=== PATIENT | female | born 1970 | race Caucasian/White ===

== ENCOUNTER → 2017-10-18 10:48 | Outpatient (CLI) | payer BC, SELFPAY ==
[2017-10-18 14:39] LABS: Basophils # 0.1 K/mm3 (0-0.2); Basophils % 0.9 % (0.1-2.0); Eosinophils # 0.2 K/mm3 (0.0-0.4); Eosinophils % 2.3 % (0.1-12.0); Hematocrit 37.5 % (37.0-47.0); Lymphocytes # 1.9 K/mm3 (0.7-4.5); Lymphocytes % 20.4 K/mm3 (10-50); Mean Corpuscular Hemoglobin 26.6 pg (27.0-31.2); Mean Corpuscular Volume 83.1 fl (81-99); Mean Platelet Volume 8.8 fl (7.4-10.4); Monocytes # 0.5 K/mm3 (0.1-1.0); Monocytes % 5.3 % (1.7-9.3); Neutrophils # 6.8 K/mm3 (1.8-7.8); Platelet Count 419 K/mm3 (142-424); Red Blood Count 4.52 M/mm3 (4.20-5.40); Red Cell Distribution Width 14.3 % (11.5-17.5); White Blood Count 9.5 K/mm3 (4.8-10.8)
[2017-10-18 15:10] LABS: Alanine Aminotransferase 31 U/L (12-78); Albumin Level 2.7 gm/dL (3.4-5.0); Albumin/Globulin Ratio 0.6 (1.1-1.8); Alkaline Phosphatase 79 U/L (46-116); Anion Gap 9.2 mEq/L (5-15); Aspartate Amino Transferase 40 U/L (15-37); Bilirubin,Total 0.3 mg/dL (0.2-1.0); Blood Urea Nitrogen 9 mg/dL (7-18); Calcium 9.2 mg/dL (8.5-10.1); Carbon Dioxide 32 mmol/L (21.0-32.0); Chloride 101 mmol/L (98-107); Creatinine,Serum 0.92 mg/dL (0.55-1.02); Estimated Glomerular Filt Rate 65 ml/min (>60); GFR (African American) 79 ML/MIN (>60); Globulin 4.9 gm/dl (1.3-3.2); Glucose 145 mg/dL (74-106); Potassium 3.2 mmoL/L (3.5-5.1); Sodium 139 mmol/L (136-145); Total Protein,Serum 7.6 gm/dL (6.4-8.2)
== END ==
PROVIDERS: PCP Nurse Practitioner Family; Visit Provider Nurse Practitioner Family
DX: L03.116 Cellulitis of left lower limb (principal); S37.009A Unspecified injury of unspecified kidney, initial encounter
CPT/HCPCS: 36415; 80053; 85025

== ENCOUNTER 2018-12-26 12:34 | Inpatient (IN) ==
[2018-12-26 13:02] LABS: Microscopic, Urine URINE MICROSCOPIC (MICROSCOPIC)
[2018-12-26 13:04] LABS: Appearance,Urine CLEAR (Clear); Bilirubin,Urine Negative (Negative); Blood, Urine Negative (Negative); Color,Urine YELLOW (Yellow); Glucose,Urine (UA) Negative (Negative); Ketones,Urine Negative (Negative); Leukocyte Esterase,Urine Negative (Negative); Protein,Urine Negative (Negative); Urobilinogen,Urine 0.2 EU/dl (0.2)
--- NOTE | 2018-12-26 13:13 | Emergency Department Note ---
ED Disposition Clinical Impression: Cellulitis of left lower extremity, Elevated lactic acid level Sepsis Qualifiers: Sepsis type: sepsis due to unspecified organism Qualified Code(s): A41.9 - Sepsis, unspecified organism Fever Qualifiers: Fever type: unspecified Qualified Code(s): R50.9 - Fever, unspecified Disposition: Admitted As Inpatient Condition on Discharge: Fair (Stable) Referrals: Xochilt Deng [Primary Care Provider] - Time of Disposition: 16:12 - Critical Care Critical Care Time: No Attestation: On 12/26/18, the high probability of a clinically significant, sudden or life threatening deterioration of the following system(s) required my full and direct attention, intervention and personal management. The time I documented below is in addition to time spent performing reported procedures but includes the following listed in this critical care notation. Medical Decision Making - Medical Records Medical records reviewed: Yes: I reviewed the patient's medical records. - Tato Inquiry Pt receiving controlled substance: No Tato was queried for this patient: No Vital Signs: 12/26/18 12:48 12/26/18 13:34 12/26/18 14:00 Temperature 103.1 F H 102.7 F H Temperature Source Oral Oral Pulse Rate [Left Radial] 131 H 128 H 132 H Respiratory Rate 24 Blood Pressure [Right Arm] 148/91 H 89/41 L 84/51 L Blood Pressure Mean [Right Arm] 110 57 62 Blood Pressure Source [Right Arm] Automatic Cuff Automatic Cuff Automatic Cuff Blood Pressure Position [Right Arm] Sitting Sitting Sitting 02 Sat by Pulse Oximetry 98 Oxygen Delivery Method Room Air 12/26/18 15:00 12/26/18 15:43 Temperature 100 F H Temperature Source Oral Pulse Rate [Left Radial] 132 H 119 H Respiratory Rate 22 Blood Pressure [Right Arm] 75/48 L 88/59 L Blood Pressure Mean [Right Arm] 57 68 Blood Pressure Source [Right Arm] Automatic Cuff Automatic Cuff Blood Pressure Position [Right Arm] Sitting Sitting 02 Sat by Pulse Oximetry 93 L 90 L Oxygen Delivery Method Room Air Room Air - Lab Data Lab Results 12/26/18 13:00: Urine Color Yellow, Urine Appearance Clear, Urine pH 5.0, Ur Specific [place] 1.020, Urine Protein Negative, Urine Glucose (UA) Negative, Urine Ketones Negative, Urine Blood Negative, Urine Nitrate Negative, Urine Bilirubin Negative, Urine Urobilinogen 0.2, Ur Leukocyte Esterase Negative, Urine RBC None, Urine WBC Occasional, Ur Squamous Epith Cells Occasional, Urine Bacteria Trace 12/26/18 14:39: WBC 5.4, RBC 5.07, Hgb 13.5, Hct 43.6, MCV 85.9, MCH 26.6 L, MCHC 31.0 L, RDW 13.4, Plt Count 304, MPV 7.6, Neut % (Auto) 90.4 H, Lymph % (Auto) 5.6 L, [place] % (Auto) 3.4, Eos % (Auto) 0.5, Baso % (Auto) 0.2, Neut # (Auto) 4.9, Lymph # (Auto) 0.3 L, [place] # (Auto) 0.2, Eos # (Auto) 0.0, Baso # (Auto) 0.0, Total Counted 100, Neutrophils % (Manual) 85 H, Band Neutrophils % 7.0, Lymphocytes % (Manual) 5 L, Monocytes % (Manual) 2, Eosinophils % (Manual) 1, Platelet Estimate Normal, RBC Morphology Normal, Stomatocytes 1+ 12/26/18 14:39: Sodium 137, Potassium 4.0, Chloride 100, Carbon Dioxide 29, Anion Gap 12.0, BUN 17, Creatinine 1.20 H, Estimated Creat Clear 54, Estimated GFR 48 L, Est GFR ( Amer) 58 L, Glucose 118 H, Calcium 9.3, Total Bilirubin 0.7, AST 18, ALT 30, Alkaline Phosphatase 78, Total Protein 7.7, Albumin 3.1 L, Globulin 4.6 H, Albumin/Globulin Ratio 0.7 L 12/26/18 14:39: Lactate 2.9 H Result diagrams: 12/26/18 14:39 12/26/18 14:39 Orders (Tests/Meds): ED MEDICATIONS Generic Name Dose Route Start Last Admin Trade Name Freq PRN Reason Stop Dose Admin Vancomycin HCl 2,750 mg/ 500 mls @ 166.667 mls/hr 12/26/18 15:15 Sodium Chloride IV 12/26/18 18:14 ONCE ONE Sodium Chloride 3,140 mls @ 999 mls/hr 12/26/18 15:15 Sod Chlor 0.9% 1000ml Bag IV 12/26/18 18:23 .Q3H9M [facility]ON Miscellaneous 1 each 12/26/18 15:15 12/26/18 15:24 Vancomycin Consult Request * 01/25/19 15:14 1 each CONSULT [facility]ARMACY [facility] Administration Discontinued Medications Generic Name Dose Route Start Last Admin Trade Name Fito PRN Reason Stop Dose Admin Acetaminophen 925 mg 12/26/18 14:15 12/26/18 14:15 Acetaminophen 325mg Tab PO 12/26/18 14:16 925 mg ONCE ONE Administration Sodium Chloride 1,000 mls @ 999 mls/hr 12/26/18 13:00 12/26/18 13:27 Sod Chlor 0.9% 1000ml Bag IV 12/26/18 14:00 999 mls/hr .Q1H1M MARLON Administration Piperacillin Sod/Tazobactam 100 mls @ 200 mls/hr 12/26/18 15:04 12/26/18 15 :24 Sod 4.5 gm/ Sodium Chloride IV 12/26/18 15:33 200 mls/hr ONCE ONE Administration Protocol Ketorolac Tromethamine 30 mg 12/26/18 12:53 12/26/18 13:27 Toradol 30mg/Ml Vial IV 12/26/18 12:54 30 mg ONCE ONE Administration Ondansetron HCl 4 mg 12/26/18 12:54 12/26/18 13:27 Zofran 4mg/2ml Vial IV 12/26/18 12:55 4 mg ONCE ONE Administration ORDERS Category Date Time Status Chest XR -- portable [XR chest portable] Stat Exams 12/26/18 15:32 Ordered Blood Culture Stat Micro 12/26/18 12:52 Received - Radiology Data #1 Image(s): Chest Image Reviewed: Yes I reviewed the patient's radiology image Preliminary Findings: Normal/NAD (Preliminary reading.) - ECG Data Tracing #1 I reviewed this ECG and interpreted as documented below: (EKG at 15:15 shows sinus tachycardia, LAE, septal infarct (age undetermined), rate of 124 BPM.) Medical Decision Narrative: 16:08 Pt evaluated and worked up. All labs reviewed. PCXR and EKG reviewed. BC x 2 ordered and pending. Pt meets sepsis criteria. IV fluid bolus of 30 ml/kg initiated. Zosyn 4.5 gm IVPB and Vancomycin (per pharmacy dosing) ordered. Case discussed with Dr. Galloway supervisor electron tube processing for service and he has accepted admission/care of pt. Results of work up, diagnosis and care plan discussed with pt. She understands, agrees and all questions answered. General Adult HPI - General Chief complaint: PAIN Stated complaint: back pain Time Seen by Provider: 12/26/18 13:10 Mode of Arrival: Ambulatory Source of Information: Patient Limitations: No Limitations Description of Symptoms (Recalled from ER Triage Doc. by RN): to ed per pvt car states woke up with lower back pain, nausea, chills c/o burning with urination. cpta aspirin - History of Present Illness HPI narrative: Pt is here in the ER via POV from home c/o low back pain, fever and chills. Onset this morning upon waking up. Pt has had dysuria and frequency for the past few days. No hematuria. No flank pain. History of UTI's in the past. Pt also c/o increase in chronic LLE swelling over the past 2 days as well as increased redness to left leg with increase warmth to touch. Pt also noted redness and warmth to touch at medial left thigh today. No other complaints. - Related Data Home Medications Medication Instructions Recorded Confirmed No Known Home Medications 12/26/18 12/26/18 Allergies Allergy/AdvReac Type Severity Reaction Status Date / Time No Known Allergies Allergy Verified 12/26/18 12:54 [facility] History - Hepatitis A Screen Drug use history?: No High risk sexual behaviors?: No History of sexually transmitted infection?: No Currently employed?: No Childcare worker?: No Do you have indoor plumbing?: Yes Do you have electricity?: Yes Attestation statement:: This patient has been screened for Hepatitis A risk factors. I have reviewed the patient's past medical history: Yes - Social History Alcohol Intake: never Occupational Status: other ROS Obtained: Yes All systems reviewed & no additional complaints - Constitutional Constitutional: Reports system reviewed and no additional complaints, except as docu, Reports as per HPI, Reports chills, Reports fever(s) - Eyes Eyes: Reports system reviewed and no additional complaints, except as docu - ENT Ears, Nose, Mouth, and Throat: Reports system reviewed and no additional complaints, except as docu - Cardiovascular Cardiovascular: Reports system reviewed and no additional complaints, except as docu - Respiratory Respiratory: Yes system reviewed and no additional complaints, except as docu - Gastrointestinal Gastrointestingal: Reports: system reviewed and no additional complaints, except as docu - Genitourinary Female Genitourinary: Reports system reviewed and no additional complaints, except as docu - Musculoskeletal Musculoskeletal: Reports system reviewed and no additional complaints, except as docu, Reports as per HPI, Reports back pain (lower) - Integumentary/Breasts Skin/Breast: Reports system reviewed and no additional complaints, except as docu - Neurologic Neurologic: Reports system reviewed and no additional complaints, except as docu - Endocrine Endocrine: Reports system reviewed and no additional complaints, except as docu - Hematologic/Lymphatic Henatologic/Lymphatic: Reports system reviewed and no additional complaints, except as docu - Allergic/Immunologic Allergic/Immunologic: Reports system reviewed and no additional complaints, except as docu Physical Exam - General General appearance: alert, in no apparent distress - Head Head exam: atraumatic, normocephalic, normal inspection - Eye Eye exam: Present: normal appearance, PERRL, EOMI - ENT ENT exam: Present: normal exam, mucous membranes moist - Neck Neck exam: Present: normal inspection, trachea midline. Absent: tenderness - Chest Chest inspection: Present: normal inspection, symmetric chest wall rise. Absent: tenderness - Respiratory Respiratory exam: Present: normal lung sounds bilaterally. Absent: respiratory distress - Cardiovascular Cardiovascular exam: Present: regular rate, normal heart sounds. Absent: rubs, gallop, clicks - Abdominal Exam Abdominal exam: Present: soft, normal bowel sounds. Absent: tenderness, guarding, rebound, rigidity, Madsen's sign, tenderness at McBurney's Point - Extremities Exam Extremities exam: Present: normal inspection, full ROM, other (Chronic bilateral leg 2+ pitting edema with L>R. Swelling and erythema with increased warmth to touch extending from distal left leg to medial left thigh.) - Back Exam Back exam: Present: full ROM. Absent: vertebral tenderness - Neurological Exam Neurological exam: Present: alert, oriented X3, CN II-XII intact - Psychiatric Psychiatric exam: Present: normal affect, normal mood - Skin Skin exam: Present: warm, dry, other (Chronic stasis dermatitis changes to bilateral legs.)
[2018-12-26 13:30] LABS: Bacteria,Urine Trace /lpf; Squamous Epithelial Cell,Urine Occasional #/hpf (0-5); WBC,Urine Occasional #/hpf (0-3)
[2018-12-26 15:17] LABS: Basophils % 0.2 % (0.1-2.0); Eosinophils % 0.5 % (0.1-12.0); Hematocrit 43.6 % (37.0-47.0); Hemoglobin 13.5 g/dL (12.2-16.2); Lymphocytes # 0.3 K/mm3 (0.7-4.5); Lymphocytes % 5.6 % (10-50); Mean Corpuscular Volume 85.9 fl (81-99); Mean Platelet Volume 7.6 fl (7.4-10.4); Monocytes # 0.2 K/mm3 (0.1-1.0); Monocytes % 3.4 % (1.7-9.3); Neutrophils # 4.9 K/mm3 (1.8-7.8); Neutrophils % 90.4 % (37.0-80.0); Platelet Count 304 K/mm3 (142-424); Red Blood Count 5.07 M/mm3 (4.20-5.40); Red Cell Distribution Width 13.4 % (11.5-17.5); White Blood Count 5.4 K/mm3 (4.8-10.8)
[2018-12-26 15:27] LABS: Albumin Level 3.1 gm/dL (3.4-5.0); Albumin/Globulin Ratio 0.7 (1.1-1.8); Bilirubin,Total 0.7 mg/dL (0.2-1.0); Calcium 9.3 mg/dL (8.5-10.1); Globulin 4.6 gm/dl (1.3-3.2); Total Protein,Serum 7.7 gm/dL (6.4-8.2)
[2018-12-26 15:43] LABS: Eosinophils % 1 % (0-3); Lymphocytes % 5 % (10-50); Monocytes % 2 % (2-9); Neutrophils % 85 % (42-76); Total Cells Counted 100
[2018-12-26 15:45] LABS: Stomatocytes 1+
[2018-12-26 15:46] LABS: RBC Morphology Normal
--- NOTE | 2018-12-26 15:55 | Non-Invasive Vascular Report ---
"Venous Exam Indications: 729.81 Swelling of limb. IMPRESSIONS 1. There is no evidence of significant Reflux. 2. No evidence of deep or superficial vein thrombosis involving the left lower extremity 3. 3.9 cm lymph node seen left groin. History: Risk factors: Obese. Left lower extremity venous duplex evaluation. Doppler flow study including spectral analysis, color and zimmer scale imaging. Location: Bedside. Patient status: Emergency department. Tables: Venous flow and imaging: + +-------+ + |Location |Overall|Flow properties | + +-------+ + |Left common femoral |Patent |Normal phasicity; spontaneous; | | | |normal augmentation; compressible | + +-------+ + |Left saphenofemoral junction|Patent |Compressible | + +-------+ + |Left profunda femoral |Patent |Compressible | + +-------+ + |Left femoral |Patent |Normal phasicity; spontaneous; | | | |normal augmentation; compressible | + +-------+ + |Left greater saphenous |Patent |Normal phasicity; spontaneous; | | | |normal augmentation; compressible | + +-------+ + |Left popliteal |Patent |Normal phasicity; spontaneous; | | | |normal augmentation; compressible | + +-------+ + |Left posterior tibial |Patent |Compressible | + +-------+ + |Left peroneal |Patent |Compressible | + +-------+ + |Left gastrocnemius |Patent |Compressible | + +-------+ + |Left soleal |Patent |Compressible | + +-------+ + (Report amended ) Electronically signed by: Og Stephens [id number]"
--- NOTE | 2018-12-26 19:03 | History & Physical Report ---
*Admission Date: 12/26/18 *Chief complaint: Not feeling well *History of present illness: This 48-year-old white female 2 para 2 was admitted through the emergency room with evidence of sepsis and hypotension. She states that yesterday she felt fine but her legs had been swelling. This morning she began to feel bad and developed a fever. She thought she might have a urinary tract infection. She has some chronic problems with swelling and stasis changes in the legs. Indeed, 2 years ago she was hospitalized at [facility] for cellulitis of the legs. When she presented in the emergency room at [facility] on the day of admission, her blood pressure was running low and her heart rate was elevated in the 130s. She was given IV fluids. Her lactic acid was found to be elevated. Her white count was normal. The patient is on no current medications except for Xyzal allergy medication and 4 baby aspirin. She does have a prior history of treatment for blood pressure thyroid and diabetes. She states that 2 years ago she was taken off medications when she saw a grade checker in [place]. She was treated for thyroid disease for approximately 2 years. [facility] History Medical History: Reports:: Diabetes Mellitus Type 2, Hypertension Denies:: Cancer, Diabetes Mellitus Type 1, MRSA *Have you ever received a pneumonia vaccine?: No *Have you received a flu vaccine this season?: No Other Medical History: Reports: Hypothyroidism Laterality Cases: Bilateral: Tonsillectomy Other Surgeries: Yes: Tubal Ligation Amputation: No Fractures: No - *Social History Educational Level: Completed High School Smoking Status: Former smoker (Smoked for 20 years. Stopped 10 years ago) Tobacco Type: cigarettes Alcohol Intake Frequency:: holidays/special occasions only Substance Use Type: denies use *Occupational Status:: other Housing: house Household Members: children (2 sons aged 20 and 21) *Travel in the last 8 weeks: None - Psychiatric History Expresses thoughts of harming self/others: None Suicide Plan Description: No Plan Family Hx:: Asthma, Coronary Artery Disease, Diabetes, Heart Attack, Hyperlipidemia, Hypertension, Tuberculosis : 2 Para: 2 Review of Systems - Constitutional Reports fever(s), Reports weakness, Denies chills - Eyes Denies change in vision - ENT Denies abnormal hearing, Denies hoarseness, Denies sore throat - *Cardiovascular Reports shortness of breath (Some), Reports fast heart rate, Denies chest pain, Denies chest pain at rest, Denies chest pain with activity, Denies leg pain with activity - *Respiratory Denies chest congestion, Denies cough - *Gastrointestinal Denies abdominal pain, Denies change in bowel habits - *Genitourinary Reports other (Some dysuria) - Integumentary/Breasts Reports lesions - *Neurologic Reports dizziness, Reports weakness - Allergic/Immunologic Denies lip swelling Meds Home Medications Medication Instructions Recorded Confirmed Type No Known Home Medications 12/26/18 12/26/18 History Allergies Allergy/AdvReac Type Severity Reaction Status Date / Time No Known Allergies Allergy Verified 12/26/18 12:54 Exam Vital signs and Labs for Last 24 Hours: Temp Pulse Resp BP Pulse Ox 98.7 F 112 H 17 90/50 L 96 12/26/18 18:00 12/26/18 18:00 12/26/18 18:00 12/26/18 18:00 12/26/18 18:00 Laboratory Results - last 24 hr 12/26/18 13:00: Urine Color Yellow, Urine Appearance Clear, Urine pH 5.0, Ur Specific [place] 1.020, Urine Protein Negative, Urine Glucose (UA) Negative, Urine Ketones Negative, Urine Blood Negative, Urine Nitrate Negative, Urine Bilirubin Negative, Urine Urobilinogen 0.2, Ur Leukocyte Esterase Negative, Urine RBC None, Urine WBC Occasional, Ur Squamous Epith Cells Occasional, Urine Bacteria Trace 12/26/18 14:39: WBC 5.4, RBC 5.07, Hgb 13.5, Hct 43.6, MCV 85.9, MCH 26.6 L, MCHC 31.0 L, RDW 13.4, Plt Count 304, MPV 7.6, Neut % (Auto) 90.4 H, Lymph % (Auto) 5.6 L, [place] % (Auto) 3.4, Eos % (Auto) 0.5, Baso % (Auto) 0.2, Neut # (Auto) 4.9, Lymph # (Auto) 0.3 L, [place] # (Auto) 0.2, Eos # (Auto) 0.0, Baso # (Auto) 0.0, Total Counted 100, Neutrophils % (Manual) 85 H, Band Neutrophils % 7.0, Lymphocytes % (Manual) 5 L, Monocytes % (Manual) 2, Eosinophils % (Manual) 1, Platelet Estimate Normal, RBC Morphology Normal, Stomatocytes 1+ 12/26/18 14:39: Sodium 137, Potassium 4.0, Chloride 100, Carbon Dioxide 29, Anion Gap 12.0, BUN 17, Creatinine 1.20 H, Estimated Creat Clear 54, Estimated GFR 48 L, Est GFR ( Amer) 58 L, Glucose 118 H, Calcium 9.3, Total Bilirubin 0.7, AST 18, ALT 30, Alkaline Phosphatase 78, Total Protein 7.7, Albumin 3.1 L, Globulin 4.6 H, Albumin/Globulin Ratio 0.7 L 12/26/18 14:39: Lactate 2.9 H I & O for Last 24 hours: Intake & Output 12/24/18 12/25/18 12/26/18 12/27/18 11:59 11:59 11:59 11:59 Weight 326 lb 6 oz - Constitutional no acute distress (Feels better since admission and treatment) - *Routine HEENT Exam Head: Present: normocephalic Eye: Present: PERRL ENT: Present: mucous membranes dry (Lips are pale.) - *Routine Neck Exam Present: supple. Absent: thyromegaly, tenderness - Routine Chest/Breast/Axilla Exam Breast: Absent: tenderness - *Routine Respiratory Exam Present: CTA bilaterally - *Routine Cardiovascular Exam Present: tachycardia (120) - *Routine Abdominal Exam Present: soft (Obese). Absent: tenderness, surgical scars - *Routine Rectal Exam Comments: Not done - *Routine Exam Comments: Not performed - *Routine Extremities Exam Present: edema (Bilateral) Comments: Bilateral stasis changes worse on the left lower leg with excoriations. No active weeping. Changes look more chronic than acute. - *Routine Skin Exam Present: pallor (Of lips) - *Routine Neurological Exam Present: alert, oriented X3, moving all extremities. Absent: altered mental status Assessment and Plan (1) Stasis dermatitis of both legs Current visit: Yes Status: Acute Category: Medical Code(s): I87.2 - Venous insufficiency (chronic) (peripheral) (2) Hypotension Current visit: Yes Status: Acute Category: Medical Code(s): I95.9 - Hypotension, unspecified (3) Morbid obesity Current visit: Yes Status: Acute Category: Medical Code(s): E66.01 - Morbid (severe) obesity due to excess calories - Assessment and plan all Dx Assessment and Plan for all problems:: See her orders. At present she is receiving fluid boluses for sepsis. She is actually on a low-dose of Levophed. She is receiving IV antibiotics: Vancomycin and Zosyn. Pantera wraps will be applied to the lower extremities. We will be checking her A1c and TSH.
[2018-12-26 23:23] LABS: Basophils # 0.1 K/mm3 (0-0.2); Basophils % 0.3 % (0.1-2.0); Eosinophils # 0.2 K/mm3 (0.0-0.4); Hematocrit 41.2 % (37.0-47.0); Hemoglobin 12.3 g/dL (12.2-16.2); Lymphocytes # 0.3 K/mm3 (0.7-4.5); Lymphocytes % 1.9 % (10-50); Mean Corpuscular Volume 87.7 fl (81-99); Mean Platelet Volume 7.7 fl (7.4-10.4); Monocytes # 0.3 K/mm3 (0.1-1.0); Monocytes % 1.6 % (1.7-9.3); Neutrophils # 16.6 K/mm3 (1.8-7.8); Neutrophils % 95.2 % (37.0-80.0); Platelet Count 319 K/mm3 (142-424); Red Cell Distribution Width 13.6 % (11.5-17.5); White Blood Count 17.4 K/mm3 (4.8-10.8)
[2018-12-26 23:32] LABS: Lymphocytes % 1 % (10-50); Neutrophils % 75 % (42-76); Total Cells Counted 100
[2018-12-26 23:33] LABS: Anisocytosis 1+; Hypochromasia 1+
[2018-12-26 23:53] LABS: Anion Gap 12.7 mEq/L (5-15)
[2018-12-26 23:56] LABS: Calcium 8.3 mg/dL (8.5-10.1)
[2018-12-27 05:34] LABS: Basophils # 0.1 K/mm3 (0-0.2); Basophils % 0.4 % (0.1-2.0); Eosinophils # 0.2 K/mm3 (0.0-0.4); Eosinophils % 0.8 % (0.1-12.0); Hematocrit 39.9 % (37.0-47.0); Hemoglobin 12.2 g/dL (12.2-16.2); Lymphocytes # 0.3 K/mm3 (0.7-4.5); Lymphocytes % 1.3 % (10-50); Mean Corpuscular HGB Conc 30.7 g/dL (31.8-35.4); Mean Corpuscular Volume 85.5 fl (81-99); Mean Platelet Volume 7.6 fl (7.4-10.4); Monocytes # 0.3 K/mm3 (0.1-1.0); Monocytes % 1.4 % (1.7-9.3); Neutrophils # 19.4 K/mm3 (1.8-7.8); Neutrophils % 96.2 % (37.0-80.0); Platelet Count 305 K/mm3 (142-424); Red Blood Count 4.66 M/mm3 (4.20-5.40); Red Cell Distribution Width 13.7 % (11.5-17.5)
[2018-12-27 05:35] LABS: White Blood Count 20.2 K/mm3 (4.8-10.8)
[2018-12-27 06:17] LABS: Albumin Level 2.4 gm/dL (3.4-5.0); Albumin/Globulin Ratio 0.6 (1.1-1.8); Anion Gap 13.6 mEq/L (5-15); Bilirubin,Total 0.6 mg/dL (0.2-1.0); Globulin 3.8 gm/dl (1.3-3.2); Total Protein,Serum 6.2 gm/dL (6.4-8.2)
--- NOTE | 2018-12-27 09:10 | Progress Note ---
Internal Medicine - PN: Subj *Date: 12/27/18 *Time: 09:06 Interval history: This patient has been very ill due to sepsis. She apparently has gram- positive's in the bloodstream. Her blood pressure is running low through the night and she has required low doses of levophed. At present her blood pressure is in the 100/50 range. She certainly looks better this morning and states that she feels better. The pallor of the lips is improved. Her heart rate remains tachy. Initially her urine output was poor. A Hollis catheter was inserted. She received 20 mg of Lasix IV and since that time her urinary output has been adequate. I do leave that the poor urinary output initially was a reflection of her severity of sepsis. The balance of her I/O is 1222ml since admission. Exam Vital signs and Labs for Last 24 Hours: Temp Pulse Resp BP Pulse Ox 99.5 F 100 H 18 120/60 100 12/27/18 08:00 12/27/18 08:00 12/27/18 08:00 12/27/18 08:00 12/27/18 08:00 Laboratory Results - last 24 hr 12/26/18 13:00: Urine Color Yellow, Urine Appearance Clear, Urine pH 5.0, Ur Specific [place] 1.020, Urine Protein Negative, Urine Glucose (UA) Negative, Urine Ketones Negative, Urine Blood Negative, Urine Nitrate Negative, Urine Bilirubin Negative, Urine Urobilinogen 0.2, Ur Leukocyte Esterase Negative, Urine RBC None, Urine WBC Occasional, Ur Squamous Epith Cells Occasional, Urine Bacteria Trace 12/26/18 14:39: WBC 5.4, RBC 5.07, Hgb 13.5, Hct 43.6, MCV 85.9, MCH 26.6 L, MCHC 31.0 L, RDW 13.4, Plt Count 304, MPV 7.6, Neut % (Auto) 90.4 H, Lymph % (Auto) 5.6 L, [place] % (Auto) 3.4, Eos % (Auto) 0.5, Baso % (Auto) 0.2, Neut # (Auto) 4.9, Lymph # (Auto) 0.3 L, [place] # (Auto) 0.2, Eos # (Auto) 0.0, Baso # (Auto) 0.0, Total Counted 100, Neutrophils % (Manual) 85 H, Band Neutrophils % 7.0, Lymphocytes % (Manual) 5 L, Monocytes % (Manual) 2, Eosinophils % (Manual) 1, Platelet Estimate Normal, RBC Morphology Normal, Stomatocytes 1+ 12/26/18 14:39: Sodium 137, Potassium 4.0, Chloride 100, Carbon Dioxide 29, Anion Gap 12.0, BUN 17, Creatinine 1.20 H, Estimated Creat Clear 54, Estimated GFR 48 L, Est GFR ( Amer) 58 L, Glucose 118 H, Calcium 9.3, Total Bilirubin 0.7, AST 18, ALT 30, Alkaline Phosphatase 78, Total Protein 7.7, Albumin 3.1 L, Globulin 4.6 H, Albumin/Globulin Ratio 0.7 L 12/26/18 14:39: Lactate 2.9 H 12/26/18 14:39: Hemoglobin A1c 6.4 12/26/18 14:39: TSH 1.59 12/26/18 18:35: Lactate 4.1 H 12/26/18 21:15: Lactate 5.4 H 12/26/18 23:10: WBC 17.4 H D, RBC 4.70, Hgb 12.3, Hct 41.2, MCV 87.7, MCH 26.3 L , MCHC 30.0 L, RDW 13.6, Plt Count 319, MPV 7.7, Neut % (Auto) 95.2 H, Lymph % (Auto) 1.9 L, [place] % (Auto) 1.6 L, Eos % (Auto) 1.0, Baso % (Auto) 0.3, Neut # (Auto) 16.6 H, Lymph # (Auto) 0.3 L, [place] # (Auto) 0.3, Eos # (Auto) 0.2, Baso # (Auto) 0.1, Total Counted 100, Neutrophils % (Manual) 75, Band Neutrophils % 24.0 H, Lymphocytes % (Manual) 1 L, Platelet Estimate Normal, Hypochromasia 1+, Anisocytosis 1+ 12/26/18 23:10: Sodium 136, Potassium 3.7, Chloride 102, Carbon Dioxide 25, Anion Gap 12.7, BUN 21 H, Creatinine 2.01 H D, Estimated Creat Clear 33, Estimated GFR 26 L, Est GFR ( Amer) 32 L D, Glucose 154 H D, Calcium 8.3 L D, Total Creatine Kinase 462 H, CK-MB (CK-2) 15.6 H*, CK-MB (CK-2) Rel Index 3.4, Troponin I 0.61 H 12/27/18 05:25: WBC 20.2 H*, RBC 4.66, Hgb 12.2, Hct 39.9, MCV 85.5, MCH 26.3 L, MCHC 30.7 L, RDW 13.7, Plt Count 305, MPV 7.6, Neut % (Auto) 96.2 H, Lymph % (Auto) 1.3 L, Bay % (Auto) 1.4 L, Eos % (Auto) 0.8, Baso % (Auto) 0.4, Neut # (Auto) 19.4 H, Lymph # (Auto) 0.3 L, [place] # (Auto) 0.3, Eos # (Auto) 0.2, Baso # (Auto) 0.1 12/27/18 05:25: Sodium 134 L, Potassium 4.6 D, Chloride 101, Carbon Dioxide 24, Anion Gap 13.6, BUN 24 H, Creatinine 2.04 H, Estimated Creat Clear 33, Estimated GFR 26 L, Est GFR ( Amer) 31 L, Glucose 156 H, Calcium 8.0 L, Total Bilirubin 0.6, AST 37 D, ALT 40 D, Alkaline Phosphatase 57, Total Protein 6.2 L, Albumin 2.4 L D, Globulin 3.8 H, Albumin/Globulin Ratio 0.6 L I & O for Last 24 hours: Intake & Output 12/24/18 12/25/18 12/26/18 12/27/18 11:59 11:59 11:59 11:59 Intake Total 2346.875 / 2346.875 Output Total 1125 / 1125 Balance 1221.875 / 1221.875 Weight 336 lb 4 oz Microbiology Reports for the Last 24 Hours: Microbiology 12/26/18 12:52 Blood Blood Culture - Preliminary 12/26/18 13:30 Blood Blood Culture - Preliminary Gram Positive Cocci - Constitutional no acute distress - *Routine HEENT Exam Head: Present: normocephalic ENT: Present: mucous membranes moist (Less lip pallor) - *Routine Respiratory Exam Present: CTA bilaterally. Absent: respiratory distress - *Routine Cardiovascular Exam Present: tachycardia - *Routine Abdominal Exam Present: soft (Obese) - *Routine Extremities Exam Present: edema (Patnera wraps in place) - *Routine Neurological Exam Present: alert, oriented X3 Assessment and Plan (1) Sepsis Current visit: Yes Status: Acute Qualifiers: Sepsis type: sepsis due to unspecified organism Qualified Code(s): A41.9 - Sepsis, unspecified organism Category: Medical Code(s): A41.9 - Sepsis, unspecified organism (2) Stasis dermatitis of both legs Current visit: Yes Status: Acute Category: Medical Code(s): I87.2 - Venous insufficiency (chronic) (peripheral) (3) Cellulitis of left lower extremity Current visit: Yes Status: Acute Category: Medical Code(s): L03.116 - Cellulitis of left lower limb (4) Hypotension Current visit: Yes Status: Acute Category: Medical Code(s): I95.9 - Hypotension, unspecified (5) Elevated lactic acid level Current visit: Yes Status: Acute Category: Medical Code(s): R79.89 - Other specified abnormal findings of blood chemistry (6) Morbid obesity Current visit: Yes Status: Acute Category: Medical Code(s): E66.01 - Morbid (severe) obesity due to excess calories - Assessment and plan all Dx Assessment and Plan for all problems:: Continue current regimen. We are trying to wean her off norepinephrine.
--- NOTE | 2018-12-27 10:07 | Pharmacy Consult Notes ---
- Pharmacy Consult Date: 12/27/18 Time: 10:04 Referring provider: DR. MELLO Reason for Consult:: VANCOMYCIN DOSING Allergies and ADEs:: Allergies Allergy/AdvReac Type Severity Reaction Status Date / Time No Known Allergies Allergy Verified 12/26/18 12:54 Home Medications:: Home Medications Medication Instructions Recorded Confirmed Type No Known Home Medications 12/26/18 12/26/18 History Height: 1.7 m Weight: 152.52 kg Laboratory Results:: Laboratory Results - last 24 hr 12/26/18 13:00: Urine Color Yellow, Urine Appearance Clear, Urine pH 5.0, Ur Specific [place] 1.020, Urine Protein Negative, Urine Glucose (UA) Negative, Urine Ketones Negative, Urine Blood Negative, Urine Nitrate Negative, Urine Bilirubin Negative, Urine Urobilinogen 0.2, Ur Leukocyte Esterase Negative, Urine RBC None, Urine WBC Occasional, Ur Squamous Epith Cells Occasional, Urine Bacteria Trace 12/26/18 14:39: WBC 5.4, RBC 5.07, Hgb 13.5, Hct 43.6, MCV 85.9, MCH 26.6 L, MCHC 31.0 L, RDW 13.4, Plt Count 304, MPV 7.6, Neut % (Auto) 90.4 H, Lymph % (Auto) 5.6 L, [place] % (Auto) 3.4, Eos % (Auto) 0.5, Baso % (Auto) 0.2, Neut # (Auto) 4.9, Lymph # (Auto) 0.3 L, [place] # (Auto) 0.2, Eos # (Auto) 0.0, Baso # (Auto) 0.0, Total Counted 100, Neutrophils % (Manual) 85 H, Band Neutrophils % 7.0, Lymphocytes % (Manual) 5 L, Monocytes % (Manual) 2, Eosinophils % (Manual) 1, Platelet Estimate Normal, RBC Morphology Normal, Stomatocytes 1+ 12/26/18 14:39: Sodium 137, Potassium 4.0, Chloride 100, Carbon Dioxide 29, A nion Gap 12.0, BUN 17, Creatinine 1.20 H, Estimated Creat Clear 54, Estimated GFR 48 L, Est GFR ( Amer) 58 L, Glucose 118 H, Calcium 9.3, Total Bilirubin 0.7, AST 18, ALT 30, Alkaline Phosphatase 78, Total Protein 7.7, Albumin 3.1 L, Globulin 4.6 H, Albumin/Globulin Ratio 0.7 L 12/26/18 14:39: Lactate 2.9 H 12/26/18 14:39: Hemoglobin A1c 6.4 12/26/18 14:39: TSH 1.59 12/26/18 18:35: Lactate 4.1 H 12/26/18 21:15: Lactate 5.4 H 12/26/18 23:10: WBC 17.4 H D, RBC 4.70, Hgb 12.3, Hct 41.2, MCV 87.7, MCH 26.3 L , MCHC 30.0 L, RDW 13.6, Plt Count 319, MPV 7.7, Neut % (Auto) 95.2 H, Lymph % (Auto) 1.9 L, [place] % (Auto) 1.6 L, Eos % (Auto) 1.0, Baso % (Auto) 0.3, Neut # (Auto) 16.6 H, Lymph # (Auto) 0.3 L, [place] # (Auto) 0.3, Eos # (Auto) 0.2, Baso # (Auto) 0.1, Total Counted 100, Neutrophils % (Manual) 75, Band Neutrophils % 24.0 H, Lymphocytes % (Manual) 1 L, Platelet Estimate Normal, Hypochromasia 1+, Anisocytosis 1+ 12/26/18 23:10: Sodium 136, Potassium 3.7, Chloride 102, Carbon Dioxide 25, Anion Gap 12.7, BUN 21 H, Creatinine 2.01 H D, Estimated Creat Clear 33, Estimated GFR 26 L, Est GFR ( Amer) 32 L D, Glucose 154 H D, Calcium 8.3 L D, Total Creatine Kinase 462 H, CK-MB (CK-2) 15.6 H*, CK-MB (CK-2) Rel Index 3.4, Troponin I 0.61 H 12/27/18 05:25: WBC 20.2 H*, RBC 4.66, Hgb 12.2, Hct 39.9, MCV 85.5, MCH 26.3 L, MCHC 30.7 L, RDW 13.7, Plt Count 305, MPV 7.6, Neut % (Auto) 96.2 H, Lymph % (Auto) 1.3 L, [place] % (Auto) 1.4 L, Eos % (Auto) 0.8, Baso % (Auto) 0.4, Neut # (Auto) 19.4 H, Lymph # (Auto) 0.3 L, [place] # (Auto) 0.3, Eos # (Auto) 0.2, Baso # (Auto) 0.1 12/27/18 05:25: Sodium 134 L, Potassium 4.6 D, Chloride 101, Carbon Dioxide 24, Anion Gap 13.6, BUN 24 H, Creatinine 2.04 H, Estimated Creat Clear 33, Estimated GFR 26 L, Est GFR ( Amer) 31 L, Glucose 156 H, Calcium 8.0 L, Total Bilirubin 0.6, AST 37 D, ALT 40 D, Alkaline Phosphatase 57, Total Protein 6.2 L, Albumin 2.4 L D, Globulin 3.8 H, Albumin/Globulin Ratio 0.6 L Medical History: Reports:: Diabetes Mellitus Type 2, Hypertension Denies:: Cancer, Diabetes Mellitus Type 1, MRSA Assessment and Plan (1) Sepsis Current visit: Yes Status: Acute Qualifiers: Sepsis type: sepsis due to unspecified organism Qualified Code(s): A41.9 - Sepsis, unspecified organism Category: Medical Code(s): A41.9 - Sepsis, unspecified organism (2) Stasis dermatitis of both legs Current visit: Yes Status: Acute Category: Medical Code(s): I87.2 - Venous insufficiency (chronic) (peripheral) (3) Cellulitis of left lower extremity Current visit: Yes Status: Acute Category: Medical Code(s): L03.116 - Cellulitis of left lower limb (4) Hypotension Current visit: Yes Status: Acute Category: Medical Code(s): I95.9 - Hypotension, unspecified (5) Elevated lactic acid level Current visit: Yes Status: Acute Category: Medical Code(s): R79.89 - Other specified abnormal findings of blood chemistry (6) Morbid obesity Current visit: Yes Status: Acute Category: Medical Code(s): E66.01 - Morbid (severe) obesity due to excess calories - Assessment and plan all Dx Assessment and Plan for all problems:: BASED ON PATIENT FACTORS, RECOMMEND VANCOMYCIN 2,750MG EVERY 24 HOURS. PATIENT'S SCR INCREASED DUE TO COMBINATION OF VANCOMYCIN AND ZOSYN. BMP AND CBC ORDERED FOR TOMORROW AND ZOSYN HAS BEEN RENALLY DOSED FROM 4.5GM EVERY 8 HOURS TO 2.25GM EVERY 6 HOURS DUE TO POOR RENAL FUNCTION. PHARMACY WILL CONTINUE TO MONITOR AND ADJUST DOSE APPROPRIATE. -MITRA SALD
--- NOTE | 2018-12-27 10:13 | Pharmacy Consult Notes ---
[facility] Pharmacy VTE Monitoring - Patient Demographics Admission date: 12/26/18 Report Date: 12/27/18 Time: 10:13 Allergies/Adverse Reactions: Patient Allergies No Known Allergies Allergy (Verified 12/26/18 12:54) Height: 1.7 m Weight: 152.52 kg Patient Problems: Current Active Problems (Updated 12/26/18 @ 19:20 by Steven Galloway MD) Sepsis (Acute) Cellulitis of left lower extremity (Acute) Fever (Acute) Elevated lactic acid level (Acute) Stasis dermatitis of both legs (Acute) Hypotension (Acute) Morbid obesity (Acute) - VTE Risk Labs: VTE Related Lab Results Hgb 12.2 g/dL (12.2-16.2) 12/27/18 05:25 Hct 39.9 % (37.0-47.0) 12/27/18 05:25 Plt Count 305 K/mm3 (142-424) 12/27/18 05:25 BUN 24 mg/dL (7-18) H 12/27/18 05:25 Creatinine 2.04 mg/dL (0.55-1.02) H 12/27/18 05:25 Estimated Creat Clear 33 mL/min (50-200) 12/27/18 05:25 VTE Score: 2 - Prophylaxis VTE Prophylaxis Ordered?: Yes Types of VTE Prophylaxis: TEDS Knee High Location of Applied Device: Bilateral Lower Extremeties - VTE Diagnosis Confirmed Treatment or plan recommended: Continue Current Treatment
--- NOTE | 2018-12-27 15:28 | Progress Note ---
Internal Medicine - PN: Subj *Date: 12/27/18 *Time: 15:23 Interval history: The patient spiked a fever to 103 this afternoon. Her cardiac enzymes were elevated last night but the patient has not been symptomatic for any chest pain during her admission her hospitalization. Her EKG does not show acute changes. EKG is repeated at this time and cardiac enzymes are redrawn and are pending. ABG is also obtained and is pending. Dr. Galloway spoke to Dr. Jose Rae regarding the patient's cardiac status. Reviewing the data on the enzymes Dr. Rae felt that this is more related to her sepsis than actual cardiac issues. He suggested an echocardiogram. He also felt that she was still behind on her fluid balance and we should increase the IV fluids to 200 cc an hour. Her blood pressure remains in the 110/60 range. Her heart rate is 130 at the present time. She has no shortness of breath. Examination of her legs still show edema but perhaps less erythema and no drainage of the wounds. Her feet are somewhat cold. She asked drowsy but is easily awakened and responsive. F mitchell treated with Tylenol and with ibuprofen. The Zosyn dose was adjusted due to her creatinine which is gone up to above 2. Exam Vital signs and Labs for Last 24 Hours: Temp Pulse Resp BP Pulse Ox 103.1 F H 128 H 18 135/61 93 L 12/27/18 15:00 12/27/18 15:00 12/27/18 15:00 12/27/18 15:00 12/27/18 15:00 Laboratory Results - last 24 hr 12/26/18 13:00: Urine Color Yellow, Urine Appearance Clear, Urine pH 5.0, Ur Specific [place] 1.020, Urine Protein Negative, Urine Glucose (UA) Negative, Urine Ketones Negative, Urine Blood Negative, Urine Nitrate Negative, Urine Bilirubin Negative, Urine Urobilinogen 0.2, Ur Leukocyte Esterase Negative, Urine RBC None, Urine WBC Occasional, Ur Squamous Epith Cells Occasional, Urine Bacteria Trace 12/26/18 14:39: Total Counted 100, Neutrophils % (Manual) 85 H, Band Neutrophils % 7.0, Lymphocytes % (Manual) 5 L, Monocytes % (Manual) 2, Eosinophils % (Manual) 1, Platelet Estimate Normal, RBC Morphology Normal, Stomatocytes 1+ 12/26/18 14:39: Sodium 137, Potassium 4.0, Chloride 100, Carbon Dioxide 29, Anion Gap 12.0, BUN 17, Creatinine 1.20 H, Estimated Creat Clear 54, Estimated GFR 48 L, Est GFR ( Amer) 58 L, Glucose 118 H, Calcium 9.3, Total Bilirubin 0.7, AST 18, ALT 30, Alkaline Phosphatase 78, Total Protein 7.7, Albumin 3.1 L, Globulin 4.6 H, Albumin/Globulin Ratio 0.7 L 12/26/18 14:39: Lactate 2.9 H 12/26/18 14:39: Hemoglobin A1c 6.4 12/26/18 14:39: TSH 1.59 12/26/18 18:35: Lactate 4.1 H 12/26/18 21:15: Lactate 5.4 H 12/26/18 23:10: WBC 17.4 H D, RBC 4.70, Hgb 12.3, Hct 41.2, MCV 87.7, MCH 26.3 L , MCHC 30.0 L, RDW 13.6, Plt Count 319, MPV 7.7, Neut % (Auto) 95.2 H, Lymph % (Auto) 1.9 L, [place] % (Auto) 1.6 L, Eos % (Auto) 1.0, Baso % (Auto) 0.3, Neut # (Auto) 16.6 H, Lymph # (Auto) 0.3 L, [place] # (Auto) 0.3, Eos # (Auto) 0.2, Baso # (Auto) 0.1, Total Counted 100, Neutrophils % (Manual) 75, Band Neutrophils % 24.0 H, Lymphocytes % (Manual) 1 L, Platelet Estimate Normal, Hypochromasia 1+, Anisocytosis 1+ 12/26/18 23:10: Sodium 136, Potassium 3.7, Chloride 102, Carbon Dioxide 25, Anion Gap 12.7, BUN 21 H, Creatinine 2.01 H D, Estimated Creat Clear 33, Estimated GFR 26 L, Est GFR ( Amer) 32 L D, Glucose 154 H D, Calcium 8.3 L D, Total Creatine Kinase 462 H, CK-MB (CK-2) 15.6 H*, CK-MB (CK-2) Rel Index 3.4, Troponin I 0.61 H 12/27/18 05:25: WBC 20.2 H*, RBC 4.66, Hgb 12.2, Hct 39.9, MCV 85.5, MCH 26.3 L, MCHC 30.7 L, RDW 13.7, Plt Count 305, MPV 7.6, Neut % (Auto) 96.2 H, Lymph % (Auto) 1.3 L, [place] % (Auto) 1.4 L, Eos % (Auto) 0.8, Baso % (Auto) 0.4, Neut # (Auto) 19.4 H, Lymph # (Auto) 0.3 L, [place] # (Auto) 0.3, Eos # (Auto) 0.2, Baso # (Auto) 0.1 12/27/18 05:25: Sodium 134 L, Potassium 4.6 D, Chloride 101, Carbon Dioxide 24, Anion Gap 13.6, BUN 24 H, Creatinine 2.04 H, Estimated Creat Clear 33, Estimated GFR 26 L, Est GFR ( Amer) 31 L, Glucose 156 H, Calcium 8.0 L, Total Bilirubin 0.6, AST 37 D, ALT 40 D, Alkaline Phosphatase 57, Total Protein 6.2 L, Albumin 2.4 L D, Globulin 3.8 H, Albumin/Globulin Ratio 0.6 L I & O for Last 24 hours: Intake & Output 12/25/18 12/26/18 12/27/18 12/28/18 11:59 11:59 11:59 11:59 Intake Total 2346.875 / 2346.875 Output Total 1125 / 1125 Balance 1221.875 / 1221.875 Weight 336 lb 4 oz Microbiology Reports for the Last 24 Hours: Microbiology 12/26/18 12:52 Blood Blood Culture - Preliminary 12/26/18 13:30 Blood Blood Culture - Preliminary Gram Positive Cocci - Constitutional Comments: She says she is "tired." But she does respond to questioning and becomes more alert. - *Routine Respiratory Exam Present: CTA bilaterally - *Routine Cardiovascular Exam Present: tachycardia - *Routine Abdominal Exam Present: soft. Absent: tenderness - *Routine Extremities Exam Present: edema Comments: There may be less erythema. The left leg is more involved than the right. The right leg is pretty good with less erythema and less swelling. Only a few excoriations. Feet are slightly cyanotic and cool. Assessment and Plan (1) Sepsis Current visit: Yes Status: Acute Qualifiers: Sepsis type: sepsis due to unspecified organism Qualified Code(s): A41.9 - Sepsis, unspecified organism Category: Medical Code(s): A41.9 - Sepsis, unspecified organism (2) Stasis dermatitis of both legs Current visit: Yes Status: Acute Category: Medical Code(s): I87.2 - Venous insufficiency (chronic) (peripheral) (3) Cellulitis of left lower extremity Current visit: Yes Status: Acute Category: Medical Code(s): L03.116 - Cellulitis of left lower limb (4) Hypotension Current visit: Yes Status: Acute Category: Medical Code(s): I95.9 - Hypotension, unspecified (5) Elevated lactic acid level Current visit: Yes Status: Acute Category: Medical Code(s): R79.89 - Other specified abnormal findings of blood chemistry (6) Morbid obesity Current visit: Yes Status: Acute Category: Medical Code(s): E66.01 - Morbid (severe) obesity due to excess calories (7) Elevation of cardiac enzymes Current visit: Yes Status: Acute Category: Medical Code(s): R74.8 - Abnormal levels of other serum enzymes (8) Renal failure Current visit: Yes Status: Acute Category: Medical Code(s): N19 - Unspecified kidney failure
--- NOTE | 2018-12-27 18:40 | Cardiology Report ---
[place] echo doppler complete PROCEDURE: INDICATIONS FOR THE TEST: Chest pain COPD Heart Murmur Tobacco Smoking Palpitations Fatigue Syncope Edema Hypertension Diabetes MellitusX Rheumatic Fever SOBXDOEXObesityXHyperlipidemia Family History HD Additional History FEVER,SEPSIS,ELEVATED ENZYMES LIMITED EXAM SECONDARY TO OBESITY PATIENT INFORMATION HEIGHT: 67 WEIGHT:336 GENDER: Female B/P:105/51 2-D/M-MODE INTERPRETATION: 2-D MEASUREMENTS OBSERVED VALUES IN CMS Right Ventricular Dimension (RVDd) 1.9 Interventricular Septum (Thickness)(IVsd) 1.4 Left Ventricular Internal Dimensions(LVIDd) 4.3 Left Ventricular Posterior Wall (Thickness)(LVPWd) 1.1 Aortic Root 2.6 Aortic Cusp Separation 1.3 Left Atrial Dimensions (LAD) 4.4 2D 1. Technically very difficult study because of the patient's factor and poor acoustic windows, endocardial surface as well as the valvular structures are poorly visualized 2. The left atrium is mildly enlarged, left ventricle is normal size, mild concentric left ventricular hypertrophy, hyperdynamic left ventricular systolic function, visually estimated ejection fraction 65% with no obvious regional wall motion abnormality, endocardial surfaces are poorly visualized. 3. The right atrium and right ventricle are mildly enlarged, with normal contractility. 4. The aortic valve is thickened and calcified with restriction the leaflet mobility. 5. There is dense mitral annular calcification present, which extends and both anterior and posterior mitral leaflet. 6. The tricuspid valve and pulmonic valve is poorly visualized. 7. No significant pericardial effusion noted. DOPPLER INTERROGATION: 1. The maximum aortic out flow velocity recorded study is 3.4 m/s, resulting in a mean gradient across aortic valve of 25 mmHg, valve area is 1.5 sq cm represents mild aortic stenosis, there is no aortic insufficiency. 2. The mitral inflow velocities increased to 1.8 m/s, mitral valve area is 2.7 sq cm does not represent any significant mitral inflow obstruction. There is no significant mitral regurgitation seen. 3. There is mild tricuspid regurgitation noted, tricuspid regurgitation jet velocity is inadequate for calculation of the right ventricular systolic pressure. 4. Diastolic parameters are inconclusive. Inferior vena cava is not well visualized. CONCLUSION: 1. Technically very difficult study because of the patient's factor and poor acoustic windows, endocardial surfaces as well as the valvular structures are poorly visualized. 2. Biatrial enlargement, normal left ventricular size, mild concentric left ventricular hypertrophy, visually estimated ejection fraction of 65% with no regional wall motion abnormality, diastolic parameters are inconclusive. 3. Mildly enlarged right ventricle with normal contractility. 4. Thickened and calcified aortic valve with mean gradient across valve of 25 mmHg, valve area 1.5 sq cm represents mild aortic stenosis, there is no aortic insufficiency. 4. Abnormal mitral valve as described above. Dense mitral annular calcification which extends and both anterior and posterior mitral leaflet, the mitral inflow velocity is increased, however the valve area is 2.7 sq cm by pressure half time does not represent any significant mitral inflow obstruction, there is no significant mitral regurgitation seen. 5. Mild tricuspid regurgitation, tricuspid regurgitation jet velocity is inadequate for calculation of the right ventricular systolic pressure, diastolic parameters are inconclusive. Inferior vena cava is not well visualized. 6. If clinically indicated transesophageal echocardiogram has better sensitivity in detecting the valvular regurgitation.
--- NOTE | 2018-12-27 18:49 | Consult Report ---
*Admission Date: 12/26/18 *Reason for consult:: Triple-lumen catheter *History of present illness: This is a 48-year-old female being treated for sepsis. She has an adequate/tenuous venous access and the surgical service has been consulted for central line placement. Review of Systems - *Cardiovascular Denies chest pain - *Neurologic Reports dizziness, Reports weakness, Denies abnormal hearing [facility] History Medical History: Reports:: Diabetes Mellitus Type 2, Hypertension Denies:: Cancer, Diabetes Mellitus Type 1, MRSA *Have you ever received a pneumonia vaccine?: No *Have you received a flu vaccine this season?: No Other Medical History: Reports: Hypothyroidism Laterality Cases: Bilateral: Tonsillectomy Other Surgeries: Yes: Tubal Ligation Amputation: No Fractures: No - *Social History Educational Level: Completed High School Smoking Status: Former smoker (Smoked for 20 years. Stopped 10 years ago) Tobacco Type: cigarettes Alcohol Intake: never Alcohol Intake Frequency:: holidays/special occasions only Substance Use Type: denies use *Occupational Status:: other Housing: house Household Members: children (2 sons aged 20 and 21) *Travel in the last 8 weeks: None - Psychiatric History Expresses thoughts of harming self/others: None Suicide Plan Description: No Plan Family Hx:: Asthma, Coronary Artery Disease, Diabetes, Heart Attack, Hyperlipi demia, Hypertension, Tuberculosis Para: 2 Meds Home Medications Medication Instructions Recorded Confirmed Type Levocetirizine Dihydrochloride 5 mg PO DAILY 12/27/18 12/27/18 History [Xyzal] Allergies Allergy/AdvReac Type Severity Reaction Status Date / Time No Known Allergies Allergy Verified 12/26/18 12:54 Exam Vital signs and Labs for Last 24 Hours: Temp Pulse Resp BP Pulse Ox 99.0 F 110 H 17 113/50 L 95 12/27/18 16:00 12/27/18 18:00 12/27/18 18:00 12/27/18 18:00 12/27/18 18:00 Laboratory Results - last 24 hr 12/26/18 13:00: Urine Color Yellow, Urine Appearance Clear, Urine pH 5.0, Ur Specific [place] 1.020, Urine Protein Negative, Urine Glucose (UA) Negative, Urine Ketones Negative, Urine Blood Negative, Urine Nitrate Negative, Urine Bilirubin Negative, Urine Urobilinogen 0.2, Ur Leukocyte Esterase Negative, Urine RBC None, Urine WBC Occasional, Ur Squamous Epith Cells Occasional, Urine Bacteria Trace 12/26/18 14:39: Hemoglobin A1c 6.4 12/26/18 14:39: TSH 1.59 12/26/18 18:35: Lactate 4.1 H 12/26/18 21:15: Lactate 5.4 H 12/26/18 23:10: WBC 17.4 H D, RBC 4.70, Hgb 12.3, Hct 41.2, MCV 87.7, MCH 26.3 L , MCHC 30.0 L, RDW 13.6, Plt Count 319, MPV 7.7, Neut % (Auto) 95.2 H, Lymph % (Auto) 1.9 L, [place] % (Auto) 1.6 L, Eos % (Auto) 1.0, Baso % (Auto) 0.3, Neut # (Auto) 16.6 H, Lymph # (Auto) 0.3 L, [place] # (Auto) 0.3, Eos # (Auto) 0.2, Baso # (Auto) 0.1, Total Counted 100, Neutrophils % (Manual) 75, Band Neutrophils % 24.0 H, Lymphocytes % (Manual) 1 L, Platelet Estimate Normal, Hypochromasia 1+, Anisocytosis 1+ 12/26/18 23:10: Sodium 136, Potassium 3.7, Chloride 102, Carbon Dioxide 25, Anion Gap 12.7, BUN 21 H, Creatinine 2.01 H D, Estimated Creat Clear 33, Estimated GFR 26 L, Est GFR ( Amer) 32 L D, Glucose 154 H D, Calcium 8.3 L D, Total Creatine Kinase 462 H, CK-MB (CK-2) 15.6 H*, CK-MB (CK-2) Rel Index 3.4, Troponin I 0.61 H 12/27/18 05:25: WBC 20.2 H*, RBC 4.66, Hgb 12.2, Hct 39.9, MCV 85.5, MCH 26.3 L, MCHC 30.7 L, RDW 13.7, Plt Count 305, MPV 7.6, Neut % (Auto) 96.2 H, Lymph % (Auto) 1.3 L, [place] % (Auto) 1.4 L, Eos % (Auto) 0.8, Baso % (Auto) 0.4, Neut # ( Auto) 19.4 H, Lymph # (Auto) 0.3 L, [place] # (Auto) 0.3, Eos # (Auto) 0.2, Baso # (Auto) 0.1 12/27/18 05:25: Sodium 134 L, Potassium 4.6 D, Chloride 101, Carbon Dioxide 24, Anion Gap 13.6, BUN 24 H, Creatinine 2.04 H, Estimated Creat Clear 33, Estimat ed GFR 26 L, Est GFR ( Amer) 31 L, Glucose 156 H, Calcium 8.0 L, Total Bilirubin 0.6, AST 37 D, ALT 40 D, Alkaline Phosphatase 57, Total Protein 6.2 L, Albumin 2.4 L D, Globulin 3.8 H, Albumin/Globulin Ratio 0.6 L 12/27/18 14:44: POC Glucose 114 H 12/27/18 16:00: Total Creatine Kinase 468 H, CK-MB (CK-2) 2.7 D, CK-MB (CK-2) Rel Index 0.6, Troponin I 0.96 H 12/27/18 16:00: B-Natriuretic Peptide 125 H I & O for Last 24 hours: Intake & Output 12/25/18 12/26/18 12/27/18 12/28/18 11:59 11:59 11:59 11:59 Intake Total 2826.875 / 2826.875 Output Total 1125 / 1125 600 / 600 Balance 1701.875 / 1701.875 -600 / -600 Weight 336 lb 4 oz Microbiology Reports for the Last 24 Hours: Microbiology 12/26/18 12:52 Blood Blood Culture - Preliminary 12/26/18 13:30 Blood Blood Culture - Preliminary Gram Positive Cocci - Constitutional no acute distress - *Routine Cardiovascular Exam Present: tachycardia Results - Labs 12/27/18 05:25 12/27/18 05:25 Laboratory Results - last 24 hr 12/26/18 13:00: Urine Color Yellow, Urine Appearance Clear, Urine pH 5.0, Ur Specific [place] 1.020, Urine Protein Negative, Urine Glucose (UA) Negative, Urine Ketones Negative, Urine Blood Negative, Urine Nitrate Negative, Urine Bilirubin Negative, Urine Urobilinogen 0.2, Ur Leukocyte Esterase Negative, Urine RBC None, Urine WBC Occasional, Ur Squamous Epith Cells Occasional, Urine Bacteria Trace 12/26/18 14:39: Hemoglobin A1c 6.4 12/26/18 14:39: TSH 1.59 12/26/18 18:35: Lactate 4.1 H 12/26/18 21:15: Lactate 5.4 H 12/26/18 23:10: WBC 17.4 H D, RBC 4.70, Hgb 12.3, Hct 41.2, MCV 87.7, MCH 26.3 L , MCHC 30.0 L, RDW 13.6, Plt Count 319, MPV 7.7, Neut % (Auto) 95.2 H, Lymph % (Auto) 1.9 L, [place] % (Auto) 1.6 L, Eos % (Auto) 1.0, Baso % (Auto) 0.3, Neut # (Auto) 16.6 H, Lymph # (Auto) 0.3 L, [place] # (Auto) 0.3, Eos # (Auto) 0.2, Baso # (Auto) 0.1, Total Counted 100, Neutrophils % (Manual) 75, Band Neutrophils % 24.0 H, Lymphocytes % (Manual) 1 L, Platelet Estimate Normal, Hypochromasia 1+, Anisocytosis 1+ 12/26/18 23:10: Sodium 136, Potassium 3.7, Chloride 102, Carbon Dioxide 25, Anion Gap 12.7, BUN 21 H, Creatinine 2.01 H D, Estimated Creat Clear 33, Estimated GFR 26 L, Est GFR ( Amer) 32 L D, Glucose 154 H D, Calcium 8.3 L D, Total Creatine Kinase 462 H, CK-MB (CK-2) 15.6 H*, CK-MB (CK-2) Rel Index 3.4, Troponin I 0.61 H 12/27/18 05:25: WBC 20.2 H*, RBC 4.66, Hgb 12.2, Hct 39.9, MCV 85.5, MCH 26.3 L, MCHC 30.7 L, RDW 13.7, Plt Count 305, MPV 7.6, Neut % (Auto) 96.2 H, Lymph % (Auto) 1.3 L, [place] % (Auto) 1.4 L, Eos % (Auto) 0.8, Baso % (Auto) 0.4, Neut # (Auto) 19.4 H, Lymph # (Auto) 0.3 L, [place] # (Auto) 0.3, Eos # (Auto) 0.2, Baso # (Auto) 0.1 12/27/18 05:25: Sodium 134 L, Potassium 4.6 D, Chloride 101, Carbon Dioxide 24, Anion Gap 13.6, BUN 24 H, Creatinine 2.04 H, Estimated Creat Clear 33, Estimated GFR 26 L, Est GFR ( Amer) 31 L, Glucose 156 H, Calcium 8.0 L, Total Bilirubin 0.6, AST 37 D, ALT 40 D, Alkaline Phosphatase 57, Total Protein 6.2 L, Albumin 2.4 L D, Globulin 3.8 H, Albumin/Globulin Ratio 0.6 L 12/27/18 14:44: POC Glucose 114 H 12/27/18 16:00: Total Creatine Kinase 468 H, CK-MB (CK-2) 2.7 D, CK-MB (CK-2) Rel Index 0.6, Troponin I 0.96 H 12/27/18 16:00: B-Natriuretic Peptide 125 H Assessment and Plan (1) Sepsis Current visit: Yes Status: Acute Qualifiers: Sepsis type: sepsis due to unspecified organism Qualified Code(s): A41.9 - Sepsis, unspecified organism Category: Medical Code(s): A41.9 - Sepsis, unspecified organism (2) Stasis dermatitis of both legs Current visit: Yes Status: Acute Category: Medical Code(s): I87.2 - Venous insufficiency (chronic) (peripheral) (3) Cellulitis of left lower extremity Current visit: Yes Status: Acute Category: Medical Code(s): L03.116 - Cellulitis of left lower limb (4) Hypotension Current visit: Yes Status: Acute Category: Medical Code(s): I95.9 - Hypotension, unspecified (5) Elevated lactic acid level Current visit: Yes Status: Acute Category: Medical Code(s): R79.89 - Other specified abnormal findings of blood chemistry (6) Morbid obesity Current visit: Yes Status: Acute Category: Medical Code(s): E66.01 - Morbid (severe) obesity due to excess calories (7) Elevation of cardiac enzymes Current visit: Yes Status: Acute Category: Medical Code(s): R74.8 - Abnormal levels of other serum enzymes (8) Renal failure Current visit: Yes Status: Acute Category: Medical Code(s): N19 - Unspecified kidney failure (9) Poor venous access Current visit: Yes Status: Acute Category: Medical Code(s): I87.8 - Other specified disorders of veins Central line placement I have discussed the risks and benefits including, but not limited to: Bleeding Infection Damage to surrounding tissue Pneumothorax Inherent risks of sedation The patient agrees to proceed.
--- NOTE | 2018-12-27 19:42 | Procedure Note ---
[facility] Procedure Note Procedure Note:: Procedure: Central line (triple-lumen catheter placed by way of left internal jugular access) Prep: Chlorhexidine Indications: Sepsis/inadequate venous access Anesthesia: 1% lidocaine Description: After informed consent was obtained the patient was placed in a supine position. Her left chest and neck were prepped and draped in a sterile fashion. She was then transferred to a Trendelenburg position. After infiltration with local anesthetic a small needle was utilized to "fine" the left internal jugular vein. Multiple attempts revealed no sign of aspirated blood and the decision was made to attempt a left-sided subclavian vein access. After infiltration local anesthetic a large-bore needle was placed in position to attempt a subclavian access. Secondary to the patient's body habitus and general lack of tolerance multiple attempts were not used and no aspiration of blood was noted. A "lower stick site" was then attempted for internal jugular access. This was very difficult; however, after multiple attempts aspiration of blood was noted. A large-bore needle was then utilized to enter the internal jugular vein. A guidewire was placed in position. The dilator was then placed in position. The dilator was removed and an 8 [place] triple-lumen catheter was placed over the guidewire. Obvious venous (non-arterial) flow was noted. All ports flushed and the catheter was secured at 17 cm. Sterile dressings were applied and the patient was transferred to a "seated position". Chest x-ray is pending. Complications: No immediate Estimated blood loss: 5 mL
[2018-12-27 20:20] LABS: ABG Base Excess -3.6 mmol/L (-2.4-2.3); ABG Oxygen Saturation 72 % (90-100); ABG PCO2 48.9 mmhg (35.0-45.0); ABG PH 7.29 mmol/L (7.35-7.45); ABG TCO2 24.5 mmhg (23-27)
[2018-12-27 20:21] LABS: ABG PO2 39.4 mmhg (80-100); Allen's Test Y; Oxygen 1 %
--- NOTE | 2018-12-27 21:23 | Progress Note ---
Internal Medicine - PN: Subj *Date: 12/27/18 *Time: 21:16 Interval history: IV fluids have been aggressively administered after consultation with Dr. Rae. There seems to be some improvement. Follow-up cardiac enzymes showed showed elevation but not progression. BNP was only 125. EKG did not show acute changes. Clinically she looks much better this evening and feels better. She has however developed erythema up the medial thigh on the left. This is of great concern. Blood pressure is 110/60 pulse is 100-116. Preliminary results on echocardiogram shows 65% ejection fraction with a hyperdynamic left ventricle. She has trace of mitral valve and tricuspid regurgitation. "Bright echodensities on both MV leaflets" "bright echodensity on AV cusp." Exam Vital signs and Labs for Last 24 Hours: Temp Pulse Resp BP Pulse Ox 98.4 F 107 H 16 109/60 L 96 12/27/18 20:00 12/27/18 20:00 12/27/18 20:00 12/27/18 20:00 12/27/18 20:00 Laboratory Results - last 24 hr 12/26/18 13:00: Urine Color Yellow, Urine Appearance Clear, Urine pH 5.0, Ur Specific [place] 1.020, Urine Protein Negative, Urine Glucose (UA) Negative, Urine Ketones Negative, Urine Blood Negative, Urine Nitrate Negative, Urine Bilirubin Negative, Urine Urobilinogen 0.2, Ur Leukocyte Esterase Negative, Urine RBC None, Urine WBC Occasional, Ur Squamous Epith Cells Occasional, Urine Bacteria Trace 12/26/18 21:15: Lactate 5.4 H 12/26/18 23:10: WBC 17.4 H D, RBC 4.70, Hgb 12.3, Hct 41.2, MCV 87.7, MCH 26.3 L , MCHC 30.0 L, RDW 13.6, Plt Count 319, MPV 7.7, Neut % (Auto) 95.2 H, Lymph % (Auto) 1.9 L, [place] % (Auto) 1.6 L, Eos % (Auto) 1.0, Baso % (Auto) 0.3, Neut # (Auto) 16.6 H, Lymph # (Auto) 0.3 L, [place] # (Auto) 0.3, Eos # (Auto) 0.2, Baso # (Auto) 0.1, Total Counted 100, Neutrophils % (Manual) 75, Band Neutrophils % 24.0 H, Lymphocytes % (Manual) 1 L, Platelet Estimate Normal, Hypochromasia 1+, Anisocytosis 1+ 12/26/18 23:10: Sodium 136, Potassium 3.7, Chloride 102, Carbon Dioxide 25, Anion Gap 12.7, BUN 21 H, Creatinine 2.01 H D, Estimated Creat Clear 33, Estimated GFR 26 L, Est GFR ( Amer) 32 L D, Glucose 154 H D, Calcium 8.3 L D, Total Creatine Kinase 462 H, CK-MB (CK-2) 15.6 H*, CK-MB (CK-2) Rel Index 3.4, Troponin I 0.61 H 12/27/18 05:25: WBC 20.2 H*, RBC 4.66, Hgb 12.2, Hct 39.9, MCV 85.5, MCH 26.3 L, MCHC 30.7 L, RDW 13.7, Plt Count 305, MPV 7.6, Neut % (Auto) 96.2 H, Lymph % (Auto) 1.3 L, [place] % (Auto) 1.4 L, Eos % (Auto) 0.8, Baso % (Auto) 0.4, Neut # (Auto) 19.4 H, Lymph # (Auto) 0.3 L, [place] # (Auto) 0.3, Eos # (Auto) 0.2, Baso # (Auto) 0.1 12/27/18 05:25: Sodium 134 L, Potassium 4.6 D, Chloride 101, Carbon Dioxide 24, Anion Gap 13.6, BUN 24 H, Creatinine 2.04 H, Estimated Creat Clear 33, Estimated GFR 26 L, Est GFR ( Amer) 31 L, Glucose 156 H, Calcium 8.0 L, Total Bilirubin 0.6, AST 37 D, ALT 40 D, Alkaline Phosphatase 57, Total Protein 6.2 L, Albumin 2.4 L D, Globulin 3.8 H, Albumin/Globulin Ratio 0.6 L 12/27/18 14:44: POC Glucose 114 H 12/27/18 16:00: Total Creatine Kinase 468 H, CK-MB (CK-2) 2.7 D, CK-MB (CK-2) Rel Index 0.6, Troponin I 0.96 H 12/27/18 16:00: B-Natriuretic Peptide 125 H 12/27/18 20:10: Lactate 1.4 12/27/18 20:19: Specimen Source Cl, O2 % 1, ABG pH 7.29 L, ABG pCO2 48.9 H, ABG pO2 39.4 L, ABG HCO3 23.0, ABG Total CO2 24.5, ABG O2 Saturation 72 L*, ABG Base Excess -3.6 L, Yash Test Y I & O for Last 24 hours: Intake & Output 12/25/18 12/26/18 12/27/18 12/28/18 11:59 11:59 11:59 11:59 Intake Total 2826.875 / 2826.875 Output Total 1125 / 1125 600 / 600 Balance 1701.875 / 1701.875 -600 / -600 Weight 336 lb 4 oz Microbiology Reports for the Last 24 Hours: Microbiology 12/26/18 12:52 Blood Blood Culture - Preliminary 12/26/18 13:30 Blood Blood Culture - Preliminary Gram Positive Cocci - Constitutional no acute distress Comments: Sitting up. Went to the toilet. Color looks better. - *Routine Respiratory Exam Absent: respiratory distress - *Routine Cardiovascular Exam Present: tachycardia - *Routine Extremities Exam Present: edema Comments: There is erythema extending up the medial aspect of the left thigh. - *Routine Neurological Exam Present: alert, oriented X3 Assessment and Plan (1) Sepsis Current visit: Yes Status: Acute Qualifiers: Sepsis type: sepsis due to unspecified organism Qualified Code(s): A41.9 - Sepsis, unspecified organism Category: Medical Code(s): A41.9 - Sepsis, unspecified organism (2) Stasis dermatitis of both legs Current visit: Yes Status: Acute Category: Medical Code(s): I87.2 - Venous insufficiency (chronic) (peripheral) (3) Cellulitis of left lower extremity Current visit: Yes Status: Acute Category: Medical Code(s): L03.116 - Cellulitis of left lower limb (4) Hypotension Current visit: Yes Status: Acute Category: Medical Code(s): I95.9 - Hypotension, unspecified (5) Elevated lactic acid level Current visit: Yes Status: Acute Category: Medical Code(s): R79.89 - Other specified abnormal findings of blood chemistry (6) Morbid obesity Current visit: Yes Status: Acute Category: Medical Code(s): E66.01 - Morbid (severe) obesity due to excess calories (7) Elevation of cardiac enzymes Current visit: Yes Status: Acute Category: Medical Code(s): R74.8 - Abnormal levels of other serum enzymes (8) Renal failure Current visit: Yes Status: Acute Category: Medical Code(s): N19 - Unspecified kidney failure (9) Poor venous access Current visit: Yes Status: Acute Category: Medical Code(s): I87.8 - Other specified disorders of veins
[2018-12-28 05:38] LABS: Basophils % 0.3 % (0.1-2.0); Eosinophils # 0.1 K/mm3 (0.0-0.4); Eosinophils % 0.5 % (0.1-12.0); Hematocrit 34.7 % (37.0-47.0); Hemoglobin 10.8 g/dL (12.2-16.2); Lymphocytes # 0.4 K/mm3 (0.7-4.5); Lymphocytes % 2.8 % (10-50); Mean Corpuscular HGB Conc 31.2 g/dL (31.8-35.4); Mean Corpuscular Volume 86.8 fl (81-99); Monocytes # 0.3 K/mm3 (0.1-1.0); Monocytes % 2.1 % (1.7-9.3); Neutrophils # 11.8 K/mm3 (1.8-7.8); Neutrophils % 94.3 % (37.0-80.0); Platelet Count 174 K/mm3 (142-424); Red Blood Count 3.99 M/mm3 (4.20-5.40); Red Cell Distribution Width 14.2 % (11.5-17.5); White Blood Count 12.5 K/mm3 (4.8-10.8)
[2018-12-28 05:50] LABS: Anion Gap 15.2 mEq/L (5-15); Calcium 7.7 mg/dL (8.5-10.1)
[2018-12-28 05:53] LABS: Lymphocytes % 2 % (10-50); Neutrophils % 83 % (42-76); Total Cells Counted 100
[2018-12-28 05:54] LABS: Hypochromasia 1+
--- NOTE | 2018-12-28 12:20 | Progress Note ---
Internal Medicine - PN: Subj *Date: 12/28/18 *Time: 12:17 Interval history: She is better this morning. I saw her at 9 AM. She had rested through the night. A K pad had been applied to the left inner thigh where there had developed erythema. The erythema is lessened this morning. She looks generally better including less pallor to the lips. Her lab work is improved. Exam Vital signs and Labs for Last 24 Hours: Temp Pulse Resp BP Pulse Ox 98.0 F 96 H 16 112/67 99 12/28/18 10:00 12/28/18 12:00 12/28/18 12:00 12/28/18 12:00 12/28/18 12:00 Laboratory Results - last 24 hr 12/26/18 13:00: Urine Color Yellow, Urine Appearance Clear, Urine pH 5.0, Ur Specific [place] 1.020, Urine Protein Negative, Urine Glucose (UA) Negative, Urine Ketones Negative, Urine Blood Negative, Urine Nitrate Negative, Urine Bilirubin Negative, Urine Urobilinogen 0.2, Ur Leukocyte Esterase Negative, Urine RBC None, Urine WBC Occasional, Ur Squamous Epith Cells Occasional, Urine Bacteria Trace 12/27/18 14:44: POC Glucose 114 H 12/27/18 16:00: Total Creatine Kinase 468 H, CK-MB (CK-2) 2.7 D, CK-MB (CK-2) Rel Index 0.6, Troponin I 0.96 H 12/27/18 16:00: B-Natriuretic Peptide 125 H 12/27/18 20:10: Lactate 1.4 12/27/18 20:19: Specimen Source Cl, O2 % 1, ABG pH 7.29 L, ABG pCO2 48.9 H, ABG pO2 39.4 L, ABG HCO3 23.0, ABG Total CO2 24.5, ABG O2 Saturation 72 L*, ABG Base Excess -3.6 L, Yash Test Y 12/28/18 05:30: WBC 12.5 H D, RBC 3.99 L, Hgb 10.8 L, Hct 34.7 L, MCV 86.8, MCH 27.1, MCHC 31.2 L, RDW 14.2, Plt Count 174 D, MPV 8.0, Neut % (Auto) 94.3 H, Lymph % (Auto) 2.8 L, [place] % (Auto) 2.1, Eos % (Auto) 0.5, Baso % (Auto) 0.3, Neut # (Auto) 11.8 H, Lymph # (Auto) 0.4 L, [place] # (Auto) 0.3, Eos # (Auto) 0.1, Baso # (Auto) 0.0, Total Counted 100, Neutrophils % (Manual) 83 H, Band Neutrophils % 15.0 H, Lymphocytes % (Manual) 2 L, Platelet Estimate Normal, Hypochromasia 1+ 12/28/18 05:30: Sodium 136, Potassium 4.2, Chloride 103, Carbon Dioxide 22, Anion Gap 15.2 H, BUN 31 H D, Creatinine 2.01 H, Estimated Creat Clear 33, Estimated GFR 26 L, Est GFR ( Amer) 32 L, Glucose 130 H, Calcium 7.7 L I & O for Last 24 hours: Intake & Output 12/26/18 12/27/18 12/28/18 12/29/18 11:59 11:59 11:59 11:59 Intake Total 2826.875 / 2826.875 5647 / 5647 Output Total 1125 / 1125 1150 / 1150 Balance 1701.875 / 4544.252 7372 / 4497 Weight 336 lb 4 oz 336 lb 3.984 oz Microbiology Reports for the Last 24 Hours: Microbiology 12/26/18 12:52 Blood Blood Culture - Preliminary Gram Positive Cocci 12/26/18 13:30 Blood Blood Culture - Final Strep dysgalactiae/canis - Constitutional no acute distress - *Routine HEENT Exam ENT: Present: mucous membranes moist - *Routine Neck Exam Present: supple - *Routine Respiratory Exam Present: CTA bilaterally. Absent: respiratory distress - *Routine Cardiovascular Exam Present: RRR (100) - *Routine Abdominal Exam Present: soft (Obese). Absent: tenderness - *Routine Extremities Exam Present: edema (4+ with stasis changes. The cellulitis seems to be mainly in the left leg.) - *Routine Neurological Exam Present: alert, oriented X3. Absent: altered mental status Assessment and Plan (1) Sepsis Current visit: Yes Status: Acute Qualifiers: Sepsis type: sepsis due to unspecified organism Qualified Code(s): A41.9 - Sepsis, unspecified organism Category: Medical Code(s): A41.9 - Sepsis, unspecified organism (2) Stasis dermatitis of both legs Current visit: Yes Status: Acute Category: Medical Code(s): I87.2 - Venous insufficiency (chronic) (peripheral) (3) Cellulitis of left lower extremity Current visit: Yes Status: Acute Category: Medical Code(s): L03.116 - Cellulitis of left lower limb (4) Hypotension Current visit: Yes Status: Acute Category: Medical Code(s): I95.9 - Hypotension, unspecified (5) Elevated lactic acid level Current visit: Yes Status: Acute Category: Medical Code(s): R79.89 - Other specified abnormal findings of blood chemistry (6) Morbid obesity Current visit: Yes Status: Acute Category: Medical Code(s): E66.01 - Morbid (severe) obesity due to excess calories (7) Elevation of cardiac enzymes Current visit: Yes Status: Acute Category: Medical Code(s): R74.8 - Abnormal levels of other serum enzymes (8) Renal failure Current visit: Yes Status: Acute Category: Medical Code(s): N19 - Unspecified kidney failure (9) Poor venous access Current visit: Yes Status: Acute Category: Medical Code(s): I87.8 - Other specified disorders of veins - Assessment and plan all Dx Assessment and Plan for all problems:: She seems to be responding to the present regimen. Fluids will be decreased to 175 cc an hour.
[2018-12-29 06:34] LABS: Anion Gap 12.9 mEq/L (5-15); Basophils % 0.4 % (0.1-2.0); Calcium 8.1 mg/dL (8.5-10.1); Eosinophils % 0.3 % (0.1-12.0); Hematocrit 32.8 % (37.0-47.0); Lymphocytes # 0.9 K/mm3 (0.7-4.5); Lymphocytes % 11.1 % (10-50); Mean Corpuscular HGB Conc 30.4 g/dL (31.8-35.4); Mean Platelet Volume 9.4 fl (7.4-10.4); Monocytes # 0.3 K/mm3 (0.1-1.0); Monocytes % 3.3 % (1.7-9.3); Neutrophils # 6.7 K/mm3 (1.8-7.8); Neutrophils % 84.9 % (37.0-80.0); Platelet Count 125 K/mm3 (142-424); Red Blood Count 3.78 M/mm3 (4.20-5.40); Red Cell Distribution Width 14.3 % (11.5-17.5); White Blood Count 7.9 K/mm3 (4.8-10.8)
--- NOTE | 2018-12-29 08:50 | Progress Note ---
Internal Medicine - PN: Subj *Date: 12/29/18 *Time: 09:01 Interval history: She is better. She is able to sleep when sitting up in a chair. She uses CPAP at home and gets short of breath upon awakening because she does not have her CPAP. She has not been eating and drinking. She has no appetite and smells make her nauseated. She is voiding since Hollis catheter has been removed. She has had diarrhea stools. She denies any pain and currently is not short of breath. Exam Vital signs and Labs for Last 24 Hours: Temp Pulse Resp BP Pulse Ox 98.0 F 89 20 120/72 98 12/29/18 07:56 12/29/18 08:00 12/29/18 08:00 12/29/18 08:00 12/29/18 08:00 Laboratory Results - last 24 hr 12/28/18 17:27: Stl Aeromonas (PCR) Not detected, Stl C. cayetanensis PCR Not detected, Stool Rotavirus (PCR) Not detected, Stl Adenov F 40/41 PCR Not detected, Stool Astrovirus (PCR) Not detected, Stool Campylobacter PCR Not detected, Stl C.difficile Tox PCR Not detected, Stool Cryptosporidium PCR Not detected, Stl E.coli Shiga Tox PCR Not detected, Stool E coli O157 PCR Not detected, Stl Enterotoxigenic E PCR Not detected, Stool EPEC (PCR) Not detected, Stool EAEC (PCR) Not detected, Stl E. histolytica PCR Not detected, Stool Giardia Lamblia PCR Not detected, Stool Salmonella PCR Not detected, Stool Sapovirus (PCR) Not detected, Stl P. shigelloides PCR Not detected, Stl Shigella/EIEC PCR Not detected, St Y.enterocolitica PCR Not detected, Stool Vibrio (PCR) Not detected, Stl Vibrio cholerae PCR Not detected, Stl Norovirus GI/GII PCR Not detected 12/29/18 06:10: WBC 7.9 D, RBC 3.78 L, Hgb 10.0 L, Hct 32.8 L, MCV 87.0, MCH 26.4 L, MCHC 30.4 L, RDW 14.3, Plt Count 125 L D, MPV 9.4, Neut % (Auto) 84.9 H, Lymph % (Auto) 11.1, [place] % (Auto) 3.3, Eos % (Auto) 0.3, Baso % (Auto) 0.4, Neut # (Auto) 6.7, Lymph # (Auto) 0.9, [place] # (Auto) 0.3, Eos # (Auto) 0.0, Baso # (Auto) 0.0 12/29/18 06:10: Sodium 138, Potassium 3.9, Chloride 106, Carbon Dioxide 23, Anion Gap 12.9, BUN 22 H D, Creatinine 1.47 H D, Estimated Creat Clear 44, Estimated GFR 38 L, Est GFR ( Amer) 46 L D, Glucose 105, Calcium 8.1 L I & O for Last 24 hours: Intake & Output 12/26/18 12/27/18 12/28/18 12/29/18 11:59 11:59 11:59 11:59 Intake Total 2826.875 / 2826.875 5647 / 5647 6561 / 6561 Output Total 1125 / 1125 1150 / 1150 1600 / 1600 Balance 1701.875 / 6624.181 3154 / 4497 4961 / 4961 Weight 336 lb 4 oz 336 lb 3.984 oz 356 lb 4 oz Microbiology Reports for the Last 24 Hours: Microbiology 12/26/18 12:52 Blood Blood Culture - Preliminary Gram Positive Cocci 12/26/18 13:30 Blood Blood Culture - Final Strep dysgalactiae/canis Radiology Reports for the Last 24 Hours: 12/27/2018 chest x-ray - Constitutional no acute distress Comments: Appears comfortable sitting up in recliner at bedside. - *Routine Respiratory Exam Present: CTA bilaterally (Anteriorly and posteriorly) - *Routine Cardiovascular Exam Present: RRR Comments: After showing sinus tach. - *Routine Abdominal Exam Present: normoactive bowel sounds. Absent: tenderness Comments: Obese - *Routine Extremities Exam Comments: Aces removed. Left leg larger larger than right. Erythema noted and inner left thigh and also in lower leg. Scabs noted on right and left lower leg. - *Routine Neurological Exam Present: alert, oriented X3 Assessment and Plan (1) Sepsis Current visit: Yes Status: Acute Qualifiers: Sepsis type: sepsis due to unspecified organism Qualified Code(s): A41.9 - Sepsis, unspecified organism Category: Medical Code(s): A41.9 - Sepsis, unspecified organism (2) Stasis dermatitis of both legs Current visit: Yes Status: Acute Category: Medical Code(s): I87.2 - Venous insufficiency (chronic) (peripheral) (3) Cellulitis of left lower extremity Current visit: Yes Status: Acute Category: Medical Code(s): L03.116 - Cellulitis of left lower limb (4) Hypotension Current visit: Yes Status: Acute Category: Medical Code(s): I95.9 - Hypotension, unspecified (5) Elevated lactic acid level Current visit: Yes Status: Acute Category: Medical Code(s): R79.89 - Other specified abnormal findings of blood chemistry (6) Morbid obesity Current visit: Yes Status: Acute Category: Medical Code(s): E66.01 - Morbid (severe) obesity due to excess calories (7) Elevation of cardiac enzymes Current visit: Yes Status: Acute Category: Medical Code(s): R74.8 - Abnormal levels of other serum enzymes (8) Renal failure Current visit: Yes Status: Acute Category: Medical Code(s): N19 - Unspecified kidney failure (9) Poor venous access Current visit: Yes Status: Acute Category: Medical Code(s): I87.8 - Other specified disorders of veins (10) Bacteremia Problem details: strep dysgalactiae Current visit: Yes Status: Acute Category: Medical Code(s): R78.81 - Bacteremia - Assessment and plan all Dx Assessment and Plan for all problems:: Blood culture reveals strep sensitive to antibiotics which patient is on. We will get a Doppler study of her left leg.
--- NOTE | 2018-12-29 09:26 | Consult Report ---
History of Present Illness Consult date: 12/29/18 Requesting physician: Steven Galloway Chief complaint: Cellulitis/sepsis Additional Medical History:: 1. Obesity 2. Mixed valve disease A. Echo, 12/2018, 1. Technically very difficult study because of the patient's factor and poor acoustic windows, endocardial surfaces as well as the valvular structures are poorly visualized. 2. Biatrial enlargement, normal left ventricular size, mild concentric left ventricular hypertrophy, visually estimated ejection fraction of 65% with no regional wall motion abnormality, diastolic parameters are inconclusive. 3. Mildly enlarged right ventricle with normal contractility. 4. Thickened and calcified aortic valve with mean gradient across valve of 25 mmHg, valve area 1.5 sq cm represents mild aortic stenosis, there is no aortic insufficiency. 4. Abnormal mitral valve as described above. Dense mitral annular calcification which extends and both anterior and posterior mitral leaflet, the mitral inflow velocity is increased, however the valve area is 2.7 sq cm by pressure half time does not represent any significant mitral inflow obstruction, there is no significant mitral regurgitation seen. 5. Mild tricuspid regurgitation, tricuspid regurgitation jet velocity is inadequate for calculation of the right ventricular systolic pressure, diastolic parameters are inconclusive. Inferior vena cava is not well visualized. 6. If clinically indicated transesophageal echocardiogram has better sensitivity in detecting the valvular regurgitation 3. History of hypertension, currently on no medications 4. History of thyroid disease, on no current medications 5. History of pre-diabetes, treated with metformin but stopped by Nephrology about [id number] 6. Strong FH of CAD in father and brothers in their late 30's 7. History of Cardiac cath, 09/2015, [facility], [place], [place]. Normal coronaries, LVEF and hemodynamics. 8. Chronic kidney disease, stage II, creatinine 1.2 and GFR 48, 12/2018 9. History of LISBET and CPAP use. History of present illness: This 48-year-old white female 2 para 2 was admitted through the emergency room with evidence of sepsis and hypotension. She states that yesterday she felt fine but her legs had been swelling. This morning she began to feel bad and developed a fever. She thought she might have a urinary tract infection. She has some chronic problems with swelling and stasis changes in the legs. Indeed, 2 years ago she was hospitalized at [facility] for cellulitis of the legs. When she presented in the emergency room at [facility] on the day of admission, her blood pressure was running low and her heart rate was elevated in the 130s. She was given IV fluids. Her lactic acid was found to be elevated. Her white count was normal. The patient is on no current medications except for Xyzal allergy medication and 4 baby aspirin. She does have a prior history of treatment for blood pressure thyroid and diabetes. She states that 2 years ago she was taken off medications when she saw a can inspector in [place]. She was treated for thyroid disease for approximately 2 years The above per Dr. Galloway Cardiology consulted due to elevated troponins in the setting of sepsis. Echocardiogram performed this admission shows preserved left ventricular ejection fraction with mixed valvular heart disease without significant change compared with 2017 study. Patient denies any exertional chest pain or pressure although activity is limited due to obesity and lower extremity edema with dis comfort. She had admits that her family history is strong for early coronary artery disease in her brothers and father in their late 30s. Patient does relate having a cardiac catheterization after an abnormal stress test approximately 2 years at [facility] in [place], [place] with reportedly essentially normal coronary arteries per patient. [facility] History Medical History: Reports:: Diabetes Mellitus Type 2, Hypertension Denies:: Cancer, Diabetes Mellitus Type 1, MRSA *Have you ever received a pneumonia vaccine?: No *Have you received a flu vaccine this season?: No Other Medical History: Reports: Hypothyroidism Laterality Cases: Bilateral: Tonsillectomy Other Surgeries: Yes: Tubal Ligation Amputation: No Fractures: No - *Social History Educational Level: Completed High School Smoking Status: Former smoker (Smoked for 20 years. Stopped 10 years ago) Tobacco Type: cigarettes Alcohol Intake: never Alcohol Intake Frequency:: holidays/special occasions only Substance Use Type: denies use *Occupational Status:: other Housing: house Household Members: children (2 sons aged 20 and 21) *Travel in the last 8 weeks: None - Psychiatric History Expresses thoughts of harming self/others: None Suicide Plan Description: No Plan Family Hx:: Asthma, Coronary Artery Disease, Diabetes, Heart Attack, Hyperlipidemia, Hypertension, Tuberculosis Para: 2 Meds Home Medications Medication Instructions Recorded Confirmed Type Levocetirizine Dihydrochloride 5 mg PO DAILY 12/27/18 12/27/18 History [Xyzal] Allergies Allergy/AdvReac Type Severity Reaction Status Date / Time No Known Allergies Allergy Verified 12/26/18 12:54 Review of Systems - *Cardiovascular Reports shortness of breath with activity, Reports leg swelling, Reports leg sores, Denies chest pain - *Respiratory Reports shortness of breath with activity, Denies cough - *Gastrointestinal Denies loose stools, Denies nausea, Denies vomiting - *Genitourinary Denies blood in urine - *Musculoskeletal Reports joint pain, Reports back pain - *Neurologic Reports dizziness, Reports weakness, Denies abnormal hearing Exam Vital signs and Labs for Last 24 Hours: Temp Pulse Resp BP Pulse Ox 98.0 F 89 20 120/72 98 12/29/18 07:56 12/29/18 08:00 12/29/18 08:00 12/29/18 08:00 12/29/18 08:00 Laboratory Results - last 24 hr 12/28/18 17:27: Stl Aeromonas (PCR) Not detected, Stl C. cayetanensis PCR Not detected, Stool Rotavirus (PCR) Not detected, Stl Adenov F 40/41 PCR Not detected, Stool Astrovirus (PCR) Not detected, Stool Campylobacter PCR Not detected, Stl C.difficile Tox PCR Not detected, Stool Cryptosporidium PCR Not detected, Stl E.coli Shiga Tox PCR Not detected, Stool E coli O157 PCR Not detected, Stl Enterotoxigenic E PCR Not detected, Stool EPEC (PCR) Not detected, Stool EAEC (PCR) Not detected, Stl E. histolytica PCR Not detected, Stool Giardia Lamblia PCR Not detected, Stool Salmonella PCR Not detected, Stool Sapovirus (PCR) Not detected, Stl P. shigelloides PCR Not detected, Stl Shigella/EIEC PCR Not detected, St Y.enterocolitica PCR Not detected, Stool Vibrio (PCR) Not detected, Stl Vibrio cholerae PCR Not detected, Stl Norovirus GI/GII PCR Not detected 12/29/18 06:10: WBC 7.9 D, RBC 3.78 L, Hgb 10.0 L, Hct 32.8 L, MCV 87.0, MCH 26.4 L, MCHC 30.4 L, RDW 14.3, Plt Count 125 L D, MPV 9.4, Neut % (Auto) 84.9 H, Lymph % (Auto) 11.1, [place] % (Auto) 3.3, Eos % (Auto) 0.3, Baso % (Auto) 0.4, Neut # (Auto) 6.7, Lymph # (Auto) 0.9, [place] # (Auto) 0.3, Eos # (Auto) 0.0, Baso # (Auto) 0.0 12/29/18 06:10: Sodium 138, Potassium 3.9, Chloride 106, Carbon Dioxide 23, Anion Gap 12.9, BUN 22 H D, Creatinine 1.47 H D, Estimated Creat Clear 44, Estimated GFR 38 L, Est GFR ( Amer) 46 L D, Glucose 105, Calcium 8.1 L I & O for Last 24 hours: Intake & Output 12/26/18 12/27/18 12/28/18 12/29/18 11:59 11:59 11:59 11:59 Intake Total 2826.875 / 2826.875 5647 / 5647 6561 / 6561 Output Total 1125 / 1125 1150 / 1150 1600 / 1600 Balance 1701.875 / 3740.603 7481 / 4497 4961 / 4961 Weight 336 lb 4 oz 336 lb 3.984 oz 356 lb 4 oz Microbiology Reports for the Last 24 Hours: Microbiology 12/26/18 12:52 Blood Blood Culture - Preliminary Gram Positive Cocci 12/26/18 13:30 Blood Blood Culture - Final Strep dysgalactiae/canis - *Routine HEENT Exam Head: Present: normocephalic Eye: Present: EOMI, PERRL ENT: Present: mucous membranes moist - *Routine Neck Exam Present: supple. Absent: JVD, carotid bruit Comments: Left IJ catheter noted - *Routine Respiratory Exam Present: decreased breath sounds, CTA bilaterally. Absent: accessory muscle use, rales, rhonchi, wheezes - *Routine Cardiovascular Exam Present: RRR. Absent: murmur, gallop, rubs - *Routine Abdominal Exam Present: soft. Absent: tenderness, distended, guarding - *Routine Extremities Exam Present: edema. Absent: calf tenderness Comments: Venous stasis discoloration and healing ulcers noted in bilateral lower extr emities - *Routine Neurological Exam Present: alert, oriented X3, moving all extremities Assessment and Plan (1) Sepsis Current visit: Yes Status: Acute Qualifiers: Sepsis type: sepsis due to unspecified organism Qualified Code(s): A41.9 - Sepsis, unspecified organism Category: Medical Code(s): A41.9 - Sepsis, unspecified organism (2) Stasis dermatitis of both legs Current visit: Yes Status: Acute Category: Medical Code(s): I87.2 - Venous insufficiency (chronic) (peripheral) (3) Cellulitis of left lower extremity Current visit: Yes Status: Acute Category: Medical Code(s): L03.116 - Cellulitis of left lower limb (4) Hypotension Current visit: Yes Status: Acute Category: Medical Code(s): I95.9 - Hypotension, unspecified (5) Elevated lactic acid level Current visit: Yes Status: Acute Category: Medical Code(s): R79.89 - Other specified abnormal findings of blood chemistry (6) Morbid obesity Current visit: Yes Status: Acute Category: Medical Code(s): E66.01 - Morbid (severe) obesity due to excess calories (7) Elevation of cardiac enzymes Current visit: Yes Status: Acute Category: Medical Code(s): R74.8 - Abnormal levels of other serum enzymes (8) Renal failure Current visit: Yes Status: Acute Category: Medical Code(s): N19 - Unspecified kidney failure (9) Poor venous access Current visit: Yes Status: Acute Category: Medical Code(s): I87.8 - Other specified disorders of veins (10) Bacteremia Problem details: strep dysgalactiae Current visit: Yes Status: Acute Category: Medical Code(s): R78.81 - Bacteremia - Assessment and plan all Dx Assessment and Plan for all problems:: 1. Elevated cardiac enzymes in setting of sepsis and transient elevated creatinine. With echocardiogram showing preserved left ventricular ejection fraction and reportedly essentially normal coronary arteries approximately 2 years ago, no further recommendations at this time. However, we will obtain the official report from her cardiac catheterization for further review. With patient's strong family history, morbid obesity and history of prediabetes, she should have repeat stress testing every 3 years. Continue aspirin 81 mg daily 2. We will repeat troponin until trending down.
--- NOTE | 2018-12-29 16:05 | Pharmacy Consult Notes ---
- Pharmacy Consult Date: 12/29/18 Time: 16:04 Referring provider: DR. MELLO Reason for Consult:: VANCOMYCIN TROUGH LEVEL Allergies and ADEs:: Allergies Allergy/AdvReac Type Severity Reaction Status Date / Time No Known Allergies Allergy Verified 12/26/18 12:54 Home Medications:: Home Medications Medication Instructions Recorded Confirmed Type Levocetirizine Dihydrochloride 5 mg PO DAILY 12/27/18 12/27/18 History [Xyzal] Height: 1.7 m Weight: 161.592 kg Laboratory Results:: Laboratory Results - last 24 hr 12/28/18 17:27: Stl Aeromonas (PCR) Not detected, Stl C. cayetanensis PCR Not detected, Stool Rotavirus (PCR) Not detected, Stl Adenov F 40/41 PCR Not detected, Stool Astrovirus (PCR) Not detected, Stool Campylobacter PCR Not detected, Stl C.difficile Tox PCR Not detected, Stool Cryptosporidium PCR Not detected, Stl E.coli Shiga Tox PCR Not detected, Stool E coli O157 PCR Not detected, Stl Enterotoxigenic E PCR Not detected, Stool EPEC (PCR) Not detected, Stool EAEC (PCR) Not detected, Stl E. histolytica PCR Not detected, Stool Giardia Lamblia PCR Not detected, Stool Salmonella PCR Not detected, Stool Sapovirus (PCR) Not detected, Stl P. shigelloides PCR Not detected, Stl Shigella/EIEC PCR Not detected, St Y.enterocolitica PCR Not detected, Stool Vibrio (PCR) Not detected, Stl Vibrio cholerae PCR Not detected, Stl Norovirus GI/GII PCR Not detected 12/29/18 06:10: WBC 7.9 D, RBC 3.78 L, Hgb 10.0 L, Hct 32.8 L, MCV 87.0, MCH 26.4 L, MCHC 30.4 L, RDW 14.3, Plt Count 125 L D, MPV 9.4, Neut % (Auto) 84.9 H, Lymph % (Auto) 11.1, [place] % (Auto) 3.3, Eos % (Auto) 0.3, Baso % (Auto) 0.4, Neut # (Auto) 6.7, Lymph # (Auto) 0.9, [place] # (Auto) 0.3, Eos # (Auto) 0.0, Baso # (Auto) 0.0 12/29/18 06:10: Sodium 138, Potassium 3.9, Chloride 106, Carbon Dioxide 23, Anion Gap 12.9, BUN 22 H D, Creatinine 1.47 H D, Estimated Creat Clear 44, Estimated GFR 38 L, Est GFR ( Amer) 46 L D, Glucose 105, Calcium 8.1 L 12/29/18 06:10: Troponin I 0.25 H 12/29/18 15:30: Vancomycin Trough 16.3 Medical History: Reports:: Diabetes Mellitus Type 2, Hypertension Denies:: Cancer, Diabetes Mellitus Type 1, MRSA Assessment and Plan (1) Sepsis Current visit: Yes Status: Acute Qualifiers: Sepsis type: sepsis due to unspecified organism Qualified Code(s): A41.9 - Sepsis, unspecified organism Category: Medical Code(s): A41.9 - Sepsis, unspecified organism (2) Stasis dermatitis of both legs Current visit: Yes Status: Acute Category: Medical Code(s): I87.2 - Venous insufficiency (chronic) (peripheral) (3) Cellulitis of left lower extremity Current visit: Yes Status: Acute Category: Medical Code(s): L03.116 - Cellulitis of left lower limb (4) Hypotension Current visit: Yes Status: Acute Category: Medical Code(s): I95.9 - Hypotension, unspecified (5) Elevated lactic acid level Current visit: Yes Status: Acute Category: Medical Code(s): R79.89 - Other specified abnormal findings of blood chemistry (6) Morbid obesity Current visit: Yes Status: Acute Category: Medical Code(s): E66.01 - Morbid (severe) obesity due to excess calories (7) Elevation of cardiac enzymes Current visit: Yes Status: Acute Category: Medical Code(s): R74.8 - Abnormal levels of other serum enzymes (8) Renal failure Current visit: Yes Status: Acute Category: Medical Code(s): N19 - Unspecified kidney failure (9) Poor venous access Current visit: Yes Status: Acute Category: Medical Code(s): I87.8 - Other specified disorders of veins (10) Bacteremia Problem details: strep dysgalactiae Current visit: Yes Status: Acute Category: Medical Code(s): R78.81 - Bacteremia - Assessment and plan all Dx Assessment and Plan for all problems:: BASED ON VANCOMYCIN TROUGH LEVEL AND PATIENT FACTORS, RECOMMEND CONTINUING VANCOMYCIN 2750 MG IV Q24H. PHARMACY WILL CONTINUE TO MONITOR DAILY AND ADJUST APPROPRIATE.
[2018-12-30 06:21] LABS: Basophils # 0.1 K/mm3 (0-0.2); Basophils % 0.6 % (0.1-2.0); Eosinophils % 0.2 % (0.1-12.0); Hemoglobin 10.5 g/dL (12.2-16.2); Lymphocytes # 1.4 K/mm3 (0.7-4.5); Lymphocytes % 13.8 % (10-50); Mean Corpuscular HGB Conc 30.8 g/dL (31.8-35.4); Mean Corpuscular Volume 90.4 fl (81-99); Mean Platelet Volume 9.5 fl (7.4-10.4); Monocytes # 0.5 K/mm3 (0.1-1.0); Monocytes % 5.4 % (1.7-9.3); Neutrophils # 8.1 K/mm3 (1.8-7.8); Platelet Count 130 K/mm3 (142-424); Red Blood Count 3.76 M/mm3 (4.20-5.40); Red Cell Distribution Width 14.4 % (11.5-17.5); White Blood Count 10.1 K/mm3 (4.8-10.8)
[2018-12-30 06:25] LABS: Anion Gap 11.9 mEq/L (5-15); Calcium 8.5 mg/dL (8.5-10.1)
--- NOTE | 2018-12-30 08:09 | Progress Note ---
Subjective Date: 12/30/18 Time: 08:06 Principal diagnosis: sepsis Interval history: 48-year-old white female in bedside chair in no acute distress. No complaints except some soreness in the lower extremities. Exam Vital signs and Labs for Last 24 Hours: Temp Pulse Resp BP Pulse Ox 98.1 F 93 H 18 118/63 93 L 12/30/18 04:00 12/30/18 04:00 12/30/18 04:00 12/30/18 04:00 12/30/18 04:00 Laboratory Results - last 24 hr 12/29/18 06:10: Troponin I 0.25 H 12/29/18 15:30: Vancomycin Trough 16.3 12/30/18 05:30: WBC 10.1 D, RBC 3.76 L, Hgb 10.5 L, Hct 34.0 L, MCV 90.4, MCH 27.9, MCHC 30.8 L, RDW 14.4, Plt Count 130 L, MPV 9.5, Neut % (Auto) 80.0, Lymph % (Auto) 13.8, [place] % (Auto) 5.4, Eos % (Auto) 0.2, Baso % (Auto) 0.6, Neut # (Auto) 8.1 H, Lymph # (Auto) 1.4, [place] # (Auto) 0.5, Eos # (Auto) 0.0, Baso # (Auto) 0.1 12/30/18 05:30: Sodium 139, Potassium 3.9, Chloride 108 H, Carbon Dioxide 23, Anion Gap 11.9, BUN 17, Creatinine 1.29 H, Estimated Creat Clear 50, Estimated GFR 44 L, Est GFR ( Amer) 53 L, Glucose 101, Calcium 8.5 I & O for Last 24 hours: Intake & Output 12/27/18 12/28/18 12/29/18 12/30/18 11:59 11:59 11:59 11:59 Intake Total 2826.875 / 2826.875 5647 / 5647 6561 / 6561 3702 / 3702 Output Total 1125 / 1125 1150 / 1150 1600 / 1600 3000 / 3000 Balance 1701.875 / 0913.672 7914 / 4497 4961 / 4961 702 / 702 Weight 336 lb 4 oz 336 lb 3.984 oz 356 lb 4 oz 352 lb 6 oz - *Routine HEENT Exam Head: Present: normocephalic Eye: Present: EOMI, PERRL ENT: Present: mucous membranes moist - *Routine Respiratory Exam Present: CTA bilaterally. Absent: accessory muscle use, rales, rhonchi, wheezes - *Routine Cardiovascular Exam Present: RRR. Absent: murmur, gallop, rubs - *Routine Extremities Exam Present: edema. Absent: calf tenderness - *Routine Neurological Exam Present: alert, oriented X3, moving all extremities Progress Note: A&P (1) Sepsis Status: Acute Current Visit: Yes (2) Stasis dermatitis of both legs Status: Acute Current Visit: Yes (3) Cellulitis of left lower extremity Status: Acute Current Visit: Yes (4) Hypotension Status: Acute Current Visit: Yes (5) Elevated lactic acid level Status: Acute Current Visit: Yes (6) Morbid obesity Status: Acute Current Visit: Yes (7) Elevation of cardiac enzymes Status: Acute Current Visit: Yes (8) Renal failure Status: Acute Current Visit: Yes (9) Poor venous access Status: Acute Current Visit: Yes (10) Bacteremia Problem details: strep dysgalactiae Status: Acute Current Visit: Yes Assessment and Plan for All Diagnoses:: 1. Elevated troponins secondary to sepsis and elevated creatinine. 2016 cardiac cath showed normal coronary arteries. With normal LV function on echocardiogram this admission no further recommendations during his hospitalization. 2. We will be available to see as needed.
--- NOTE | 2018-12-30 08:33 | Progress Note ---
Internal Medicine - PN: Subj *Date: 12/30/18 *Time: 08:29 Interval history: Patient did sleep better last night with oxygen on. Feels she is eating better. She denies nausea and vomiting. She continues to have a small amount of diarrhea stool each time she voids. She is voiding QS. She ambulates to the bathroom independently. Chest pain and shortness of breath. Renal function is gradually improving. Exam Vital signs and Labs for Last 24 Hours: Temp Pulse Resp BP Pulse Ox 97.8 F 91 H 18 137/72 98 12/30/18 08:00 12/30/18 08:00 12/30/18 08:00 12/30/18 08:00 12/30/18 08:00 Laboratory Results - last 24 hr 12/29/18 06:10: Troponin I 0.25 H 12/29/18 15:30: Vancomycin Trough 16.3 12/30/18 05:30: WBC 10.1 D, RBC 3.76 L, Hgb 10.5 L, Hct 34.0 L, MCV 90.4, MCH 27.9, MCHC 30.8 L, RDW 14.4, Plt Count 130 L, MPV 9.5, Neut % (Auto) 80.0, Lymph % (Auto) 13.8, Duc[place]ne % (Auto) 5.4, Eos % (Auto) 0.2, Baso % (Auto) 0.6, Neut # (Auto) 8.1 H, Lymph # (Auto) 1.4, Duc[place]ne # (Auto) 0.5, Eos # (Auto) 0.0, Baso # (Auto) 0.1 12/30/18 05:30: Sodium 139, Potassium 3.9, Chloride 108 H, Carbon Dioxide 23, Anion Gap 11.9, BUN 17, Creatinine 1.29 H, Estimated Creat Clear 50, Estimated GFR 44 L, Est GFR ( Amer) 53 L, Glucose 101, Calcium 8.5 I & O for Last 24 hours: Intake & Output 12/27/18 12/28/18 12/29/18 12/30/18 11:59 11:59 11:59 11:59 Intake Total 2826.875 / 2826.875 5647 / 5647 6561 / 6561 3942 / 3942 Output Total 1125 / 1125 1150 / 1150 1600 / 1600 3000 / 3000 Balance 1701.875 / 1082.359 7376 / 4497 4961 / 4961 942 / 942 Weight 336 lb 4 oz 336 lb 3.984 oz 356 lb 4 oz 352 lb 6 oz - Constitutional no acute distress Comments: Awakened from sleep for assessment. Sleeps in recliner at bedside - *Routine Respiratory Exam Present: CTA bilaterally (Anteriorly and posteriorly) - *Routine Cardiovascular Exam Present: RRR (Monitor showing sinus rhythm in the 90s) - *Routine Abdominal Exam Present: normoactive bowel sounds. Absent: tenderness Comments: Obese - *Routine Extremities Exam Comments: Left leg with less edema and lower leg erythema. Upper left leg with more localized erythema and thigh and popliteal area. Right leg with less edema. Scabs on both legs appear to be healing and less. - *Routine Neurological Exam Present: alert, oriented X3 Assessment and Plan (1) Sepsis Current visit: Yes Status: Acute Qualifiers: Sepsis type: sepsis due to unspecified organism Qualified Code(s): A41.9 - Sepsis, unspecified organism Category: Medical Code(s): A41.9 - Sepsis, unspecified organism (2) Stasis dermatitis of both legs Current visit: Yes Status: Acute Category: Medical Code(s): I87.2 - Venous insufficiency (chronic) (peripheral) (3) Cellulitis of left lower extremity Current visit: Yes Status: Acute Category: Medical Code(s): L03.116 - C ellulitis of left lower limb (4) Hypotension Current visit: Yes Status: Acute Category: Medical Code(s): I95.9 - Hypotension, unspecified (5) Elevated lactic acid level Current visit: Yes Status: Acute Category: Medical Code(s): R79.89 - Other specified abnormal findings of blood chemistry (6) Morbid obesity Current visit: Yes Status: Acute Category: Medical Code(s): E66.01 - Morbid (severe) obesity due to excess calories (7) Elevation of cardiac enzymes Current visit: Yes Status: Acute Category: Medical Code(s): R74.8 - Abnormal levels of other serum enzymes (8) Renal failure Current visit: Yes Status: Acute Category: Medical Code(s): N19 - Unspecified kidney failure (9) Poor venous access Current visit: Yes Status: Acute Category: Medical Code(s): I87.8 - Other specified disorders of veins (10) Bacteremia Problem details: strep dysgalactiae Current visit: Yes Status: Acute Category: Medical Code(s): R78.81 - Bacteremia (11) Vaginitis Current visit: Yes Status: Acute Category: Medical Code(s): N76.0 - Acute vaginitis - Assessment and plan all Dx Assessment and Plan for all problems:: Patient has been started on a vaginal cream. We will continue with IV fluids and IV antibiotics. Patient needs her CPAP from home but cannot get it here for several reasons. Will order.
--- NOTE | 2018-12-30 09:48 | Progress Note ---
Internal Medicine - PN: Subj *Date: 12/30/18 *Time: 09:47 Exam Vital signs and Labs for Last 24 Hours: Temp Pulse Resp BP Pulse Ox 97.8 F 91 H 18 137/72 98 12/30/18 08:00 12/30/18 08:00 12/30/18 08:00 12/30/18 08:00 12/30/18 08:00 Laboratory Results - last 24 hr 12/29/18 06:10: Troponin I 0.25 H 12/29/18 15:30: Vancomycin Trough 16.3 12/30/18 05:30: WBC 10.1 D, RBC 3.76 L, Hgb 10.5 L, Hct 34.0 L, MCV 90.4, MCH 27.9, MCHC 30.8 L, RDW 14.4, Plt Count 130 L, MPV 9.5, Neut % (Auto) 80.0, Lymph % (Auto) 13.8, [place] % (Auto) 5.4, Eos % (Auto) 0.2, Baso % (Auto) 0.6, Neut # (Auto) 8.1 H, Lymph # (Auto) 1.4, [place] # (Auto) 0.5, Eos # (Auto) 0.0, Baso # ( Auto) 0.1 12/30/18 05:30: Sodium 139, Potassium 3.9, Chloride 108 H, Carbon Dioxide 23, Anion Gap 11.9, BUN 17, Creatinine 1.29 H, Estimated Creat Clear 50, Estimated GFR 44 L, Est GFR ( Amer) 53 L, Glucose 101, Calcium 8.5 I & O for Last 24 hours: Intake & Output 12/27/18 12/28/18 12/29/18 12/30/18 23:59 23:59 23:59 23:59 Intake Total 2826.875 / 2826.875 9770 / 89111 5057 / 5057 1323 / 1323 Output Total 1725 / 1875 1550 / 1550 3000 / 3000 600 / 600 Balance 1101.875 / 718.452 6961 / 9046 2056 / 2056 723 / 723 Weight 152.52 kg 152.52 kg 161.592 kg 159.835 kg Microbiology Reports for the Last 24 Hours: Microbiology 12/26/18 12:52 Blood Blood Culture - Preliminary Streptococcus dysgalactiae Assessment and Plan (1) Sepsis Current visit: Yes Status: Acute Qualifiers: Sepsis type: sepsis due to unspecified organism Qualified Code(s): A41.9 - Sepsis, unspecified organism Category: Medical Code(s): A41.9 - Sepsis, unspecified organism (2) Stasis dermatitis of both legs Current visit: Yes Status: Acute Category: Medical Code(s): I87.2 - Venous insufficiency (chronic) (peripheral) (3) Cellulitis of left lower extremity Current visit: Yes Status: Acute Category: Medical Code(s): L03.116 - Cellulitis of left lower limb (4) Hypotension Current visit: Yes Status: Acute Category: Medical Code(s): I95.9 - Hypotension, unspecified (5) Elevated lactic acid level Current visit: Yes Status: Acute Category: Medical Code(s): R79.89 - Other specified abnormal findings of blood chemistry (6) Morbid obesity Current visit: Yes Status: Acute Category: Medical Code(s): E66.01 - Morbid (severe) obesity due to excess calories (7) Elevation of cardiac enzymes Current visit: Yes Status: Acute Category: Medical Code(s): R74.8 - Abnormal levels of other serum enzymes (8) Renal failure Current visit: Yes Status: Acute Category: Medical Code(s): N19 - Unspec ified kidney failure (9) Poor venous access Current visit: Yes Status: Acute Category: Medical Code(s): I87.8 - Other specified disorders of veins (10) Bacteremia Problem details: strep dysgalactiae Current visit: Yes Status: Acute Category: Medical Code(s): R78.81 - Bacteremia (11) Vaginitis Current visit: Yes Status: Acute Category: Medical Code(s): N76.0 - Acute vaginitis The patient's infection will respond to the chosen ABx?: Yes Is the patient receiving the right drug, dose, and route?: Yes Could a more targeted ABx be ordered?: No
--- NOTE | 2018-12-31 08:22 | Progress Note ---
Internal Medicine - PN: Subj *Date: 12/31/18 *Time: 08:19 Interval history: Patient states she is feeling better this morning. She thinks she has less swelling in her left leg. She states she slept well last night and ate a good breakfast this morning. She has been sitting up in the chair. She denies any chest pain or shortness of breath. Exam Vital signs and Labs for Last 24 Hours: Temp Pulse Resp BP Pulse Ox 98.1 F 81 20 118/77 95 12/31/18 04:00 12/31/18 04:00 12/31/18 04:00 12/31/18 04:00 12/31/18 04:00 I & O for Last 24 hours: Intake & Output 12/28/18 12/29/18 12/30/18 12/31/18 11:59 11:59 11:59 11:59 Intake Total 5647 / 5647 6561 / 6561 3942 / 3942 2956 / 2956 Output Total 1150 / 1150 1600 / 1600 3000 / 3000 2200 / 2200 Balance 4497 / 4497 4961 / 4961 942 / 942 756 / 756 Weight 336 lb 3.984 oz 356 lb 4 oz 352 lb 6 oz Microbiology Reports for the Last 24 Hours: Microbiology 12/26/18 12:52 Blood Blood Culture - Preliminary Streptococcus dysgalactiae - Constitutional no acute distress - *Routine Respiratory Exam Present: CTA bilaterally - *Routine Cardiovascular Exam Present: RRR - *Routine Abdominal Exam Present: soft, normoactive bowel sounds. Absent: tenderness - *Routine Extremities Exam Present: edema (bilateral LE's, worse on the left) - *Routine Skin Exam Present: warm. Absent: rash Comments: left leg with less erythema, it is wrapped with an CHINO wrap Assessment and Plan (1) Sepsis Current visit: Yes Status: Acute Qualifiers: Sepsis type: sepsis due to unspecified organism Qualified Code(s): A41.9 - Sepsis, unspecified organism Category: Medical Code(s): A41.9 - Sepsis, unspecified organism (2) Stasis dermatitis of both legs Current visit: Yes Status: Acute Category: Medical Code(s): I87.2 - Venous insufficiency (chronic) (peripheral) (3) Cellulitis of left lower extremity Current visit: Yes Status: Acute Category: Medical Code(s): L03.116 - Cellulitis of left lower limb (4) Hypotension Current visit: Yes Status: Acute Category: Medical Code(s): I95.9 - Hypotension, unspecified (5) Elevated lactic acid level Current visit: Yes Status: Acute Category: Medical Code(s): R79.89 - Other specified abnormal findings of blood chemistry (6) Morbid obesity Current visit: Yes Status: Acute Category: Medical Code(s): E66.01 - Morbid (severe) obesity due to excess calories (7) Elevation of cardiac enzymes Current visit: Yes Status: Acute Category: Medical Code(s): R74.8 - Abnormal levels of other serum enzymes (8) Renal failure Current visit: Yes Status: Acute Category: Medical Code(s): N19 - Unspecified kidney failure (9) Poor venous access Current visit: Yes Status: Acute Category: Medical Code(s): I87.8 - Other specified disorders of veins (10) Bacteremia Problem details: strep dysgalactiae Current visit: Yes Status: Acute Category: Medical Code(s): R78.81 - Bacteremia (11) Vaginitis Current visit: Yes Status: Acute Category: Medical Code(s): N76.0 - Acute vaginitis - Assessment and plan all Dx Assessment and Plan for all problems:: Will continue antibiotics and discuss further care with Dr. Galloway.
[2019-01-01 06:37] LABS: Basophils # 0.2 K/mm3 (0-0.2); Basophils % 1.2 % (0.1-2.0); Eosinophils # 0.2 K/mm3 (0.0-0.4); Eosinophils % 1.2 % (0.1-12.0); Hematocrit 37.1 % (37.0-47.0); Hemoglobin 11.5 g/dL (12.2-16.2); Lymphocytes # 1.8 K/mm3 (0.7-4.5); Lymphocytes % 14.5 % (10-50); Mean Corpuscular Volume 88.6 fl (81-99); Mean Platelet Volume 9.5 fl (7.4-10.4); Monocytes # 0.6 K/mm3 (0.1-1.0); Monocytes % 5.1 % (1.7-9.3); Neutrophils # 9.7 K/mm3 (1.8-7.8); Neutrophils % 77.9 % (37.0-80.0); Platelet Count 185 K/mm3 (142-424); Red Blood Count 4.19 M/mm3 (4.20-5.40); Red Cell Distribution Width 14.4 % (11.5-17.5); White Blood Count 12.5 K/mm3 (4.8-10.8)
[2019-01-01 06:47] LABS: Anion Gap 10.8 mEq/L (5-15); Calcium 8.8 mg/dL (8.5-10.1)
--- NOTE | 2019-01-01 08:58 | Progress Note ---
Internal Medicine - PN: Subj *Date: 01/01/19 *Time: 08:56 Interval history: Patient has no new complaints today. She denies any pain and states she slept well last night and ate a good breakfast. She has both legs wrapped today and still has some redness but she feels there is less edema. Exam Vital signs and Labs for Last 24 Hours: Temp Pulse Resp BP Pulse Ox 97.9 F 78 16 136/86 98 01/01/19 08:00 01/01/19 08:00 01/01/19 08:00 01/01/19 08:00 01/01/19 08:00 Laboratory Results - last 24 hr 01/01/19 06:16: WBC 12.5 H, RBC 4.19 L, Hgb 11.5 L, Hct 37.1, MCV 88.6, MCH 27.4, MCHC 31.0 L, RDW 14.4, Plt Count 185 D, MPV 9.5, Neut % (Auto) 77.9, Lymph % (Auto) 14.5, Bacon % (Auto) 5.1, Eos % (Auto) 1.2, Baso % (Auto) 1.2, Neut # (Auto) 9.7 H, Lymph # (Auto) 1.8, [place] # (Auto) 0.6, Eos # (Auto) 0.2, Baso # (Auto) 0.2 01/01/19 06:16: Sodium 141, Potassium 3.8, Chloride 109 H, Carbon Dioxide 25, Anion Gap 10.8, BUN 13, Creatinine 1.32 H, Estimated Creat Clear 49, Estimated GFR 43 L, Est GFR ( Amer) 52 L, Glucose 111 H, Calcium 8.8 I & O for Last 24 hours: Intake & Output 12/29/18 12/30/18 12/31/18 01/01/19 11:59 11:59 11:59 11:59 Intake Total 6561 / 6561 3942 / 3942 3196 / 3196 1684 / 1684 Output Total 1600 / 1600 3000 / 3000 2700 / 2700 1400 / 1400 Balance 4961 / 4961 942 / 942 496 / 496 284 / 284 Weight 356 lb 4 oz 352 lb 6 oz 355 lb Radiology Reports for the Last 24 Hours: Doppler Diffuse subcutaneous edema in the thigh and left lower leg. - Constitutional no acute distress - *Routine Respiratory Exam Present: CTA bilaterally - *Routine Cardiovascular Exam Present: RRR - *Routine Abdominal Exam Present: soft, normoactive bowel sounds. Absent: tenderness - *Routine Extremities Exam Present: edema (bilaterally, CH[place] wraps in place, erythema of the upper left leg) Assessment and Plan (1) Sepsis Current visit: Yes Status: Acute Qualifiers: Sepsis type: sepsis due to unspecified organism Qualified Code(s): A41.9 - Sepsis, unspecified organism Category: Medical Code(s): A41.9 - Sepsis, unspecified organism (2) Stasis dermatitis of both legs Current visit: Yes Status: Acute Category: Medical Code(s): I87.2 - Venous insufficiency (chronic) (peripheral) (3) Cellulitis of left lower extremity Current visit: Yes Status: Acute Category: Medical Code(s): L03.116 - Cellulitis of left lower limb (4) Hypotension Current visit: Yes Status: Acute Category: Medical Code(s): I95.9 - Hypotension, unspecified (5) Elevated lactic acid level Current visit: Yes Status: Acute Category: Medical Code(s): R79.89 - Other specified abnormal findings of blood chemistry (6) Morbid obesity Current visit: Yes Status: Acute Category: Medical Code(s): E66.01 - Morbid (severe) obesity due to excess calories (7) Elevation of cardiac enzymes Current visit: Yes Status: Acute Category: Medical Code(s): R74.8 - Abnormal levels of other serum enzymes (8) Renal failure Current visit: Yes Status: Acute Category: Medical Code(s): N19 - Unspecified kidney failure (9) Poor venous access Current visit: Yes Status: Acute Category: Medical Code(s): I87.8 - Other specified disorders of veins (10) Bacteremia Problem details: strep dysgalactiae Current visit: Yes Status: Acute Cleopatra sheridany: Medical Code(s): R78.81 - Bacteremia (11) Vaginitis Current visit: Yes Status: Acute Category: Medical Code(s): N76.0 - Acute vaginitis - Assessment and plan all Dx Assessment and Plan for all problems:: Doppler showed no DVT but did show diffuse subcutaneous edema of the leg. We will try to place a PICC again today and if successful, patient can possibly be discharged on IV antibiotics.
--- NOTE | 2019-01-02 15:16 | Discharge Summary ---
General - General Admission date:: 12/26/18 Discharge date: 01/01/19 HPI HPI: This 48-year-old white female 2 para 2 was admitted through the emergency room with evidence of sepsis and hypotension. She states that yesterday she felt fine but her legs had been swelling. This morning she began to feel bad and developed a fever. She thought she might have a urinary tract infection. She has some chronic problems with swelling and stasis changes in the legs. Indeed, 2 years ago she was hospitalized at [facility] for cellulitis of the legs. When she presented in the emergency room at [facility] on the day of admission, her blood pressure was running low and her heart rate was elevated in the 130s. She was given IV fluids. Her lactic acid was found to be elevated. Her white count was normal. The patient is on no current medications except for Xyzal allergy medication and 4 baby aspirin. She does have a prior history of treatment for blood pressure, thyroid and diabetes. She states that 2 years ago she was taken off medications when she saw a supervisor audit clerks in [place]. She was treated for thyroid disease for approximately 2 years. Hospital Course Hospital Course: The patient received fluid boluses for sepsis and was placed on a low-dose of Levophed. She was started on IV antibiotics: Vancomycin and Zosyn. Pantera wraps were applied to her lower extremities. Her blood culture began growing gram- positive cocci. Her blood pressure continued to run low and she required low doses of Levophed. Initially her urine output was poor and a Hollis catheter was inserted. She received 20 mg of IV Lasix and her urinary output improved. She was able to be weaned off of the Levophed. The patient's fever increased and her cardiac enzymes elevated. She was not symptomatic for any chest pain during her admission and her EKG did not show acute changes. An EKG was repeated and Dr. Galloway spoke with Dr. Rae regarding the patient's cardiac status. Upon reviewing the data and cardiac enzymes, Dr. Rae felt that this was related to her sepsis rather than actual cardiac issues. An echo was ordered. He also felt that she was still behind on her fluid balance and that her fluid should be increased to 200 mL an hour. She had an echo showing an EF of 65%. It showed biatrial enlargement, left ventricular hypertrophy, a thickened and calcified aortic valve representing mild aortic stenosis, and dense mitral annular calcification which extended both anterior and posteriorly to the mitral leaflet, the mitral inflow velocity was increased but there was no significant mitral regurgitation. Dr. Art was consulted to place a central line as patient was being treated for sepsis. The patient had a repeat chest x-ray on 12/27/2018 which showed a left IJ catheter in place and a questionable minimal atelectasis of the right infrahilar region. There seemed to be some improvement after aggressively administering IV fluids. Her follow-up cardiac enzymes showed elevation but not progression. BNP was only 125 and her EKG did not show acute changes. Clinically she looked and felt much better, however she had developed erythema of the medial thigh on the left. She was continued on antibiotics. A K pad was applied to the left inner thigh. Her lab work began improving. Her fluids were decreased to 175 an hour. Her blood cultures came back positive for strep dysgalactiae which was sensitive to her current abx. A CPAP was ordered as the patient normally used this at home. She developed some diarrhea, therefore a diarrhea panel was ordered and was negative. A Doppler was ordered of her left leg and showed no DVT but soft tissue swelling. Cardiology was consulted and they felt the patient would need repeat stress testing every 3 years and should continue an 81 mg aspirin a day due to her morbid obesity and history of prediabetes. She had had essentially normal coronary arteries approximately on a 2016 cath. The patient finally began resting better and was able to eat. She denied any nausea or vomiting and she was able to ambulate around the room. She began having less swelling in her legs. Her Zosyn dose had had to be decreased due to renal function, but as this normalized, she was able to resume a higher dose of Zosyn. The vancomycin was discontinued. The patient had a PICC line placed for continued antibiotics. It was felt she was stable to be discharged and she will return to [facility] daily for 1 g of Rocephin for a total of 14 days. Physical therapy will be consulted for lymphedema therapy as an outpatient. Objective Vital signs: Temp Pulse Resp BP Pulse Ox 98.5 F 76 16 143/72 H 100 01/01/19 15:36 01/01/19 15:36 01/01/19 15:36 01/01/19 15:36 01/01/19 15:36 Narrative: - Constitutional no acute distress (Feels better since admission and treatment) - *Routine HEENT Exam Head: Present: normocephalic Eye: Present: PERRL ENT: Present: mucous membranes dry (Lips are pale.) - *Routine Neck Exam Present: supple. Absent: thyromegaly, tenderness - Routine Chest/Breast/Axilla Exam Breast: Absent: tenderness - *Routine Respiratory Exam Present: CTA bilaterally - *Routine Cardiovascular Exam Present: tachycardia (120) - *Routine Abdominal Exam Present: soft (Obese). Absent: tenderness, surgical scars - *Routine Rectal Exam Comments: Not done - *Routine Exam Comments: Not performed - *Routine Extremities Exam Present: edema (Bilateral) Comments: Bilateral stasis changes worse on the left lower leg with excoriations. No active weeping. Changes look more chronic than acute. - *Routine Skin Exam Present: pallor (Of lips) - *Routine Neurological Exam Present: alert, oriented X3, moving all extremities. Absent: altered mental status Results Labs on day of discharge: Preliminary micro results at discharge 12/26/18 12:52 Blood Culture - Preliminary Blood Streptococcus dysgalactiae DS: Diagnosis - Discharge Diagnosis (1) Sepsis Status: Acute (2) Stasis dermatitis of both legs Status: Acute (3) Cellulitis of left lower extremity Status: Acute (4) Hypotension Status: Acute (5) Elevated lactic acid level Status: Acute (6) Morbid obesity Status: Acute (7) Elevation of cardiac enzymes Status: Acute (8) Renal failure Status: Acute (9) Poor venous access Status: Acute (10) Bacteremia Status: Acute Problem details: strep dysgalactiae (11) Vaginitis Status: Acute Discharge Plan - Patient Discharge Instructions ACTIVITY: Limited activity DIET: continue same diet Patient Instructions: DI for Cellulitis -- Adult, Cellulitis, Fever of Unknown Origin, Central Line-Associated Bloodstream Infections, DI for Sepsis -- Adult, DI for Bacteremia--Child - Follow up Plan Follow up with: Steven Galloway MD [Staff Physician] - 01/05/19 Unknown provider or service follow up:: 01/01/19 16:10 Patient will come to [facility] daily as an outpatient for 8 more days of rocephin via her PICC line and will begin seeing Pearl Jimenez. Disposition: Home, Self-Longterm Medications: Home Medications Medication Instructions Recorded Confirmed Type Levocetirizine Dihydrochloride 5 mg PO DAILY 12/27/18 12/27/18 History [Xyzal] Prescriptions/Medication Reconciliation: Continued Levocetirizine Dihydrochloride [Xyzal] 5 mg PO DAILY
== END 2019-01-01 17:14 | disposition home or self-care (01) | DRG 872 ==
LOC: ER 12:34 → 2ND 16:19
PROVIDERS: ADMIT Family Medicine; ATTEND Family Medicine
CPT/HCPCS: 36415; 36569; 71010; 71045; 76882; 80048; 80053; 80202; 81001; 82550; 82553; 82803; 82962; 83036; 83605; 83880; 84443; 84484; 85007; 85025; 87040; 87077; 87186; 87507; 93005; 93306; 93971; 94660; 94761; 96365; 96366; 96375; 96376; 99285; C1751; J1642; J2405; J2543; J3370

== ENCOUNTER 2019-01-02 12:20 | Outpatient (CLI) | payer BC, SELFPAY ==
[2019-01-02 12:30] VITALS: BP 138/96; PULSE 84; RESP 20
[2019-01-02 13:40] VITALS: BP 153/86; PULSE 84; RESP 20
== END 2019-01-02 13:40 | disposition home or self-care (01) ==
LOC: INF 12:20
PROVIDERS: Visit Provider Family Medicine
DX: R78.81 Bacteremia (principal)
CPT/HCPCS: 96365

== ENCOUNTER 2019-01-03 12:07 | Outpatient (CLI) | payer BC, SELFPAY | END 2019-01-03 12:55 | disposition home health service (06) | PROVIDERS: PCP Family Medicine; Visit Provider Family Medicine | DX: R78.81 Bacteremia (principal) | CPT/HCPCS: 96365 ==

== ENCOUNTER 2019-01-04 12:02 | Outpatient (CLI) | payer BC, SELFPAY ==
[2019-01-04 12:15] VITALS: BP 158/90; PULSE 73; RESP 20; TEMP 36.6; O2SAT 91
[2019-01-04 13:32] VITALS: BP 158/86; PULSE 77; RESP 20; TEMP 36.6; O2SAT 98
== END 2019-01-04 12:56 | disposition home or self-care (01) ==
LOC: INF 12:03
PROVIDERS: PCP Family Medicine; Visit Provider Family Medicine
DX: R78.81 Bacteremia (principal)
CPT/HCPCS: 96365

== ENCOUNTER 2019-01-05 11:46 | Outpatient (CLI) | payer BC, SELFPAY ==
[2019-01-05 12:05] VITALS: BP 170/89; PULSE 80; RESP 20
[2019-01-05 12:55] VITALS: BP 158/82; PULSE 86; RESP 18
== END 2019-01-05 12:55 | disposition home or self-care (01) ==
LOC: INF 11:46
PROVIDERS: Visit Provider Family Medicine
DX: R78.81 Bacteremia (principal)
CPT/HCPCS: 96365

== ENCOUNTER 2019-01-06 12:21 | Outpatient (CLI) | payer BC, SELFPAY ==
[2019-01-06 12:10] VITALS: BP 177/99; PULSE 68; RESP 20; O2SAT 95
[2019-01-06 13:00] VITALS: BP 178/98; PULSE 88; RESP 20; TEMP 37.1; O2SAT 98
== END 2019-01-06 13:00 | disposition home or self-care (01) ==
LOC: INF 12:21
PROVIDERS: Visit Provider Family Medicine
DX: R78.81 Bacteremia (principal)
CPT/HCPCS: 96365

== ENCOUNTER 2019-01-22 08:27 | Outpatient (CLI) | payer BC, SELFPAY ==
[2019-01-22 09:11] VITALS: BMI 51.5
[2019-01-22 09:29] LABS: Anion Gap 9.9 mEq/L (5-15); Blood Urea Nitrogen 12 mg/dL (7-18); Calcium 9.8 mg/dL (8.5-10.1); Carbon Dioxide 30 mmol/L (21.0-32.0); Chloride 103 mmol/L (98-107); Creatinine Clearance Estimated 50 mL/min (50-200); Estimated Glomerular Filt Rate 44 ml/min (>60); GFR (African American) 53 ML/MIN (>60); Glucose 107 mg/dL (74-106); Potassium 3.9 mmoL/L (3.5-5.1); Sodium 139 mmol/L (136-145)
--- NOTE | 2019-01-22 09:55 | HMH.PHACONS ---
- Pharmacy Consult Date: 01/22/19 Time: 09:55 Referring provider: DR. LAROSE Reason for Consult:: VANCOMYCIN DOSING Allergies and ADEs:: Allergies Allergy/AdvReac Type Severity Reaction Status Date / Time No Known Allergies Allergy Verified 01/22/19 08:56 Home Medications:: Home Medications Medication Instructions Recorded Confirmed Type Levocetirizine Dihydrochloride 5 mg PO DAILY 12/27/18 01/22/19 History [Xyzal] Carvedilol [Carvedilol 3.125mg Tab] 3.125 mg PO BID 01/22/19 01/22/19 History Ergocalciferol (Vitamin D2) 400 unit PO DAILY 01/22/19 01/22/19 History [Vitamin D] Lactobacillus 3/Fos/Pantethine 1 each PO DAILY 01/22/19 01/22/19 History [Probiotic & Acidophilus Cap] levETIRAcetam [Keppra 500mg tablet] 500 mg PO BID 01/22/19 01/22/19 History Height: 1.68 m Weight: 144.696 kg Laboratory Results:: Laboratory Results - last 24 hr 01/22/19 09:05: Sodium 139, Potassium 3.9, Chloride 103, Carbon Dioxide 30, Anion Gap 9.9, BUN 12, Creatinine 1.30 H, Estimated Creat Clear 50, Estimated GFR 44 L, Est GFR ( Amer) 53 L, Glucose 107 H, Calcium 9.8 Medical History: Reports:: Diabetes Mellitus Type 2, Hypertension Denies:: Cancer, Diabetes Mellitus Type 1, MRSA Assessment and Plan - Assessment and plan all Dx Assessment and Plan for all problems:: BASED ON PATIENT FACTORS, RECOMMEND VANCOMYCIN 2500 MG IV Q24H. WILL OBTAIN VANCOMYCIN TROUGH LEVEL AND BMP ON 01/25/19 PRIOR TO 4TH DOSE. PHARMACY WILL FOLLOW DAILY AND ADJUST APPROPRIATE.
[2019-01-22 10:05] VITALS: BP 128/71; PULSE 78; RESP 18; TEMP 36.7; O2SAT 99
[2019-01-22 10:35] VITALS: BP 130/74; PULSE 82; RESP 18; TEMP 36.7; O2SAT 98
[2019-01-22 11:05] VITALS: BP 119/64; PULSE 84; RESP 20; O2SAT 97
--- NOTE | 2019-01-22 11:22 | PC.NURSE ---
01/22/19 0918 Cath-ivone 2.2ml instilled to R upper arm PICC due to no blood return. Port flushes easily and pt denies any pain or c/o with flushing of PICC prior to instillation of cath-ivone. Pt has been at [facility] for rehab and was discharged yesterday/pt reports PICC with no blood return for several days when she was a pt at [facility].
--- NOTE | 2019-01-22 11:25 | PC.NURSE ---
01/22/19 1000 R upper arm PICC assessed/ cath-ivone 2.2ml withdrawn from PICC line/ good blood return noted after instillation of cath-ivone/PICC flushes easily. Pt denies pain or c/o. Will administer Vancomycin IV as ordered when available.
[2019-01-22 11:33] VITALS: BP 124/64; PULSE 85; RESP 18; TEMP 36.6; O2SAT 98
[2019-01-22 11:59] VITALS: BP 133/76; PULSE 78; RESP 20; TEMP 36.7; O2SAT 98
[2019-01-22 12:20] VITALS: BP 127/62; PULSE 75; RESP 18; TEMP 36.8; O2SAT 99
== END 2019-01-22 12:30 | disposition home or self-care (01) ==
LOC: INF 08:27
PROVIDERS: Visit Provider Physical Medicine & Rehabilitation
DX: A41.9 Sepsis, unspecified organism (principal)
CPT/HCPCS: 36415; 80048; 96365; 96366; 96375; J3370

== ENCOUNTER 2019-01-23 09:18 | Outpatient (CLI) | payer BC, SELFPAY ==
[2019-01-23 09:32] VITALS: BP 137/75; PULSE 74; RESP 18
[2019-01-23 10:55] VITALS: BP 127/67; PULSE 70; RESP 18
[2019-01-23 11:55] VITALS: BP 139/74; PULSE 75; RESP 18
== END 2019-01-23 11:55 | disposition home or self-care (01) ==
LOC: INF 09:18
PROVIDERS: Visit Provider Physical Medicine & Rehabilitation
DX: A41.9 Sepsis, unspecified organism (principal)
CPT/HCPCS: 96365; 96366; J3370

== ENCOUNTER → 2019-01-24 09:02 | Outpatient (CLI) | payer BC, SELFPAY ==
[2019-01-24 09:02] VITALS: BP 127/72; PULSE 73; RESP 18; TEMP 36.7; O2SAT 99
[2019-01-24 09:23] VITALS: BP 146/68; PULSE 82; RESP 19; TEMP 36.8; O2SAT 97; BMI 113.5
== END ==
PROVIDERS: PCP Family Medicine; Visit Provider Physical Medicine & Rehabilitation
DX: A41.9 Sepsis, unspecified organism (principal)
CPT/HCPCS: 96365; 96366; J3370

== ENCOUNTER 2019-01-25 08:55 | Outpatient (CLI) | payer BC, SELFPAY ==
[2019-01-25 09:17] VITALS: BP 120/80; PULSE 77; RESP 16; TEMP 36.8; O2SAT 100; BMI 51.5
[2019-01-25 09:23] LABS: Anion Gap 13.1 mEq/L (5-15); Blood Urea Nitrogen 11 mg/dL (7-18); Calcium 9.8 mg/dL (8.5-10.1); Carbon Dioxide 29 mmol/L (21.0-32.0); Chloride 101 mmol/L (98-107); Creatinine Clearance Estimated 49 mL/min (50-200); Creatinine,Serum 1.32 mg/dL (0.55-1.02); Estimated Glomerular Filt Rate 43 ml/min (>60); GFR (African American) 52 ML/MIN (>60); Glucose 110 mg/dL (74-106); Potassium 4.1 mmoL/L (3.5-5.1); Sodium 139 mmol/L (136-145)
[2019-01-25 09:43] LABS: Vancomycin,Trough 22.7 mcg/ml (10.0-20.0)
--- NOTE | 2019-01-25 09:45 | PC.NURSE ---
informed by wojciech in pharmacy that vanc levels are to high and will not receive dose today. will inform pt to return to tomorrow for a dose
--- NOTE | 2019-01-25 09:46 | HMH.PHACONS ---
- Pharmacy Consult Date: 01/25/19 Time: 09:46 Referring provider: DR. LAROSE Reason for Consult:: VANCOMYCIN TROUGH LEVEL Allergies and ADEs:: Allergies Allergy/AdvReac Type Severity Reaction Status Date / Time No Known Allergies Allergy Verified 01/22/19 08:56 Home Medications:: Home Medications Medication Instructions Recorded Confirmed Type Levocetirizine Dihydrochloride 5 mg PO DAILY 12/27/18 01/25/19 History [Xyzal] Carvedilol [Carvedilol 3.125mg Tab] 3.125 mg PO BID 01/22/19 01/25/19 History Ergocalciferol (Vitamin D2) 400 unit PO DAILY 01/22/19 01/25/19 History [Vitamin D] Lactobacillus 3/Fos/Pantethine 1 each PO DAILY 01/22/19 01/25/19 History [Probiotic & Acidophilus Cap] levETIRAcetam [Keppra 500mg tablet] 500 mg PO BID 01/22/19 01/25/19 History Ammonium Lactate [Amlactin] 500 gm TP BID 01/23/19 01/25/19 History Aspirin [Aspirin 81mg EC Tab] 81 mg PO DAILY 01/23/19 01/25/19 History Height: 1.68 m Weight: 144.696 kg Laboratory Results:: Laboratory Results - last 24 hr 01/25/19 09:09: Vancomycin Trough 22.7 H 01/25/19 09:09: Sodium 139, Potassium 4.1, Chloride 101, Carbon Dioxide 29, Anion Gap 13.1, BUN 11, Creatinine 1.32 H, Estimated Creat Clear 49, Estimated GFR 43 L, Est GFR ( Amer) 52 L, Glucose 110 H, Calcium 9.8 Medical History: Reports:: Diabetes Mellitus Type 2, Hypertension Denies:: Cancer, Diabetes Mellitus Type 1, MRSA Assessment and Plan - Assessment and plan all Dx Assessment and Plan for all problems:: BASED ON PATIENT FACTORS AND VANCOMYCIN TROUGH LEVEL, RECOMMEND DECREASING DOSE TO VANCOMYCIN 2 GM IV Q24H. PHARMACY WILL CONTINUE TO MONITOR AND ADJUST APPROPRIATE.
== END 2019-01-25 09:58 | disposition home or self-care (01) ==
LOC: INF 08:55
PROVIDERS: PCP Family Medicine; Visit Provider Physical Medicine & Rehabilitation
DX: A41.9 Sepsis, unspecified organism (principal)
CPT/HCPCS: 80048; 80202

== ENCOUNTER 2019-01-26 09:10 | Outpatient (CLI) | payer BC, SELFPAY ==
[2019-01-26 09:25] VITALS: BP 146/86; PULSE 78; RESP 20; TEMP 36.9; O2SAT 95
[2019-01-26 10:25] VITALS: BP 121/65; PULSE 68; RESP 20; TEMP 36.9; O2SAT 95
[2019-01-26 11:35] VITALS: BP 122/66; PULSE 68; RESP 20; TEMP 36.9; O2SAT 95
== END 2019-01-26 11:35 | disposition home or self-care (01) ==
LOC: INF 09:10
PROVIDERS: Visit Provider Physical Medicine & Rehabilitation
DX: A41.9 Sepsis, unspecified organism (principal)
CPT/HCPCS: 96365; 96366; J3370

== ENCOUNTER 2019-01-27 09:07 | Outpatient (CLI) | payer BC, SELFPAY ==
[2019-01-27 10:20] VITALS: BP 120/64; PULSE 68; RESP 20; TEMP 36.9; O2SAT 95
[2019-01-27 11:00] VITALS: BP 118/74; PULSE 68; RESP 20; TEMP 36.9; O2SAT 95
[2019-01-27 11:35] VITALS: BP 131/60; PULSE 68; RESP 20; TEMP 36.9; O2SAT 95
--- NOTE | 2019-01-27 11:40 | PC.NURSE ---
CALLED AND SPOKE WITH [facility] TODAY TO TRY TO DETERMINE THE STOP DATE OF THE MEDICATION; AFTER DISCUSSING WITH TURBO OPERATOR THERE [facility] SHE NOTED THAT ACCORDING TO THE DISCHARGE INSTRUCTIONS FROM THAT FACILITY SHE WAS TO COMPLETED NOW; I CALLED AND SPOKE WITH PCP OFFICE AND GOT PATIENT AN APPT FOR TOMORROW WITH PCP. HE WILL DETERMINE IF ANY FURTHER TREATMENT IS NEEDED SHE HAS NO FOLLOW UP WITH MD FROM [place]; PICC CARE WAS DONE AND PICC WAS LEFT IN PLACE AND PATIENT WILL FOLLOW UP WITHIN ONE WEEK FOR DRESSING CHANGE TO THE PICC UNLESS PCP RESUMES IV ABX
[2019-01-27 12:30] VITALS: BP 118/74; PULSE 68; RESP 20; TEMP 36.9
== END 2019-01-27 12:30 | disposition home or self-care (01) ==
LOC: INF 09:07
PROVIDERS: Visit Provider Physical Medicine & Rehabilitation
DX: A41.9 Sepsis, unspecified organism (principal)
CPT/HCPCS: 96365; 96366; 96375; J3370

== ENCOUNTER → 2019-01-28 14:51 | Outpatient (CLI) | payer BC, SELFPAY ==
--- NOTE | 2019-01-28 | ECG_ITS ---
APPROVED REPORT Exam: Resting ECG HR:82 bpm ECG Measurements Heart Rate 82 AXES CA 144 P 51 QRSd 78 QRS 83 QT 348 T -10 QTc 406 <Conclusion> Normal sinus rhythm NSSTTW changes Abnormal ECG Electronically signed by : You Roland, 01/29/2019 11:03:21
--- NOTE | 2019-01-28 15:37 | XR_ITS ---
PROCEDURE: XR CHEST 2V CLINICAL HISTORY: H/O SEPSIS Sepsis COMPARISON: CXR CHEST(2 VIEWS-NOT PORTABLE) from 01/03/2016 FINDINGS: Cardiomegaly with mild pulmonary venous congestion. The lungs are clear without infiltrates, suspicious nodules, or pleural effusions. No acute bony abnormalities. IMPRESSION: Mild CHF Dictated by: Yash Lindquist MD 01/28/2019 16:01 Signed by: <Electronically signed by Yash Lindquist MD in [place]> 01/28/2019 16:01
== END ==
PROVIDERS: PCP Family Medicine; Visit Provider Family Medicine
DX: Z86.74 Personal history of sudden cardiac arrest (principal); Z86.19 Personal history of other infectious and parasitic diseases; G47.33 Obstructive sleep apnea (adult) (pediatric)
CPT/HCPCS: 71046; 93005

== ENCOUNTER 2019-02-03 12:21 | Outpatient (CLI) | payer BC, SELFPAY ==
[2019-02-03 12:55] VITALS: BP 126/86; PULSE 71; RESP 18; TEMP 36.7; O2SAT 98
== END 2019-02-03 12:55 | disposition home or self-care (01) ==
LOC: INF 12:21
PROVIDERS: Visit Provider Family Medicine
DX: Z45.2 Encounter for adjustment and management of vascular access device (principal); A41.9 Sepsis, unspecified organism
CPT/HCPCS: 96523

== ENCOUNTER → 2019-02-04 08:02 | Outpatient (CLI) | payer BC, SELFPAY ==
--- NOTE | 2019-02-04 08:21 | CA_ITS ---
APPROVED REPORT EXAM: Comprehensive 2D, Doppler, and color-flow Echocardiogram Direct Sales Professional: Priya Chu RDCS Ht: 5 ft 6 in Wt: 311lbs BSA: 2.41 BP: 143/72 mmHg Indications: CAD POST CARDIAC ARREST MORBID OBESITY HTN 2D Dimensions LVOT 1.90 cm (M/F) 1.5-2.5 M-Mode Dimensions RVDd 2.60 cm (0.9-2.6) LA Diam 4.30 cm (1.9-4.0) LVDd 5.40 cm (3.5-5.7) Ao Diam 2.60 cm (2.0-3.7) LVDs 3.20 cm (3.5-5.7) AV Cusp 1.00 cm (1.5-2.6) IVSd 1.20 cm (0.6-1.1) PWd 1.00 cm (0.6-1.1) EF (Teich) 70.90% FS 40.70% EDV (Teich) 141.00 mL ESV (Teich) 41.00 mL LV Diastology E/A Ratio 1.9 MED E' 6.14 (< 7 cm/sec) E'/MED E' Ratio 23.00 (>14) LAT E' 5.85 (<10 cm/sec) E/LAT E' Ratio 24.10 (>14) Aortic Valve LVOT Max 205.00 (70-110 cm/s) LVOT VTI 43.40 cm AoV Peak Brian. 279.00 (50-130 cm/s) AO Peak GR. 31.00 mmHg AO Mean GR. 16.00 (<5 mmHg) AO VTI 61.10 (18-25 cm) JAYLEN (VTI) 2.02 (2.5-4.5 cm2) Mitral Valve MV E Max Brian. 141.00 (40-130 cm/s) MV A Velocity 76.00 (40-130 cm/s) E/A Ratio 1.90 MV PHT 90.00 ms MVA PHT 2.4 cm2 Tricuspid Valve TR P. Velocity 377.00 cm/s RAP Estimate 10.00 mmHg RVSP 67.00 mmHg Left Ventricle Left atrium is moderately enlarged, left ventricle is normal size, mild concentric left ventricular hypertrophy, visually estimated ejection fraction 55% with no regional wall motion abnormality, diastolic parameters are inconclusive, tissue Doppler is indicative of raise left atrial pressure. Right Ventricle Right atrium and right ventricle mildly enlarged with normal contractility. Aortic Valve Aortic valve is thickened and calcified. With mild restriction to leaflet mobility. The mean gradient across aortic valve is 15 mmHg represents mild aortic stenosis, there is no aortic insufficiency. Mitral Valve Mitral valve has mitral annular calcification, which extends in both anterior and posterior mitral leaflet. The mitral inflow velocity is increased to 1.9 m/s, mitral valve area is 2.5 cm??? by pressure half-time method. This does not represent any significant mitral inflow obstruction. There is no mitral regurgitation. Tricuspid Valve Tricuspid valve is grossly normal, there is no tricuspid stenosis, there is mild tricuspid regurgitation. Pulmonic Valve Pulmonic valve is poorly visualized. Great Vessels Aortic root is normal size. Pericardium No significant pericardial effusion noted. Conclusion 1. Biatrial enlargement, normal left ventricular size, mild concentric left ventricular hypertrophy, visually estimated ejection fraction 55% with no regional wall motion abnormality. Grade 1 diastolic dysfunction seen with tissue Doppler evidence of raise left atrial pressure. 2. Mildly enlarged right ventricle with normal contractility. 3. Thickened and calcified aortic valve with mild aortic stenosis, there is no aortic insufficiency. 4. Abnormal mitral valve as described above, mitral valve area is 2.5 cm??? does not represent any significant mitral inflow obstruction, there is mild mitral regurgitation 5. Mild tricuspid regurgitation 6. No significant pericardial effusion noted. Electronically signed by : Nas Ennis, 02/06/2019 17:29:02
== END ==
PROVIDERS: PCP Family Medicine; Visit Provider Family Medicine
DX: Z86.74 Personal history of sudden cardiac arrest (principal)
CPT/HCPCS: 93306

== ENCOUNTER 2019-02-09 13:07 | Outpatient (CLI) | payer BC, SELFPAY | END 2019-02-09 15:15 | disposition home or self-care (01) | LOC: INF 13:07 | PROVIDERS: Visit Provider Family Medicine | DX: A41.9 Sepsis, unspecified organism (principal); Z45.2 Encounter for adjustment and management of vascular access device | CPT/HCPCS: 96523; G0463 ==

== ENCOUNTER → 2019-02-25 06:07 | Outpatient (CLI) | payer BC, SELFPAY ==
--- NOTE | 2019-02-25 | CA_ITS ---
APPROVED REPORT Exam: Pharmacologic Technologist: Lizz Islas, Ht: 5 ft 6 in Wt: 303 lbs BSA: 2.39 m2 HR: 85 bpm BP: 148/80 mmHg Indications: Abnormal echo Medical History Medications: Aspirin,,,,, Vitamin D3,,,,, Carvedilol,,,,, Probiotic,,,,, KEPPRA,,,,, SpirOnolactone,,,,, Xyzal,,,,, Stress Test Details Test: LEXISCAN HR Resting HR: 94 bpm Max Heart Rate (APMHR): 172 bpm Max HR Achieved: 117 bpm Target HR (85% APMHR): 146 bpm % of APMHR: 68 Recovery HR: 92 bpm BP Resting BP: 148/80 mmHg Max BP: 153/90 mmHg Recovery BP: 140.0/89.0 mmHg ECG Clinical Exercise duration: 04:00 min Highest Stage Achieved: Exercise capacity: 1.0 METs Stress ECG Conclusion Resting ECG: Normal sinus rhythm, right axis deviation, ST-T abnormalities inferiorly and laterally, PAC's. Symptoms: Mild malaise. No chest pain Arrhythmias/Ectopy: Occasional PAC ST-T Changes: Exaggeration of baseline ST-T abnormalities. Conclusion: Non-diagnostic Lexiscan stress. Myoview images reported separately. Test Summary REST . . . . . . . Sitting REST 16:28 . . 94 . 148/ 80 . . Stage 1 . . . . . . . Myoview Injected Stage 1 01:00 . . 115 . . . . Stage 2 01:00 . . 111 . 153/ 90 . . Stage 3 01:00 . . 101 . . . . Stage 4 01:00 . . 101 . 136/ 84 . Stop exercise at 04:00 RECOVERY 01:00 . . 95 . 134/ 82 . . RECOVERY 02:00 . . 91 . 134/ 82 . . RECOVERY 03:00 . . 89 . 135/ 77 . . RECOVERY 04:00 . . 93 . 135/ 77 . . RECOVERY 04:55 . . 90 . 140/ 89 . . Electronically signed by : Nas Ennis, 02/25/2019 21:11:59
--- NOTE | 2019-02-25 06:11 | NM_ITS ---
APPROVED REPORT Exam: Nuclear Stress Test Indication: abn echo, obesity, htn, fm. hx. Patient Location: Outpatient Stress Tech: Lizz Islas OR Tech:Tawana Avery, ARRT, RT (R)(N) Ht: 5 ft 6 in Wt: 303 lbs HR: 85 bpm BP: 148/80 mmHg BSA: 2.39 m2 BMI: 48.8 History: abn echo, obesity, htn, fm. hx. Procedure: Patient received a 0.4 mg of intravenous Lexiscan, resting heart rate 85 bpm, resting blood pressure 148/80 mmHg, with Lexiscan maximum heart rate achived was 114 bpm which is Less than 85 % of the maximum predicted heart rate and blood pressure was 153/90 mmHg. With Lexiscan, patient denied any complaint of chest pain. Electrocardiogram Sinus rhythm nonspecific ST-T changes, with Lexiscan there is less than 1.[address] segment depression noted from the baseline EKG. The EKG portion of the Lexiscan Myoview is nondiagnostic. Cardiac Stress and Resting SPECT Images: Cardiac Stress and Resting SPECT images were obtained using technetium 99m Myoview 31.6 mCi stress and 10.22 mCi at rest. Gated SPECT with analysis of segmental wall motion and calculation of the ejection fraction also done. Cardiac stress and resting SPECT images show decreased tracer activity in the anterolateral wall which improves on the resting images suggestive of reversible ischemia, computer derived ejection fraction is over 65% with no regional wall motion abnormality, right ventricle is normal size and contractility. Conclusion: 1. The EKG portion of the Lexiscan Myoview is nondiagnostic. 2. Scintigraphic evidence of reversible ischemia involving the anterolateral wall, computer derived ejection fraction is over 65% with no regional wall motion abnormality. However this study is technically limited due to patient's body habitus. 3. Likely abnormal Lexiscan Myoview study. Electronically signed by : Nas Ennis, 02/25/2019 21:14:11
--- NOTE | 2019-02-25 07:19 | HMH.ITSHM ---
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 []CARVEDILOL SPIRONOLACTONE ASA KEPPRA VITAMIN D3 XYZAL PROBIOTIC
== END ==
PROVIDERS: PCP Family Medicine; Visit Provider Internal Medicine Cardiovascular Disease
DX: I10 Essential (primary) hypertension (principal); I34.0 Nonrheumatic mitral (valve) insufficiency; I35.0 Nonrheumatic aortic (valve) stenosis
CPT/HCPCS: 78452; 93017; A9502; J2785

== ENCOUNTER → 2019-03-04 13:56 | Outpatient (CLI) | payer BC, SELFPAY ==
[2019-03-04 16:32] LABS: Anion Gap 13.5 mEq/L (5-15); Blood Urea Nitrogen 15 mg/dL (7-18); Calcium 9.1 mg/dL (8.5-10.1); Carbon Dioxide 29 mmol/L (21.0-32.0); Chloride 101 mmol/L (98-107); Creatinine,Serum 1.11 mg/dL (0.55-1.02); Estimated Glomerular Filt Rate 52 ml/min (>60); GFR (African American) 63 ML/MIN (>60); Glucose 95 mg/dL (74-106); Potassium 4.5 mmoL/L (3.5-5.1); Sodium 139 mmol/L (136-145)
== END ==
PROVIDERS: Visit Provider Internal Medicine Cardiovascular Disease
DX: I10 Essential (primary) hypertension (principal); I34.0 Nonrheumatic mitral (valve) insufficiency; I35.0 Nonrheumatic aortic (valve) stenosis; I50.9 Heart failure, unspecified; I51.89 Other ill-defined heart diseases; N18.9 Chronic kidney disease, unspecified; R94.31 Abnormal electrocardiogram [ECG] [EKG]; Z82.49 Family history of ischemic heart disease and other diseases of the circulatory system; Z86.74 Personal history of sudden cardiac arrest
CPT/HCPCS: 36415; 80048; 83880

== ENCOUNTER → 2019-03-11 08:01 | Outpatient (CLI) | payer SELFPAY ==
--- NOTE | 2019-03-11 08:03 | CT_ITS ---
PROCEDURE: CT HEART W CALCIUM SCORE CLINICAL HISTORY: SCREENING COMPARISON: No exams were available for comparison TECHNIQUE: Axial images obtained with sagittal and coronal reformats. All CT scans at the facility use one or more dose reduction, viz: automated exposure control, ma/kV adjustment per patient size (including targeted exams where dose is matched to indication, i.e. head), or iterative reconstruction technique. FINDINGS: The coronary artery calcium score is 18 indicating mild plaque burden with moderate cardiovascular disease risk. The heart size is normal. There is prominent calcification of the mitral valve annulus and there is mild aortic valve calcification. There is a noncalcified 5 mm nodule in the right middle lobe laterally. Calcified granuloma is present in the left lower lobe. There is a small hiatal hernia. IMPRESSION: 1. Mild plaque burden with moderate cardiovascular disease risk. 2. Calcification of the mitral valve annulus with aortic valve calcification also noted 3. 5 mm right middle lobe nodule nonspecific. Consider 6-12 month follow-up Dictated by: Yash Lindquist MD 03/12/2019 18:32 Electronically signed by Yash Lindquist MD in [place] 03/12/2019 18:32
== END ==
PROVIDERS: PCP Family Medicine; Visit Provider Internal Medicine Cardiovascular Disease
DX: Z13.6 Encounter for screening for cardiovascular disorders (principal)
CPT/HCPCS: 75571

== ENCOUNTER 2019-04-14 14:00 | Outpatient (RCR) | payer BC, SELFPAY ==
--- NOTE | 2019-02-03 14:30 | HMH.PTOPWND ---
Rehab Outpt Wound Evaluation Rehab OP Wound Evaluation Start: 02/03/19 13:56 Freq: Status: Active Protocol: Document 02/03/19 14:22 KATERIN (Rec: 02/03/19 14:29 PHORNE [id number]) Electronically Signed By Js Vazquez, PT 02/03/19 14:22 Subjective/History History History Pt is 48 yowf who presents with c/o B LE edema x ~ 2-3 yrs with worse episode ~ 1-2 mos ago with an associated episode of sepsis. She reports less edema currently, but continued redness in the left LE. She reports no c/o pain currenlty, but some itching remains in the left LE. She was discharged from [facility] after her bout of sepsis ~ 1 mo ago, then she reports having a seizure several days later and was admitted to [facility] in the ICU for ~ 1 wk. She now reports generalized feelings of weakness and tiredness due to long hospitalizations. PMH: tubal ligation. Subjective Subjective Currently no c/o pain. Lymphedema Eval Classification of Lymphedema Secondary Lymphedema Yes Stemmer's sign Stemmer's Sign no Stage of Lymphedema Lymphedema stages Stage I (Pitting edema, reduces w/ elevation, no fibrosis) Skin Changes Dry Skin Yes Redness Yes Discoloration of Skin Yes Other Changes Yes Pain Scale Pain Scale (0-10) 0 Affected Extremities Areas Affected by Lymphedema/Edema Right Lower Extremity,Left Lower Extremity Manual Lymphatic Drainage Treatment Area MLD Treatment Area Right Lower Extremity,Left Lower Extremity Wound Problems/Impairments Impairments Problems/Impairmments Impaired Strength,Impaired Endurance,Impaired Walking, Impaired Recreational Activities,Increased Edema, Lymphedema Present,Wound Care Needs,Impaired Self Care/Self Management Prognosis Rehab Potential Good Clinical Impression Consistent with Diagnosis Yes Short Term Goals Number of Weeks 4 Incre
--- NOTE | 2019-03-10 14:58 | HMH.RHREAS ---
Rehab Reassessment Rehab OP Re-assessment Start: 03/10/19 14:54 Freq: Status: Active Protocol: Document 03/10/19 14:55 KATERIN (Rec: 03/10/19 14:58 KATERIN [id number]) Electronically Signed By Js Vazquez, PT 03/10/19 14:55 Rehab Re-assessment Subjective Subjective Pt reports only minimal c/o edema in left LE now, but continues to need compression stockings. Objective Objective Notes 1+ pitting edema to the left LE, No tenderness to palpation . Ambulating 15' on TM without c/o SOA. Assessment Progress Assessment Progressing as Expected Assessment Notes Pt with considerably less edema in B LE, improving endurance to all activity. Patient goals met ST,2,3 Goals Not Met LT,2,3,4,5 Revised Goals none Plan Plan Continue per initial POC. Frequency of Therapy 2 x/wk Duration of therapy 8 wks Time and Billing Re-Eval Time 15 Re-Eval Billing Units 1 PHYSICIAN CERTIFICATION: I certify the specified therapy services for [employer] are required, authorized, and reviewed every 30 days.
--- NOTE | 2019-04-14 14:00 | HMH.RHREAS ---
Rehab Reassessment Rehab OP Re-assessment Start: 03/10/19 14:54 Freq: Status: Active Protocol: Document 04/14/19 13:57 KATERIN (Rec: 04/14/19 14:00 KATERIN [id number]) Electronically Signed By Js Vazquez, PT 04/14/19 13:57 Rehab Re-assessment Subjective Subjective Pt reports she is back to work and having no difficulty with SOA or fatigue. Objective Objective Notes Minimal 1+ pitting edema noted on left LE this date after 8 hr shift at work yesterday. Assessment Progress Assessment Progressing as Expected Assessment Notes Pt tolerating all work requirements without difficulty and no increased edema noted. Patient goals met ST,2,3 LT,2,3 Goals Not Met LT,5 Revised Goals none Plan Plan Continue per initial POC. Frequency of Therapy 2 x/wk Duration of therapy 8 wks Time and Billing Re-Eval Time 15 Re-Eval Billing Units 1 PHYSICIAN CERTIFICATION: I certify the specified therapy services for [employer] are required, authorized, and reviewed every 30 days.
== END 2019-04-14 14:05 | disposition home or self-care (01) ==
LOC: PT 14:00
PROVIDERS: PCP Family Medicine; Visit Provider Family Medicine
DX: Z86.19 Personal history of other infectious and parasitic diseases (principal); A41.9 Sepsis, unspecified organism; L03.116 Cellulitis of left lower limb; L03.115 Cellulitis of right lower limb
CPT/HCPCS: 97110; 97112; 97140; 97162; 97164

== ENCOUNTER 2020-02-17 09:42 | Emergency (ER) | payer BC, SELFPAY ==
--- NOTE | 2020-02-17 09:57 | HMH.EDUTC ---
[facility] [place] Clinical Impression: Conjunctivitis Qualifiers: Conjunctivitis type: acute Acute conjunctivitis type: unspecified Laterality: bilateral Qualified Code(s): H10.33 - Unspecified acute conjunctivitis, bilateral Disposition: Home, Self-Care Condition on Discharge: Good Instructions: Conjunctivitis Additional Instructions: Use the eye drops as directed. Strict hand washing in the house hold, because conjunctivitis is very contagious. Follow up with your regular doctor. GO TO THE ER FOR ANY WORSENING SYMPTOMS OR CONCERNS Prescriptions: Sulfacetamide Sodium [Bleph-10] 1 drp EYE-BOTH Q3H 7 Days #1 bottle Transmission Status: Received by [facility] Referrals: Steven Galloway MD [Primary Care Provider] - Forms: Work/School Release Time of Disposition: 10:13 Medical Decision Making - Medical Records Medical records reviewed: No: I reviewed the patient's medical records. - Tato Inquiry Pt receiving controlled substance: No Vital Signs: 02/17/20 09:58 02/17/20 10:14 Temperature 97.6 F 97.6 F Temperature Source Oral Pulse Rate 88 Pulse Rate [Left] 88 Respiratory Rate 18 21 Blood Pressure 168/91 H Blood Pressure [Right Arm] 168/91 H Blood Pressure Mean [Right Arm] 116 Blood Pressure Source [Right Arm] Automatic Cuff Blood Pressure Position [Right Arm] Sitting 02 Sat by Pulse Oximetry 99 Oxygen Delivery Method Room Air [facility] [place] - General Stated complaint: eye infection Time Seen by Provider: 02/17/20 09:57 - History of Present Illness Provider Complaint: She states that yesterday morning she awoke with some right eye matting and irritation feeling. Since then her right eye has became more irritated feeling and it has became red. Now her left eye has began to feel irritated and be red. She denies any foreign body or possible eye injury. She does not have any history of any eye problems. She denies being around anyone with pink eye recently. She states that her vision is normal in both eye, other than the increased tear production. - Related Data Home Medications Medication Instructions Recorded Confirmed Levocetirizine Dihydrochloride 5 mg PO DAILY 12/27/18 03/19/19 [Xyzal] Ergocalciferol (Vitamin D2) 400 unit PO DAILY 01/22/19 03/19/19 [Vitamin D] Lactobacillus 3/Fos/Pantethine 1 each PO DAILY 01/22/19 03/19/19 [Probiotic & Acidophilus Cap] Aspirin [Aspirin 81mg EC Tab] 81 mg PO DAILY 01/23/19 03/19/19 levetiracetam 500 mg tablet 1,000 mg PO BID tab 02/19/19 03/19/19 Previous Rx's Medication Instructions Recorded carvedilol 3.125 mg tablet 3.125 mg PO BID #180 tab 03/19/19 spironolactone 25 mg tablet 25 mg PO DAILY #90 tab 03/19/19 Ciprofloxacin HCl [Ciprofloxacin 500 mg PO BID 14 Days #28 tab 05/08/19 500mg Tab] Doxycycline Hyclate [Doxycycline 100 mg PO BID 14 Days #28 cap 05/08/19 100mg Capsule] Sulfacetamide Sodium [Bleph-10] 1 drp EYE-BOTH Q3H 7 Days #1 bottle 02/17/20 Allergies Allergy/AdvReac Type Severity Reaction Status Date / Time No Known Allergies Allergy Verified 02/17/20 10:07 [facility] History - Hepatitis A Screen Attestation statement:: This patient has been screened for Hepatitis A risk factors. I have reviewed the patient's past medical history: Yes Medical History: Reports:: Congestive Heart Failure, Heart Murmur, Hypertension, MRSA, Renal Disease, Seizures Denies:: Cancer, Diabetes Mellitus Type 1, Diabetes Mellitus Type 2 Other Medical History: Reports: Hypothyroidism Laterality Cases: Bilateral: Tonsillectomy Other Surgeries: Yes: Tubal Ligation Amputation: No Fractures: No - Social History Smoking Status: Never smoker Tobacco Type: cigarettes #Yrs smoked (if former smoker): 10 Alcohol Intake: never Alcohol Intake Frequency:: holidays/special occasions only Substance Use Type: denies use Occupational Status: employed Housing: house Household Members: children Family Hx:: Asth
[2020-02-17 09:58] VITALS: BP 168/91; PULSE 88; RESP 18; TEMP 36.4; O2SAT 99; BMI 52.9
[2020-02-17 10:14] VITALS: BP 168/91; PULSE 88; RESP 21; TEMP 36.4; O2SAT 99
== END 2020-02-17 10:16 | disposition home or self-care (01) ==
PROVIDERS: Emergency Provider Nurse Practitioner Family; PCP Family Medicine
DX: H10.33 Unspecified acute conjunctivitis, bilateral (principal); I10 Essential (primary) hypertension; E03.9 Hypothyroidism, unspecified; R56.9 Unspecified convulsions; Z90.09 Acquired absence of other part of head and neck; R01.1 Cardiac murmur, unspecified; Z79.899 Other long term (current) drug therapy
CPT/HCPCS: 99201

== ENCOUNTER 2020-03-13 02:50 | Emergency (ER) | payer BC, SELFPAY ==
[2020-03-13 02:51] VITALS: BP 147/93; PULSE 99; RESP 18; TEMP 36.8; O2SAT 98; BMI 51.6
[2020-03-13 03:24] LABS: Basophils % 0.5 % (0.1-2.0); Eosinophils # 0.3 K/mm3 (0.0-0.4); Eosinophils % 3.9 % (0.1-12.0); Hematocrit 38.5 % (37.0-47.0); Hemoglobin 12.2 g/dL (12.2-16.2); Lymphocytes # 1.2 K/mm3 (0.7-4.5); Lymphocytes % 17.6 % (10-50); Mean Corpuscular HGB Conc 31.5 g/dL (31.8-35.4); Mean Corpuscular Hemoglobin 28.8 pg (27.0-31.2); Mean Corpuscular Volume 91.1 fl (81-99); Mean Platelet Volume 7.9 fl (7.4-10.4); Monocytes # 0.5 K/mm3 (0.1-1.0); Monocytes % 7.8 % (1.7-9.3); Neutrophils # 4.8 K/mm3 (1.8-7.8); Neutrophils % 70.1 % (37.0-80.0); Platelet Count 241 K/mm3 (142-424); Red Blood Count 4.23 M/mm3 (4.20-5.40); Red Cell Distribution Width 13.5 % (11.5-17.5); White Blood Count 6.8 K/mm3 (4.8-10.8)
[2020-03-13 03:49] LABS: Alanine Aminotransferase 35 U/L (12-78); Albumin Level 4.5 g/dl (3.5-5.0); Albumin/Globulin Ratio 0.9 (1.1-1.8); Alkaline Phosphatase 96 U/L (38-126); Anion Gap 12.8 mEq/L (5-15); Aspartate Amino Transferase 35 U/L (14-36); Bilirubin,Total 0.7 mg/dl (0.2-1.3); Blood Urea Nitrogen 22 mg/dl (7-17); Calcium 10.2 mg/dl (8.4-10.2); Carbon Dioxide 31 mmol/L (22.0-30.0); Chloride 101 mmol/L (98-107); Creatinine Clearance Estimated 58 mL/min (50-200); Estimated Glomerular Filt Rate 53 ml/min (>60); GFR (African American) 64 ML/MIN (>60); Glucose 159 mg/dl (74-100); Lactic Acid 1.5 mmol/L (0.7-2.1); Potassium 4.8 mmoL/L (3.5-5.1); Sodium 140 mmol/L (136-145); Total Protein,Serum 9.5 g/dl (6.3-8.2)
[2020-03-13 03:50] LABS: Erythrocyte Sedimentation Rate 65 mm/hr (0-20)
[2020-03-13 03:55] LABS: C-Reactive Protein 15.6 mg/L (0-4)
--- NOTE | 2020-03-13 04:44 | HMH.EDSKAF ---
ED Disposition Clinical Impression: Cellulitis Qualifiers: Site of cellulitis: extremity Site of cellulitis of extremity: lower extremity Laterality: left Qualified Code(s): L03.116 - Cellulitis of left lower limb Disposition: Home, Self-Care Condition on Discharge: Good Instructions: DI for Cellulitis -- Adult Additional Instructions: keep clean and use meds and see pcp for follow up Prescriptions: cephALEXin [Keflex 500mg Cap] 500 mg PO TID #30 cap Prescription Printed Referrals: Steven Galloway MD [Primary Care Provider] - - Critical Care Critical Care Time: No Attestation: On 03/13/20, the high probability of a clinically significant, sudden or life threatening deterioration of the following system(s) required my full and direct attention, intervention and personal management. The time I documented below is in addition to time spent performing reported procedures but includes the following listed in this critical care notation. Medical Decision Making - Medical Records Medical records reviewed: Yes: I reviewed the patient's medical records. - Tato Inquiry Pt receiving controlled substance: No Vital Signs: 03/13/20 02:51 Temperature 98.3 F Temperature Source Oral Pulse Rate [Right Radial] 99 H Respiratory Rate 18 Blood Pressure [Right Arm] 147/93 H Blood Pressure Mean [Right Arm] 111 Blood Pressure Source [Right Arm] Automatic Cuff Blood Pressure Position [Right Arm] Sitting 02 Sat by Pulse Oximetry 98 Oxygen Delivery Method Room Air - Lab Data Lab results reviewed: Yes: I reviewed the patient's lab results. Lab Results 03/13/20 03:18: WBC 6.8, RBC 4.23, Hgb 12.2, Hct 38.5, MCV 91.1, MCH 28.8, MCHC 31.5 L, RDW 13.5, Plt Count 241, MPV 7.9, Neut % (Auto) 70.1, Lymph % (Auto) 17.6, Harrison % (Auto) 7.8, Eos % (Auto) 3.9, Baso % (Auto) 0.5, Neut # (Auto) 4.8, Lymph # (Auto) 1.2, Harrison # (Auto) 0.5, Eos # (Auto) 0.3, Baso # (Auto) 0.0, ESR 65 H 03/13/20 03:30: Sodium 140, Potassium 4.8, Chloride 101, Carbon Dioxide 31 H, Anion Gap 12.8, BUN 22 H, Creatinine 1.10 H, Estimated Creat Clear 58, Estimated GFR 53 L, Est GFR ( Amer) 64, Glucose 159 H, Calcium 10.2, Total Bilirubin 0.7, AST 35, ALT 35, Alkaline Phosphatase 96, C-Reactive Protein 15.6 H, Total Protein 9.5 H, Albumin 4.5, Globulin 5.0 H, Albumin/Globulin Ratio 0.9 L 03/13/20 03:30: Lactate 1.5 Result diagrams: 03/13/20 03:18 03/13/20 03:30 Orders (Tests/Meds): ED MEDICATIONS Generic Name Dose Route Start Last Admin Trade Name Freq PRN Reason Stop Dose Admin Sodium Chloride 1,000 mls @ 999 mls/hr 03/13/20 03:30 03/13/20 03:30 Sod Chlor 0.9% 1000ml Bag IV 03/13/20 04:30 999 mls/hr .Q1H1M MARLON Administration ORDERS Category Date Time Status Blood Culture Stat Micro 03/13/20 03:26 Received Skin/Abscess/FB HPI - General Chief complaint: Skin/Abscess/Foreign Body Stated complaint: cellulitis left leg Time Seen by Provider: 03/13/20 03:30 Mode of Arrival: Ambulatory Source of Information: Patient Limitations: No Limitations Description of Symptoms (Recalled from ER Triage Doc. by RN): Pt c/o cellulitis in LLE. Pt states she noticed her leg was swelling when she removed her compression socks this am. LLE is red and hot to the touch. No other complaints reported to staff at this time. - History of Present Illness HPI narrative: reddness and swelling lt lower ext with hx of cellulitis - MD complaint: other (reddness lt lower ext ) Tetanus up to date: unsure Location: LLE Severity: moderate Associated symptoms: denies other symptoms Treatments prior to arrival: none - Related Data Home Medications Medication Instructions Recorded Confirmed Levocetirizine Dihydrochloride 5 mg PO DAILY 12/27/18 03/13/20 [Xyzal] Aspirin [Aspirin 81mg EC Tab] 81 mg PO DAILY 01/23/19 03/13/20 Lactobacillus Combo No.10 1 each PO DAILY 03/13/20 03/13/20 [Probiotic] Mv-Mn/Iron/Folic Acid/Herb 190 1
[2020-03-13 05:13] VITALS: BP 142/88; PULSE 89; RESP 18; TEMP 36.8; O2SAT 98
== END 2020-03-13 05:15 | disposition home or self-care (01) ==
PROVIDERS: Emergency Provider Emergency Medicine; PCP Family Medicine
DX: L03.116 Cellulitis of left lower limb; R56.9 Unspecified convulsions; E03.9 Hypothyroidism, unspecified; I10 Essential (primary) hypertension; Z79.899 Other long term (current) drug therapy
CPT/HCPCS: 80053; 83605; 85025; 85651; 86140; 87040; 96365; 96375; 99283

== ENCOUNTER 2020-05-31 11:17 | Emergency (ER) | payer BC, SELFPAY ==
--- NOTE | 2020-05-31 11:52 | HMH.EDUTC ---
[facility] [place] Clinical Impression: Exposure to COVID-19 virus Disposition: Home, Self-Care Condition on Discharge: Good Instructions: Preventing the Spread of Coronavirus Discharge Instructions Additional Instructions: Drink plenty of fluids. Take tylenol for pain or fever. Follow up with your regular doctor. GO TO THE ER FOR ANY WORSENING SYMPTOMS Referrals: Steven Galloway MD [Primary Care Provider] - Time of Disposition: 12:15 Medical Decision Making - Medical Records Medical records reviewed: No: I reviewed the patient's medical records. - Tato Inquiry Pt receiving controlled substance: No Vital Signs: 05/31/20 11:55 05/31/20 12:53 Temperature 98.2 F 98.2 F Temperature Source Oral Pulse Rate 82 Pulse Rate [Left] 82 Respiratory Rate 19 19 Blood Pressure 151/96 H Blood Pressure [Right Arm] 151/96 H Blood Pressure Mean [Right Arm] 114 Blood Pressure Source [Right Arm] Automatic Cuff Blood Pressure Position [Right Arm] Sitting 02 Sat by Pulse Oximetry 96 Oxygen Delivery Method Room Air Orders (Tests/Meds): ORDERS Category Date Time Status Covid-19 Nasal PCR Sendout P&C Stat Lab 05/31/20 11:44 Received [facility] [place] HPI - General Stated complaint: covid exposure Time Seen by Provider: 05/31/20 11:52 - History of Present Illness Provider Complaint: She states she has been exposed to covid-19 by a family member. AT this time, she denies any symptoms. She has multiple comorbities that would make covid-19 by very hard on her. - Related Data Home Medications Medication Instructions Recorded Confirmed Levocetirizine Dihydrochloride 5 mg PO DAILY 12/27/18 03/13/20 [Xyzal] Aspirin [Aspirin 81mg EC Tab] 81 mg PO DAILY 01/23/19 03/13/20 Lactobacillus Combo No.10 1 each PO DAILY 03/13/20 03/13/20 [Probiotic] Mv-Mn/Iron/Folic Acid/Herb 190 1 each PO DAILY 03/13/20 03/13/20 [Vitamin D3 Complete Caplet] Previous Rx's Medication Instructions Recorded cephALEXin [Keflex 500mg Cap] 500 mg PO TID #30 cap 03/13/20 carvedilol 3.125 mg tablet 3.125 mg PO BID #60 tab 03/28/20 spironolactone 25 mg tablet 25 mg PO DAILY #30 tab 03/28/20 Allergies Allergy/AdvReac Type Severity Reaction Status Date / Time No Known Allergies Allergy Verified 05/31/20 11:59 [facility] History - Hepatitis A Screen Attestation statement:: This patient has been screened for Hepatitis A risk factors. I have reviewed the patient's past medical history: Yes Medical History: Reports:: Congestive Heart Failure, Heart Murmur, Hypertension, Renal Disease, Seizures Denies:: Cancer, Diabetes Mellitus Type 1, Diabetes Mellitus Type 2, Internal Pacemaker, MRSA Other Medical History: Reports: Hypothyroidism Laterality Cases: Bilateral: Tonsillectomy Other Surgeries: Yes: Tubal Ligation. No: Pacemaker Amputation: No Fractures: No - Social History Smoking Status: Never smoker Tobacco Type: cigarettes #Yrs smoked (if former smoker): 10 Alcohol Intake: never Alcohol Intake Frequency:: holidays/special occasions only Substance Use Type: denies use Occupational Status: employed Housing: house Household Members: children Family Hx:: Asthma, Coronary Artery Disease, Diabetes, Heart Attack, Hyperlipidemia, Hypertension, Tuberculosis Comment: Father- of [place]@60's. Mother-CAD,stents@60's. Brother-[place]@38, CABG. Brother-AFIB@40's ROS Obtained: Yes All systems reviewed & no additional complaints - Constitutional Constitutional: Reports system reviewed and no additional complaints, except as docu - Eyes Eyes: Reports system reviewed and no additional complaints, except as docu - ENT Ears, Nose, Mouth, and Throat: Reports system reviewed and no additional complaints, except as docu - Cardiovascular Cardiovascular: Reports system reviewed and no additional complaints, except as docu - Respiratory Respiratory: Yes system reviewed and no additional complaints, except as
[2020-05-31 11:55] VITALS: BP 151/96; PULSE 82; RESP 19; TEMP 36.8; O2SAT 96; BMI 48.9
[2020-05-31 12:53] VITALS: BP 151/96; PULSE 82; RESP 19; TEMP 36.8; O2SAT 96
[2020-06-01 09:59] LABS: Covid-19 Nasal PCR Sendout P&C Negative
== END 2020-05-31 12:54 | disposition home or self-care (01) ==
PROVIDERS: Emergency Provider Nurse Practitioner Family; PCP Family Medicine
DX: Z20.828 Contact with and (suspected) exposure to other viral communicable diseases (principal); I10 Essential (primary) hypertension; I50.9 Heart failure, unspecified; N28.9 Disorder of kidney and ureter, unspecified; E03.9 Hypothyroidism, unspecified; R01.1 Cardiac murmur, unspecified; Z79.899 Other long term (current) drug therapy
CPT/HCPCS: 99201; U0004

== ENCOUNTER → 2021-06-28 15:28 | Outpatient (CLI) | payer BC, SELFPAY ==
--- NOTE | 2021-06-28 15:30 | MM_ITS ---
PROCEDURE INFORMATION: Exam: MG Bilateral Screening 3D Mammography Exam date and time: 06/28/2021 3:30 PM Age: 50 years old Clinical indication: Encounter for screening mammogram for malignant neoplasm of breast TECHNIQUE: Imaging protocol: Bilateral Screening tomosynthesis and 2D mammography including computer-aided detection (CAD) when performed. COMPARISON: No relevant prior studies available. FINDINGS: MAMMOGRAPHY: Breast composition: There are scattered areas of fibroglandular density. Mass: No suspicious masses. Architectural distortion: No suspicious distortion. Calcifications: No suspicious calcifications. Asymmetric density: None. Skin thickening: None. Axillary adenopathy: None. IMPRESSION: No mammographic evidence of malignancy. Annual screening is recommended unless otherwise clinically indicated. ASSESSMENT: BI-RADS Category 1: Negative
== END ==
PROVIDERS: PCP Family Medicine; Visit Provider Family Medicine
DX: Z12.31 Encounter for screening mammogram for malignant neoplasm of breast (principal)
CPT/HCPCS: 77063; 77067

== ENCOUNTER → 2022-02-14 12:15 | Outpatient (CLI) | payer BC, SELFPAY ==
--- NOTE | 2022-02-14 12:21 | XR_ITS ---
FINAL REPORT CLINICAL HISTORY: COVID TESTING COMPARISON: 01/20/2019 FINDINGS: A single view of the chest was obtained. The heart is enlarged. The mediastinum is unremarkable. There are mild bibasilar opacities which may represent atelectasis or pneumonia. There is no pleural effusion. There is no pneumothorax. There is no acute osseous abnormality. IMPRESSION: Mild bibasilar opacities may represent atelectasis or pneumonia. Reviewed, Interpreted and Dictated by Armando Correa III, MD Transcribed by Alisson Snyder Authenticated and [facility]
[2022-02-14 13:11] LABS: Basophils # 0.1 K/mm3 (0-0.2); Basophils % 1.4 % (0.1-2.0); Eosinophils # 0.3 K/mm3 (0.0-0.4); Eosinophils % 2.9 % (0.1-12.0); Hematocrit 44.1 % (37.0-47.0); Hemoglobin 14.3 g/dL (12.2-16.2); Lymphocytes # 1.7 K/mm3 (0.7-4.5); Lymphocytes % 19.9 % (10-50); Mean Corpuscular HGB Conc 32.4 g/dL (31.8-35.4); Mean Corpuscular Volume 89.6 fl (81-99); Mean Platelet Volume 8.6 fl (7.4-10.4); Monocytes # 0.7 K/mm3 (0.1-1.0); Monocytes % 8.5 % (1.7-9.3); Neutrophils # 5.8 K/mm3 (1.8-7.8); Neutrophils % 67.3 % (37.0-80.0); Platelet Count 329 K/mm3 (142-424); Red Blood Count 4.92 M/mm3 (4.20-5.40); Red Cell Distribution Width 13.5 % (11.5-17.5); White Blood Count 8.6 K/mm3 (4.8-10.8)
== END ==
PROVIDERS: PCP Physician Assistant; Visit Provider Physician Assistant
DX: Z20.822 Contact with and (suspected) exposure to COVID-19 (principal)
CPT/HCPCS: 36415; 71045; 85025; C9803; U0003; U0005

== ENCOUNTER 2022-05-08 14:47 | Emergency (ER) | payer BC, SELFPAY ==
--- NOTE | 2022-05-08 14:45 | ECG_ITS ---
APPROVED REPORT Exam: Resting ECG HR:111 bpm ECG Measurements Heart Rate 111 AXES WV 162 P 70 QRSd 94 QRS 77 QT 284 T 43 QTc 350 Conclusion SINUS TACHYCARDIA SEPTAL MYOCARDIAL INFARCTION , PROBABLY OLD [40+ ms Q WAVE IN V1/V2] ABNORMAL ECG UNCONFIRMED REPORT Electronically signed by : You Roland MD 05/09/2022 21:54:49
[2022-05-08 14:48] VITALS: BP 170/88; PULSE 108; RESP 26; TEMP 36.7; O2SAT 99; BMI 51.6
--- NOTE | 2022-05-08 14:55 | XR_ITS ---
FINAL REPORT CLINICAL HISTORY: dyspnea COMPARISON: February 2022 FINDINGS: SINGLE VIEW CHEST The heart size is enlarged. The mediastinum is within normal limits.There is mild pulmonary vascular congestion. No acute pulmonary abnormality is identified. There is no evidence of pneumothorax. The bony thorax is intact. IMPRESSION: Cardiomegaly with mild pulmonary vascular congestion.. Reviewed, Interpreted and Dictated by Armando Correa III, MD Transcribed by Pa Cotton Authenticated and [facility]
[2022-05-08 14:56] VITALS: PULSE 108
[2022-05-08 15:01] VITALS: BP 161/89; PULSE 101; RESP 20; O2SAT 97
[2022-05-08 15:04] LABS: Chloride 100 mmol/L (98-107); Sodium 134 mmol/L (136-145)
[2022-05-08 15:06] LABS: Alanine Aminotransferase 64 U/L (12-78); Aspartate Amino Transferase 59 U/L (14-36); Blood Urea Nitrogen 14 mg/dl (7-17); Creatinine Clearance Estimated 69 mL/min (50-200); Estimated Glomerular Filt Rate 66 ml/min (>60); GFR (African American) 80 ML/MIN (>60)
[2022-05-08 15:07] LABS: Albumin Level 4.2 g/dl (3.5-5.0); Albumin/Globulin Ratio 1.1 (1.1-1.8); Alkaline Phosphatase 98 U/L (38-126); Bilirubin,Total 0.8 mg/dl (0.2-1.3); Calcium 10.2 mg/dl (8.4-10.2); Carbon Dioxide 29 mmol/L (22.0-30.0); Globulin 3.9 g/dL (1.3-3.2); Glucose 160 mg/dl (74-100); Total Protein,Serum 8.1 g/dl (6.3-8.2)
[2022-05-08 15:19] LABS: Troponin I < 0.01 ng/ml (0.00-0.034)
[2022-05-08 15:49] LABS: Basophils # 0.1 K/mm3 (0-0.2); Basophils % 0.8 % (0.1-2.0); Eosinophils # 0.2 K/mm3 (0.0-0.4); Eosinophils % 2.3 % (0.1-12.0); Hematocrit 44.5 % (37.0-47.0); Hemoglobin 14.4 g/dL (12.2-16.2); Lymphocytes # 1.1 K/mm3 (0.7-4.5); Lymphocytes % 13.6 % (10-50); Mean Corpuscular HGB Conc 32.4 g/dL (31.8-35.4); Mean Corpuscular Hemoglobin 28.6 pg (27.0-31.2); Mean Corpuscular Volume 88.1 fl (81-99); Mean Platelet Volume 8.3 fl (7.4-10.4); Monocytes # 0.6 K/mm3 (0.1-1.0); Monocytes % 7.1 % (1.7-9.3); Neutrophils # 6.4 K/mm3 (1.8-7.8); Neutrophils % 76.2 % (37.0-80.0); Platelet Count 402 K/mm3 (142-424); Red Blood Count 5.05 M/mm3 (4.20-5.40); Red Cell Distribution Width 13.6 % (11.5-17.5); White Blood Count 8.4 K/mm3 (4.8-10.8)
--- NOTE | 2022-05-08 15:53 | HMH.EDGENADL ---
Discharge Plan Disposition Patient Disposition: Home, Self-Care Condition: Good Prescriptions Prescriptions: New benzonatate 150 mg capsule 150 mg PO BID Qty: 60 0RF No Action furosemide [Lasix] 40 mg tablet 40 mg PO DAILY Qty: 30 2RF valsartan 160 mg tablet 160 mg PO DAILY Qty: 30 5RF carvedilol 3.125 mg tablet 3.125 mg PO BID Qty: 60 0RF Rx Instructions: Will need APPT for further refills spironolactone 25 mg tablet 25 mg PO DAILY Qty: 30 0RF Rx Instructions: Will need appt for further refills aspirin 81 MG tablet,delayed release (DR/EC) 81 mg PO DAILY lactobacillus comb no.10 1 EACH capsule 1 each PO DAILY [id number]-herbal cmplx#190 1 EACH tablet 1 each PO DAILY Referrals Follow up/Referrals: Jose Rae MD [Staff Physician] - See instructions (Heart failure) Provider,MD Yfn [Primary Care Provider] - See instructions Activity Restrictions/Add. Instructions Additional Instructions/Restrictions: Please follow-up with your primary care physician as needed. You have also been prescribed a referral to cardiology for your heart failure. Please continue to take your spironolactone daily as well as her carvedilol. Please return to the emergency department if your chest pain or shortness of breath reoccurs as you may require further imaging to rule out blood clots if symptoms reoccur. Clinical Impressions Clinical Impression: CHF (congestive heart failure), COVID-19 Instructions Patient Instructions: DI for Heart Failure, DI for COVID-19 (Suspected or Confirmed ) Print Language Print Language: Irish Discharge ED Provider: Etelvina Rajan General Adult HPI General Chief complaint: Chest Pain Stated complaint: chest pain Time Seen by Provider: 05/08/22 14:55 Mode of Arrival: Ambulatory Source of Information: Patient Limitations: No Limitations Description of Symptoms (Recalled from ER Triage Doc. by RN): c/o chest fullness with coughing and soa. States her soa has been since she had covid 11 days ago, she was coughing all night last night and then chest fullness started today. History of Present Illness HPI narrative: Miss Schwab is a 51 yo femlae w/ PMH for CHF diastolic dysfunction, CKD, HTN, aortic stenosis presenting to the ED for cough and soa, since being diagnosed w/ COVID 11 days prior. Patient reports non productive cough and chest fullness which progressively worsened today. She denies any fevers or other infectious symptoms. Patient reports she is eating and rinking per usual. She has tried taking over the counter nyquil with no relief in her cough. She denies chest pain. No LE swelling or abdominal swelling. complaint: cough and dyspnea Onset (ago): day(s) Related Data Home Medications Medication Instructions Recorded Confirmed aspirin 81 mg tablet,delayed 81 mg PO DAILY Heart disease 01/23/19 05/10/22 release lactobacillus comb no.10 20 1 each PO DAILY Supplement 03/13/20 05/10/22 billion cell capsule multivit with 1 each PO DAILY Supplement 03/13/20 05/10/22 [id number] 18 mg iron-800 mcg-150 mg tablet Previous Rx's Medication Instructions Recorded carvedilol 3.125 mg tablet 3.125 mg PO BID High blood 03/28/20 pressure #60 tabs spironolactone 25 mg tablet 25 mg PO DAILY Fluid #30 tabs 03/28/20 benzonatate 150 mg capsule 150 mg PO BID #60 caps 05/08/22 furosemide 40 mg tablet (Lasix) 40 mg PO DAILY #30 tabs 05/10/22 valsartan 160 mg tablet 160 mg PO DAILY #30 tabs 05/10/22 Allergies Allergy/AdvReac Type Severity Reaction Status Date / Time No Known Allergies Allergy Verified 05/10/22 09:10 [facility] Disclaimer: The information contained in this section may have been updated after the patient was seen, as this information can be updated by other users. Medical History Aortic stenosis CHF (congestive heart failure) CKD
[2022-05-08 17:01] VITALS: BP 146/86; PULSE 105; RESP 20; TEMP 36.7; O2SAT 98
== END 2022-05-08 17:06 | disposition home or self-care (01) ==
PROVIDERS: Emergency Provider Student in an Organized Health Care Education/Training Program
DX: R07.9 Chest pain, unspecified (principal); R06.02 Shortness of breath; Z86.16 Personal history of COVID-19; I13.0 Hypertensive heart and chronic kidney disease with heart failure and stage 1 through stage 4 chronic kidney disease, or unspecified chronic kidney disease; I50.30 Unspecified diastolic (congestive) heart failure; N18.9 Chronic kidney disease, unspecified; I35.0 Nonrheumatic aortic (valve) stenosis; I34.0 Nonrheumatic mitral (valve) insufficiency; Z79.899 Other long term (current) drug therapy; Z82.49 Family history of ischemic heart disease and other diseases of the circulatory system
CPT/HCPCS: 71045; 80053; 84484; 85025; 93005; 99284

== ENCOUNTER → 2022-05-17 10:02 | Outpatient (CLI) | payer BC, SELFPAY ==
--- NOTE | 2022-05-17 10:03 | CA_ITS ---
APPROVED REPORT EXAM: Comprehensive 2D, Doppler, and color-flow Echocardiogram Analyst Microbiology Lab: Nilda Fair RVT Ht: 5 ft 6 in Wt: 332lbs BSA: 2.48 BP: 174/107 mmHg Indications: SOA,HX COVID 04/24,LISBET CAD,OBESITY,HTN,MILD ,?FLUID AROUND HEART ON XRAY TDS-BEST EXAM R/T PT BODY HABITUS 2D Dimensions LVOT 2.18 cm (M/F) 1.5-2.5 LA Volume 88.30 mL LA Volume Index 35.60 mL/m2 (M/F) 16-34 M-Mode Dimensions RVDd 2.04 cm (0.9-2.6) LA Diam 4.49 cm (1.9-4.0) LVDd 3.65 cm (3.5-5.7) Ao Diam 2.52 cm (2.0-3.7) LVDs 1.61 cm (3.5-5.7) IVSd 1.18 cm (0.6-1.1) PWd 1.29 cm (0.6-1.1) EF (Teich) 87.00% FS 55.90% EDV (Teich) 56.30 mL TAPSE 1.84 (<1.7) ESV (Teich) 7.30 mL LV Diastology E Decel Time 297.00 (160-240 msec) E/A Ratio 1.1 MED E' 4.70 (< 7 cm/sec) E'/MED E' Ratio 29.66 (>14) LAT E' 5.50 (<10 cm/sec) E/LAT E' Ratio 25.35 (>14) Aortic Valve LVOT Max 116.00 (70-110 cm/s) LVOT VTI 27.55 cm AoV Peak Brian. 345.00 (50-130 cm/s) AO Peak GR. 47.80 mmHg AO Mean GR. 25.90 (<5 mmHg) AO VTI 69.87 (18-25 cm) JAYLEN (VTI) 1.47 (2.5-4.5 cm2) Mitral Valve MV E Max Brian. 139.00 (40-130 cm/s) MV A Velocity 125.00 (40-130 cm/s) E/A Ratio 1.11 MV Decel. Time 297.00 (160-240 ms) MV Mean Gr. 5.60 (<2mmHg) MV PHT 87.00 ms Pulmonary Valve PV Peak Velocity 102.00 (50-150 cm/s) Tricuspid Valve TR P. Velocity 300.00 cm/s RAP Estimate 10.00 mmHg RVSP 46.00 mmHg Left Ventricle Left atrium is mildly enlarged, left ventricle is normal size mild concentric left ventricular hypertrophy, estimated ejection fraction 55% with no regional wall motion abnormality. Diastolic parameters are inconclusive. Right Ventricle Right atrium and right ventricle are mildly enlarged with normal contractility. Aortic Valve Aortic valve is thickened and calcified morphology is not well visualized, the maximum aortic outflow velocity = 3.5 m/s resulting in a mean gradient across aortic valve of 26 mmHg, valve area is calculated 1.5 cm???. There is no significant aortic insufficiency. Mitral Valve Mitral valve has mitral annular calcification which extends in both anterior and posterior mitral leaflet, the mean gradient across mitral valve is 5 mmHg, valve area is 2.4 cm??? by pressure half-time indicates mild mitral stenosis. There is mild mitral regurgitation. Tricuspid Valve Tricuspid valve grossly normal, there is mild tricuspid regurgitation, tricuspid regurgitation jet velocity is inadequate for calculation of the right ventricular systolic pressure. Pulmonic Valve Pulmonic valve is poorly visualized. Great Vessels Aortic root is normal size. Inferior vena cava is poorly visualized. Pericardium No significant pericardial effusion noted. Conclusion 1. Biatrial enlargement, normal left ventricular size, mild concentric left ventricular hypertrophy, estimated ejection fraction 55% with no regional wall motion abnormality. Diastolic parameters are inconclusive. 2. Thickened and calcified aortic valve with mean gradient across aortic valve of 26 mmHg, valve area is 1.5 cm???, there is no aortic insufficiency. 3. Abnormal mitral valve as described above, mean gradient across valve is 5 mmHg, valve area is 2.4 cm???, there is mild mitral regurgitation. 4. No significant pericardial effusion noted. 5. Inferior vena cava is poorly visualized. Electronically signed by : Nas Ennis MD 05/18/2022 10:43:50
[2022-05-17 11:46] LABS: Anion Gap 12.3 mEq/L (5-15); Blood Urea Nitrogen 19 mg/dl (7-17); Calcium 9.9 mg/dl (8.4-10.2); Carbon Dioxide 30 mmol/L (22.0-30.0); Chloride 100 mmol/L (98-107); Estimated Glomerular Filt Rate 66 ml/min (>60); GFR (African American) 80 ML/MIN (>60); Glucose 143 mg/dl (74-100); Potassium 4.3 mmoL/L (3.5-5.1); Sodium 138 mmol/L (136-145)
== END ==
LOC: RT 10:03
PROVIDERS: PCP Family Medicine; Visit Provider Physician Assistant
DX: R06.00 Dyspnea, unspecified (principal); I25.10 Atherosclerotic heart disease of native coronary artery without angina pectoris; I10 Essential (primary) hypertension; I51.89 Other ill-defined heart diseases; N18.9 Chronic kidney disease, unspecified; R94.31 Abnormal electrocardiogram [ECG] [EKG]
CPT/HCPCS: 36415; 80048; 93306

== ENCOUNTER → 2022-06-25 15:29 | Outpatient (CLI) | payer BC, SELFPAY ==
--- NOTE | 2022-06-25 | CA_ITS ---
FINAL REPORT CLINICAL HISTORY: Patient states she has a knot on the medial aspect mid calf of RLE. States she is currently being treated for cellulitis in this leg. HTN, HLD, morbid obesity. Limited scan secondary to body habitus. FINDINGS: DUPLEX VENOUS SONOGRAPHY OF THE Right LOWER EXTREMITY Multiple transverse and longitudinal scans were performed of the femoropopliteal deep venous system, with augmentation and compression maneuvers. FINDINGS: Normal phasic flow was noted in the visualized deep venous system. No intraluminal increased echogenicity is noted to suggest thrombus. There is normal compression and augmentation of the venous structures. No abnormal venous collaterals are seen. IMPRESSION: No evidence of deep venous thrombosis of the right lower extremity. Reviewed, Interpreted and Dictated by Maral Salmeron MD Transcribed by Pa Cotton Authenticated and [facility]
== END ==
LOC: RT 15:30
PROVIDERS: PCP Family Medicine; Visit Provider Nurse Practitioner Family
DX: M79.604 Pain in right leg (principal)
CPT/HCPCS: 93971

== ENCOUNTER 2023-08-14 15:59 | Outpatient (CLI) | payer BC, SELFPAY ==
--- NOTE | 2023-08-14 16:03 | MM_ITS ---
PROCEDURE INFORMATION: Exam: MG Bilateral Screening 3D Mammography Exam date and time: 08/14/2023 3:50 PM Age: 53 years old Clinical indication: Screening. No family history of breast cancer. TECHNIQUE: Imaging protocol: Bilateral Screening tomosynthesis and 2D mammography including computer-aided detection (CAD) when performed. COMPARISON: MG MM DIG SCREENING MAMM BI W/CAD 06/28/2021 3:25 PM FINDINGS: MAMMOGRAPHY: Breast composition: There are scattered areas of fibroglandular density. Mass: None. Architectural distortion: None. Calcifications: No suspicious calcifications. Asymmetric density: None. Skin thickening: None. Axillary adenopathy: None. IMPRESSION: No mammographic evidence of malignancy. Annual screening is recommended unless otherwise clinically indicated. ASSESSMENT: BI-RADS Category 1: Negative
== END 2023-08-14 23:59 ==
LOC: RAD 15:59
PROVIDERS: PCP Family Medicine; Visit Provider Physician Assistant
DX: Z12.31 Encounter for screening mammogram for malignant neoplasm of breast (principal)
CPT/HCPCS: 77063; 77067

== ENCOUNTER 2024-11-20 15:17 | Outpatient (CLI) | payer BC, SELFPAY ==
--- OUTSIDE RECORDS SUMMARY | 2024-03-19 11:30 | XMS_ITS ---
Author Organization [facility] Address [address] [facility] [address] [place], [place] [id number] Care Team Providers Care Plant Maintenance Worker Name Role Phone Lisha Galloway Primary Care Provider Odette Young Unavailable [phone] Allergies No Known Allergies Results Component Value Reference Range Notes Glycohemoglobin A1c (in hous e) Reviewed date:03/20/2024 08:55:38 AM Interpretation:5.9% Performing Lab: Notes/Report: 5.9% glycohemoglobin 5.9% 5 - 6.5 % P-Comprehensive Metabolic Pa laura (CMP) Reviewed date:03/31/2024 11:48:27 AM Interpretation:Cr 1.13, gfr 58, alk phos 122 Performing Lab: Notes/Report: Test performed by [facility] [address] [place] [address] , [address], [place] [address] Agapito Veras MD, Deck Hand CLIA: [id number] Sodium 138 135-145 mmol/L Potassium 4.5 3.5-5.3 [...] 0.6 <0.2-1.2 mg/dL A/G Ratio 1.2 1.1-2.5 REASON FOR VISIT 3 month f/u, Needs labs, colon cancer screening, & shingles vaccine Medications Medication SIG (Take, Route, Frequency, Duration) Notes Start Date End Date Status Furosemide 40 MG 1 tab(s) orally once a day for 90 days Active Carvedilol 3.125 MG 1 tab(s) orally 2 ti mes a day for 90 days Active Atorvastatin Calcium 20 MG TAKE 1 TABLET BY MOUTH EVERY DAY for 30 Active Spironolactone 25 MG TAKE 1 TABLET BY MO UTH DAILY for 30 Active Mounjaro 7.5 MG/0.5ML 7.5 mg Subcutaneou s once a week 02/12/2024 Active Valsartan 160 MG 1 tab(s) orally once a day for 90 days Active Vitamin D3 125 MCG (5000 UT) 1 cap(s) orally once a day for 30 day(s) Active Aspirin Adult Low Dose 81 MG 1 tab(s) orally once a day for 30 day(s) Active Xyzal Allergy 24HR 5 MG 1 tab(s) orally once a day (in the evening) for 30 day(s) Active Problems Problem Type SNOMED Code ICD Code Onset Dates Problem Status W/U Status Risk Notes Problem Hyperlipidemia due to type 2 diabetes mellitus (disorder) (474236001147144) Hyperlipidemia associated with type 2 diabetes mellitus (E11.69) Active confirmed Vital Signs Blood pressure systolic 136 mm Hg 03/19/20 24 Blood pressure diastolic 80 mm Hg 024 Heart Rate 102 /min 03/19/2024 Height 65 in 03/19/2024 Weight 314.6 lbs 03/19/2024 BMI 52.35 kg/m2 03/19/2024 Encounters Encounter Location Date Provider Diagnosis [facility] [address] [facility] [address], [place] [id number] 03/19/2024 Odette Young Type 2 diabetes mellitus [...] she has just not done it yet. Pending Test Test Name Order Date P-Microalbumin/Creatinine, Random Urine Sample 03/19/2024 Next Appt Details Follow Up: via phone to repo rt test results, Reason: Provider Name:Odette Stephen y, 02/11/2025 03:30:00 PM, [address] [facility] [address], [address], [place], [place], [id number], Progress Notes * AMANDEEP MTZJONNAB:1970 ( 54 yo F)Acc No.[id number]:03/19/2024 Progress Notes Patient: BLACK COHEN Provider: TORI iWley :1970 A ge:53 Y S ex:Female Date:03/19/2024 Address:[address] [place] [id number] Pcp:Lisha Galloway Subjective: * Chief Complaints: * [...] . * Hospitalization/Major Diagno stic Procedure: C ellulitis LLE, Lymphedemia, Strep Infection in blood, Hypotension; Sepsis- [facility] 12/2018, Acute Congestive Heart Failure, Cellulitis Hypertension, PRES- 01/06-, Rehabilitation for Stay- [facility] 01/14-. * Family History: F ather: 68 [...] G eneral Examination: General Appearance: N AD. Chest: n ormal shape and expansion. Heart: R SR. Lungs: c lear to auscultation. Abdomen: bowel sounds present, soft and nontender, no organomegaly or masses. Extremities: trace leg edema. Assessment: * Assessment: 1. T ype 2 diabetes mellitus without complication, without long-term current use of insulin - E11.9 (Primary) Plan: * Treatment: ?LAB: P-Comprehensive Metabolic Panel (CMP) (Collection Date & Time - 03/19/2024 04:00 PM)?Cr 1.13, gfr 58, alk phos 122* Value Reference Range A /G Ratio 1.2 [...] intake and recheck a BMP in 2 Stefany Espinoza 03/31/2024 11:11:06 AM > Left message for return Stefany Rucker 03/31/2024 11:48:17 AM > Pt informed ?LAB: Glycohemoglobin A1c (in house) (Collection Date & Time - 03/19/2024)? 5.9%* Value Reference Range g lycohemoglobin 5.9% 5 - 6.5 % * Carole Sanches 03/19/2024 5:2 0:34 PM >Odette Young 03/20/2024 8:55:35 AM > see TE Notes: Will check labs and urine. She has a cologuard at home she has just not done it yet.? * Procedure Codes: [address] [place], [address] CAPILLARY BLOOD DRAW, [address] GLYCATED HEMOGLOBIN TEST, Modifiers: QW * Follow Up: v ia phone to report test results * Billing Information: * Visit Code: 41395 Office Visit, Est Pt., Level 3. * Procedure Codes: [address] [place]. [address] CAPILLARY BLOOD DRAW. [address] GLYCATED HEMOGLOBIN TEST. Modifiers: QW * Electronic signature of TORI Galdamez on 11/20/2024 at 03:20 PM EDT Sign off status: Pending * Provider: TORI Wiley Date: 1 Generated for Violetta mcdowell/Shine/eTransmitting on: 0 11/20/2024 03:20 PM EDT History and Physical Notes * [...]
--- OUTSIDE RECORDS SUMMARY | 2024-08-07 09:15 | XMS_ITS ---
Author Organization [facility] Address [address] [facility] [address] [place], [place] [id number] Care Team Providers Care El Teacher Name Role Phone Lisha Galloway Primary Care Provider [phone] RalfOdette sheehan Unavailable [phone] Allergies No Known Allergies Results Component Value Reference Range Notes Glycohemoglobin A1c (in hous e) Reviewed date:08/13/2024 04:38:48 PM Interpretation:5.5% Performing Lab: Notes/Report: 5.5% glycohemoglobin 5.5% 5 - 6.5 % P-Comprehensive Metabolic Pa laura (CMP) Reviewed date:08/13/2024 04:38:48 PM Interpretation:Cr 1.05 Performing Lab: Notes/Report: Test performed by [facility] [address] [place] [address] , [address], [place] [address] Agapito Veras MD, Crinkling Machine Operator CLIA: [id number] Sodium 138 135-145 mmol/L Potassium 4.9 3.5-5.3 [...] 3.9 Performing Lab: Notes/Report: Test performed by [facility] [address] , [place] [address] Agapito Veras MD, Crinkling Machine Operator CLIA: [id number] Cholesterol 201 <200 mg/dL Triglycerides 189 <150 [...] Interpretation:Normal Performing Lab: Notes/Report: Test performed by [facility] [address] [place] [address] , [address] , [place] [address] Agapito Veras MD, Crinkling Machine Operator CLIA: [id number] TSH reflex to FT4 2.90 0.43-5.25 mU/L Mammogram (Not yet reviewed by provider) Interpretation:another ordered Performing Lab: Notes/Report: another ordered REASON FOR VISIT 3 month check, Needs labs, mammogram, colon cancer screening, & shingles vaccine Medications Medication SIG (Take, Route, Frequency, Duration) Notes Start Date End Date Status Spironolactone 25 MG 1 tablet Orally Onc e a day for 90 days Active Carvedilol 3.125 MG 1 tab(s) orally 2 ti mes a day for 90 days Active Mounjaro 12.5 MG/0.5ML 12.5 mg Subcutane ous once a week 07/01/2024 Active Furosemide 40 MG 1 tab(s) orally once a day for 90 days Active Atorvastatin Calcium 20 MG 1 tablet Oral ly Once a day for 90 days Active Vitamin D3 125 MCG (5000 UT) 1 cap(s) orally once a day for 30 day(s) Active Aspirin Adult Low Dose 81 MG 1 tab(s) orally once a day for 30 day(s) Active Xyzal Allergy 24HR 5 MG 1 tab(s) orally once a day (in the evening) for 30 day(s) Active Valsartan 160 MG 1 tab(s) orally once a day for 90 days Active Vital Signs Blood pressure systolic 140 mm Hg 08/08/19 25 Blood pressure diastolic 70 mm Hg 025 Heart Rate 82 /min 08/07/2024 Height 65 in 08/07/2024 Weight 313.4 lbs 08/07/2024 BMI 52.15 kg/m2 08/07/2024 Encounters Encounter Location Date Provider Diagnosis [place] [address] [place] [id number] 08/07/2024 Odette Young Type 2 diabetes gareth [...] week Pending Test Test Name Order Date Mammogram 08/07/2024 Cologuard 08/07/2024 Next Appt Details Follow Up: via phone to repo rt test results, Reason: Provider Name:Odette davis, 02/11/2025 03:30:00 PM, [address], [address], [place], [id number], Progress Notes * MARIELLE MTZ:1970 ( 54 yo F)Acc No.[id number]:08/07/2024 Progress Notes Patient: BLACK COHEN Provider: TORI Wiley :1970 A ge:54 Y S ex:Female Date:08/07/2024 Address:[address] [place] [address] [id number] Pcp:Lisha Galloway Subjective: * Chief Complaints: * [...] Lymphedemia, Strep Infection in blood, Hypotension; Sepsis- [facility] 12/2018, Acute Congestive Heart Failure, Cellulitis Hypertension, PRES- 01/06-, Rehabilitation for Stay- [facility] 01/14-. * Family History: F ather: [...] Temp:98.4, BP:140/70, HR:82, O2 Sat:96% on RA, Nurse:[facility], Ht: 65, Repeat BP:120/68, BMI:52.15. * Examination: G eneral Examination: General Appearance: N AD. HEENT: u nremarkable. Oral cavity: n o lesions, mucosa moist and WNL, no erythema. Neck: s upple, no lymphadenopathy. Chest: n ormal shape and expansion. Heart: R SR. Lungs: c lear to auscultation. Abdomen: bowel sounds present, soft and nontender. Neurologic Exam: I ntact, gait normal. Skin: n ormal, no rash. Peripheral pulses: n ormal (2+) bilaterally. Extremities: 2+ leg edema. Assessment: * Assessment: 1. T ype 2 diabetes mellitus without complication, without long-term current use of insulin - E11.9 (Primary) 2 . C olon cancer screening - Z12.11 3 . S creening mammogram, encounter for [...] Puckett 08/10/2024 9:25:37 AM > faxed to [facility] Radha [place] 11/16/2024 10:32:49 AM EDT >no record, another one ordered 4.?Morbid obesity?LAB: P-TSH reflex to FT4 (Collection Date & Time - 08/07/2024 12:45 PM)? Normal* Value Reference Range T SH reflex to FT4 2.90 0.43-5.25 - mU/L * Odette Young 08/13/2024 4: 38:40 PM [...] riglycerides 189 H <150 - mg/dL * Odette Young 08/13/2024 4: 38:40 PM > see TE * Procedure Codes: 8 3036 GLYCATED HEMOGLOBIN TEST, Modifiers: QW , 3044F HG A1C LEVEL LT 7.0%, 3074F SYST BP LT 130 MM HG, 3078F DIAST BP < 80 MM HG * Follow Up: v ia phone to report test results * Billing Information: * Visit Code: 02937 Office Visit, Est Pt., Level 4. * Procedure Codes: 82874 GLYCATED HEMOGLOBIN TEST. Modifiers: QW 3044F HG A1C LEVEL LT 7.0%. 3074F SYST BP LT 130 MM HG. 3078F DIAST BP < 80 MM HG. * Electronic signature of TORI Galdamez on 11/20/2024 at 03:20 PM EDT Sign off status: Pending * Provider: TORI Wiley Date: 0 08/07/2024 Generated for Violetta mcdowell/Shine/eTransmitting on: 0 11/20/2024 [...]
--- OUTSIDE RECORDS SUMMARY | 2024-11-11 11:30 | XMS_ITS ---
Author Organization [facility] Address [address] [facility] [address] [place], [place] [id number] Care Team Providers Care Polymerization Engineer Name Role Phone Lisha Galloway Primary Care Provider [phone] RalfOdette sheehan Unavailable [phone] Allergies No Known Allergies Results Component Value Reference Range Notes CBC Venipuncture (in house) Reviewed date:11/13/2024 12:56:45 PM Interpretation:Normal Performing Lab: Notes/Report: Normal wbc 8.7 3.5 - 10 lymph 21.3% 15 - 50 mid 6.6% 2 - 15 gran 72.1% 35 - 80 rbc 4.92 3.5 - 5.5 hgb 14.0 11.5 - 16.5 hct 42.6 35 - 55 mcv 86.6 75 - 100 mch 28.5 25 - 35 mchc 32.8 31 - 38 platlet 383 100 - 400 Glycohemoglobin A1c (in hous e) Reviewed date:11/13/2024 12:56:45 PM Interpretation:5.2 Performing Lab: Notes/Report: 5.2 glycohemoglobin 5.2% 5 - 6.5 % Cologuard Reviewed date:11/19/2024 10:37:01 AM Interpretation: Performing Lab: Notes/Report: P-Comprehensive Metabolic Pa laura (CMP) Reviewed date:11/13/2024 12:56:45 PM Interpretation:BUN 22 Performing Lab: Notes/Report: Test performed by [facility] [address] [place] [address] , [address], [place] [address] Agapito Veras MD, Radiological Metallurgist CLIA: [id number] Sodium 138 135-145 mmol/L Potassium 4.2 3.5-5.3 mmol/L Chloride 98 97-108 mmol/L CO2 27 22-32 mmol/L Glucose 81 65-99 mg/dL BUN 22 6-20 mg/dL Creatinine 0.99 0.50-1.00 mg/dL Calcium 10.4 8.6-10.4 mg/dL eGFR by Creatinine 68 >59 mL/min/1.73m2 Protein 7.8 6.0-8.3 g/dL Albumin 4.6 3.5-5.3 g/dL Alkaline Phosphatase 114 35-121 IU/L ALT (SGPT) 20 <5-47 IU/L AST (SGOT) 18 <5-40 IU/L Bilirubin, Total 0.6 <0.2-1.2 mg/dL A/G Ratio 1.4 1.1-2.5 P-Lipid Panel Reviewed date:11/13/2024 12:56:45 PM Interpretation:trigs 160, non-hdl 142 Performing Lab: Notes/Report: Test performed by [facility], [address] , [address], [place] [address] Agapito Veras MD, Radiological Metallurgist CLIA: [id number] Cholesterol 184 <200 mg/dL Triglycerides 160 <150 mg/dL HDL Cholesterol 42 >39 mg/dL Cholesterol / HDL Ratio 4.38 0.00-4.44 Ratio Non-HDL Cholesterol 142 <130 mg/dL LDL Cholesterol (Calculation) 110 <130 mg/dL LDL Cholesterol Levels* Less than 100 mg/dL Optimal 100 to 129 mg/dL Near Optimal/ Above Optimal 130 to 159 mg/dL Borderline High 160 to 189 mg/dL High 190 mg/dL and above Very High * Categories as recommended by the 2004 ATPIII guidelines LDL/HDL Ratio 2.6 <3.3 Ratio LDL Cholesterol Patient History Test Date: 11/15/2023 LDL Results: 120 Units: mg/dL % Change: -47% Test Date: 08/07/2024 LDL Results: 130 Units: mg/dL % Change: +8% Test Date: 11/11/2024 LDL Results: 110 Units: mg/dL % Change: -15% P-TSH reflex to FT4 Reviewed date:11/13/2024 12:56:45 PM Interpretation:Normal Performing Lab: Notes/Report: Test performed by [facility] [address] [place], [place] [address] , [place] [address] Agapito Veras MD, Radiological Metallurgist CLIA: [id number] TSH reflex to FT4 2.66 0.43-5.25 mU/L P-Microalbumin/Creatinine, R andom Urine Sample Reviewed date:11/13/2024 12:56:45 PM Interpretation:Normal Performing Lab: Notes/Report: Test performed by [facility] [address] [place] [address] , [place] [address] Agapito Veras MD, Radiological Metallurgist CLIA: [id number] Albumin/Creatinine Ratio, Urine 4 0-30 ug/m g Microalbumin, Urine, Random 0.3 Creatinine, Urine 69.8 REASON FOR VISIT 3 Month Check Up w/ Labs, Needs labs, mammogram, colon cancer screening, & shingles vaccine Medications Medication SIG (Take, Route, Frequency, Duration) Notes Start Date End Date Status Xyzal Allergy 24HR 5 MG 1 tab(s) orally once a day (in the evening) for 30 day(s) Active Aspirin Adult Low Dose 81 MG 1 tab(s) orally once a day for 30 day(s) Active Vitamin D3 125 MCG (5000 UT) 1 cap(s) orally once a day for 30 day(s) Active Furosemide 40 MG TAKE 1 TABLET BY LAYTON TH DAILY Orally Once a day for 90 days Active Spironolactone 25 MG TAKE 1 TABLET BY MO UTH EVERY DAY Orally Once a day for 90 days Active Mounjaro 12.5 MG/0.5ML 12.5 mg Subcutane ous once a week Active Valsartan 160 MG 1 tab(s) orally once a day for 90 days Active Carvedilol 3.125 MG 1 tab(s) orally 2 ti mes a day for 90 days Active Atorvastatin Calcium 40 MG 1 tablet Oral ly Once a day for 90 days 08/14/2024 Active Vital Signs Blood pressure systolic 120 mm Hg 11/12/19 25 Blood pressure diastolic 80 mm Hg 025 Heart Rate 85 /min 11/11/2024 Height 65 in 11/11/2024 Weight 292.4 lbs 11/11/2024 BMI 48.65 kg/m2 11/11/2024 Encounters Encounter Location Date Provider Diagnosis [facility] [address] [facility] [address] [place], [place] [id number] 11/11/2024 Odette Young Type 2 diabetes gareth itus without complication, without long-term current use of insulin E11.9 ; Essential hypertension I10 ; Morbid obesity E66.01 ; Mixed hyperlipidemia E78.2 ; Screening mammogram, encounter for Z12.31 and Colon cancer screening Z12.11 Assessments Encounter Date Diagnosis (ICD Code) Assessment Notes Treatment Notes Treatment Clinical Notes Section Notes 11/11/2024 Type 2 diabetes mellitus without complication, without long-term current use of insulin (ICD-10 - E11.9) 11/11/2024 Essential hypertension (ICD-10 - I10) 11/11/2024 Morbid obesity (ICD-10 - E66.01) 11/11/2024 Mixed hyperlipidemia (ICD-10 - E78.2) 11/11/2024 Screening mammogram, encounter for (ICD-10 - Z12.31) 11/11/2024 Colon cancer screening (ICD-10 - Z12.11) Plan Of Treatment Medication Medication Name Sig Start Date Stop Date Notes Furosemide 40 MG TAKE 1 TABLET BY LAYTON TH DAILY Orally Once a day for 90 days Spironolactone 25 MG TAKE 1 TABLET BY MO UTH EVERY DAY Orally Once a day for 90 days Mounjaro 12.5 MG/0.5ML 12.5 mg Subcutane ous once a week Valsartan 160 MG 1 tab(s) orally once a day for 90 days Carvedilol 3.125 MG 1 tab(s) orally 2 ti mes a day for 90 days Atorvastatin Calcium 40 MG 1 tablet Oral ly Once a day for 90 days 08/14/2024 Pending Test Test Name Order Date Mammogram 11/11/2024 Next Appt Details Follow Up: via phone to repo rt test results, Reason: Provider Name:Odette Stephen y, 02/11/2025 03:30:00 PM, [address], [address] , [place], [place], [id number], Progress Notes * RODERICK MTZB:1970 ( 54 yo F)Acc No.[id number]:11/11/2024 Progress Notes Patient: BLACK COHEN Provider: TORI Wiley :1970 A ge:54 Y S ex:Female Date:11/11/2024 Address:[address] [place] [address] [place], [id number] Pcp:Lisha Galloway Subjective: * Chief Complaints: * 1 . 3 Month Check Up w/ Labs. 2. Needs labs, mammogram, colon cancer screening, & shingles vaccine. * HPI: C ardiology: The patient is here for a check up on Hypertension and Diabetes. Pt states she doing good and denies any new concerns. Pt states she is [facility] [place]. Pt is not fasting. Denies : Chest Pain. D enies : Short of Breath. D enies : Dizziness. D enies : Palpitations. * ROS: D ERMATOLOGY: no R wale. [...] Lymphedemia, Strep Infection in blood, Hypotension; Sepsis- [facility] 12/2018, Acute Congestive Heart Failure, Cellulitis Hypertension, PRES- 01/06-, Rehabilitation for Stay- [facility] 01/14-. * Family History: F ather: 68 [...] orally 2 times a day , Taking Atorvastatin Calcium 40 MG Tablet 1 tablet Orally Once a day , Taking Furosemide 40 MG Tablet TAKE 1 TABLET BY MOUTH DAILY , Taking Mounjaro 12.5 MG/0.5ML Solution Auto-injector 12.5 mg Subcutaneous once a week , Taking Spironolactone 25 MG Tablet TAKE 1 TABLET BY MOUTH EVERY DAY , Medication List reviewed and reconciled with the patient * Allergies: N .K.D.A. Objective: * Vitals: W t: 292.4, Temp: 98.0, BP: 120/80, HR: 85, Nurse: RAE, Ht: 65, BMI:48.65. * Examination: G eneral Examination: General Appearance: N AD. HEENT: u nremarkable. Oral cavity: n o lesions, mucosa moist and WNL, no erythema. Neck: s upple, no lymphadenopathy. Chest: n ormal shape and expansion. Heart: R SR. Lungs: c lear to auscultation. Abdomen: b owel sounds present, soft and nontender, no organomegaly or masses, no guarding or rigidity. Neurologic Exam: I ntact, gait normal. Skin: n ormal, no rash. Peripheral pulses: n ormal (2+) bilaterally. Extremities: n o leg edema. Assessment: * Assessment: 1. T ype 2 diabetes mellitus without complication, without long-term current use of insulin - E11.9 (Primary) 2 . E ssential hypertension - I10 3 . M orbid obesity - E66.01 4 . M ixed hyperlipidemia - E78.2 5 . S creening mammogram, encounter for - Z12.31 6 . C olon cancer screening - Z12.11? Plan: * Treatment: Value Reference Range A /G Ratio 1.4 1.1-2.5 - * A lbumin 4.6 3.5-5.3 - g/dL * A lkaline Phosphatase 114 35-121 - IU/L * A LT (SGPT) 20 <5-47 - IU/L * A ST (SGOT) 18 <5-40 - IU/L * B ilirubin, Total 0.6 <0.2-1.2 - mg/dL * B UN 22 H 6-20 - mg/dL * C alcium 10.4 8.6-10.4 - mg/dL * C hloride 98 97-108 - mmol/L * C O2 27 22-32 - mmol/L * C reatinine 0.99 0.50-1.00 - mg/dL * G lucose 81 65-99 - mg/dL * P otassium 4.2 3.5-5.3 - mmol/L * S odium 138 135-145 - mmol/L * P rotein 7.8 6.0-8.3 - g/dL * e GFR by Creatinine 68 >59 - mL/min/1.73m2 * Eliceo Youngradha Vargas 11/11/2024 0 3:55:39 PM EDT >room 5, Carole Jacques 11/13/2024 12:56:35 PM EDT > See phone encounter ?LAB: P-Microalbumin/Creatinine, Random Urine Sample (Collection Date & Time - 11/11/2024 02:57 PM)?Normal* Value Reference Range A lbumin/Creatinine Ratio, Urine 4 0-30 - ug /mg * C reatinine, Urine 69.8 - mg/dL * M icroalbumin, Urine, Random 0.3 - mg/dL * RalfEliceo sheehanradha Vargas 11/11/2024 0 3:55:39 PM EDT >room 5, Carole Jacques 11/13/2024 12:56:35 PM EDT > See phone encounter ?LAB: Glycohemoglobin A1c (in house) (Collection Date & Time - 11/11/2024)? 5.2* Value Reference Range g lycohemoglobin 5.2% 5 - 6.5 % * Paula Abdullahi 11/11/2024 04 :27:35 PM EDT > Carole Sanches 11/13/2024 12:56:35 PM EDT > See phone encounter 2.?Essential hypertension? Refill Valsartan Tablet, 160 MG, 1 tab(s), orally, once a day, 90 days, 90 Tablet, Refills 1;?Refill Carvedilol Tablet, 3.125 MG, 1 tab(s), orally, 2 times a day, 90 days, 180 Tablet, Refills 1; Refill Furosemide Tablet, 40 MG, TAKE 1 TABLET BY MOUTH DAILY, Orally, Once a day, 90 days, 90, Refills 1;?Refill Spironolactone Tablet, 25 MG, TAKE 1 TABLET BY MOUTH EVERY DAY, Orally, Once a day, 90 days, 90, Refills 1.?LAB: P-TSH reflex to FT4 (Collection Date & Time - 11/11/2024 02:57 PM)? Normal* Value Reference Range T SH reflex to FT4 2.66 0.43-5.25 - mU/L * Odette Young 11/11/2024 0 3:55:39 PM EDT >room 5, purple Carole Sanches 11/13/2024 12:56:35 PM EDT > See phone encounter ?LAB: CBC Venipuncture (in house) (Collection Date & Time - 11/11/2024)? Normal* Value Reference Range w bc 8.7 3.5 - 10 * l ymph 21.3% 15 - 50 * m id 6.6% 2 - 15 * g ran 72.1% 35 - 80 * r bc 4.92 3.5 - 5.5 * h gb 14.0 11.5 - 16.5 * h ct 42.6 35 - 55 * m cv 86.6 75 - 100 * m ch 28.5 25 - 35 * m chc 32.8 31 - 38 * p latlet 383 100 - 400 * Paula Abdullahi 11/11/2024 04 :28:23 PM EDT > Carole Sanches 11/13/2024 12:56:35 PM EDT > See phone encounter 3.?Mixed hyperlipidemia? Refill Atorvastatin Calcium Tablet, 40 MG, 1 tablet, Orally, Once a day, 90 days, 90 Tablet, Refills 1.?LAB: P-Lipid Panel (Collection Date & Time - 11/11/2024 02:57 PM)?trigs 160, non-hdl 142* Value Reference Range C holesterol / HDL Ratio 4.38 0.00-4.44 - Ratio * C holesterol 184 <200 - mg/dL * H DL Cholesterol 42 >39 - mg/dL * L DL Cholesterol (Calculation) 110 <130 - mg/d L * L DL/HDL Ratio 2.6 <3.3 - Ratio * N on-HDL Cholesterol 142 H <130 - mg/dL * T riglycerides 160 H <150 - mg/dL * Odette Young 11/11/2024 0 3:55:39 PM EDT >room 5, purple Carole Sanches 11/13/2024 12:56:35 PM EDT > See phone encounter 4.?Screening mammogram, encounter for?Imaging: Mammogram* Kaia Puckett 11/13/2024 01:4 3:15 PM EDT > faxed to [facility] Scheduling 5.?Colon cancer screening?LAB: Annmarie (Collection Date & Time - 11/19/2024)* Carole Sanches 11/19/2024 10: 09:05 AM EDT > was previously ordered in August. Pt has a kit at home according to [employer] website. sent to Savita Otero 11/19/2024 10:36:48 AM EDT >noted * Procedure Codes: 8 3036 GLYCATED HEMOGLOBIN TEST, Modifiers: QW , [address] CBC WITH AUTO DIFF, 3044F HG A1C LEVEL LT 7.0%, 1036F TOBACCO NON-USER, G8950 PREHTN/HTN BP DOC INDCD F/U DOC, G8752 MOST RECENT SYSTOLIC BP < 140MM HG, G8754 MOST RECENT DIASTOLIC BP < 90MM HG * Follow Up: v ia phone to report test results * Billing Information: * Visit Code: 58670 Office Visit, Est Pt., Level 4. * Procedure Codes: 73349 GLYCATED HEMOGLOBIN TEST. Modifiers: QW 52513 CBC WITH AUTO DIFF. 3044F HG A1C LEVEL LT 7.0%. 1036F TOBACCO NON-USER. G8950 PREHTN/HTN BP DOC INDCD F/U DOC. G8752 MOST RECENT SYSTOLIC BP < 140MM HG. G8754 MOST RECENT DIASTOLIC BP < 90MM HG. * Electronic signature of TORI Galdamez on 11/20/2024 at 03:20 PM EDT Sign off status: Pending * Provider: TORI Wiley Date: 0 11/11/2024 Generated for Violetta mcdowell/Shine/eTransmitting on: 0 11/20/2024 03:20 PM EDT History and Physical Notes * HPI (History of Present Illness) Category Sub-Category Detail Notes Category Not es Cardiology Short of Breath Chest Pain Palpitations Dizziness Examination Category Sub-Category Detail Notes Category Not es General Examination HEENT: unremarkable Heart: RSR Lungs: clear to auscultatio n Abdomen: bowel sounds present , soft and nontender, no organomegaly or masses, no guarding or rigidity Extremities: no leg edema General Appearance: NAD Skin: normal, no rash Neurologic Exam: Intact, gait normal Neck: supple, no lymphaden opathy Oral cavity: no lesions, mucosa m oist and WNL, no erythema Peripheral pulses: normal (2+) bilatera lly Chest: normal shape and exp ansion
--- OUTSIDE RECORDS SUMMARY | 2024-11-20 15:20 | XMS_ITS | Clinical Summary ---
Author Organization [facility] Address [address] [place] [address] Care Team Providers Care Sugar Refiner Name Role Phone Guanako Galloway MD Primary Care Provider [phone] Family History Medical History Relation Name Comments COPD Mother Conversions - Other Mother joint di sorder Diabetes Mother Hypertension Mother Neuropathy Mother Relation Name Status Comments Mother Social History Tobacco Use Types Packs/Day Years Used Date Smoking Tobacco: Former Comments Unknown Sex and Gender Information Value Date Recorded Sex Assigned at Not on file Legal Sex Female 7:27 PM EDT Gender Identity Not on file Sexual Orientation Not on file Last Filed Vital Signs Vital Sign Reading Time Taken Comments Blood Pressure 118/75 05/12/2019 11:27 AM EST Pulse - - Temperature - - Respiratory Rate 18 05/12/2019 11:27 AM EST Oxygen Saturation - - Inhaled Oxygen Concentration - - Weight 139 kg (306 lb) 05/12/2019 11:27 AM EST Height 167.6 cm (5' 6 ) 05/12/2019 11:27 AM EST Body Mass Index 49.39 05/12/2019 11:27 AM EST Plan of Treatment Not on file Insurance ANTHEM Care Teams Sugar Refiner Relationship Specialty Start Date End Date Guanako Galloway MD [address] [place] [address] PCP - General 10/14/20
--- OUTSIDE RECORDS SUMMARY | 2024-11-20 15:20 | XMS_ITS | Patient Health Record ---
Author Organization [facility] Address [address] [place] [address] Care Team Providers Care Splitter Head Name Role Phone MICA KOLB Unavailable [phone] Reason For Referral No Information Medications Medication SIG (Take, Route, Frequency, Duration) Notes Start Date End Date Status Bumex 1 MG 1 tablet Orally twic e a day for 30 day(s) 04/24/2017 Active Atorvastatin Calcium 40 MG 1 tablet Oral ly Once a day for 30 day(s) Active Levothyroxine Sodium 100 MCG 1 tablet on an empty stomach in the morning Orally Once a day for 30 day(s) Active Xyzal 5 MG 1 tablet in the even ing Orally Once a day for 30 day(s) Active Claritin 10 MG 1 tablet Orally Once a day for 30 day(s) Active Problems Problem Type SNOMED Code ICD Code Onset Dates Problem Status W/U Status Risk Notes Problem Benign hypertension (62099435) Benign hypertension (I10) Active confirmed Problem Controlled type 2 diabetes mellitus without complication, 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 Metabolic Panel (14) 04/24/2017 VAMSI w/Reflex+ANCA+MPO+PR3 04/24/2017 C4+C3 04/24/2017 Insurance Providers Payer Name Payer Address Payer Phone Subscriber Number Group Number Insured Name Patient Relationship to Insured Coverage Start Date Coverage End Date [facility] [address] [place] [address] [id number] Self - patient is the insured Medical (General) History Surgical History Surgery Date(Month/Year) Hypertension High Cholesterol
--- OUTSIDE RECORDS SUMMARY | 2024-11-20 15:20 | XMS_ITS | Patient Health Record ---
Author Organization [facility] Address [address] [id number] Care Team Providers Care Rust Proofer Name Role Phone Lisha Galloway Primary Care Provider [phone] Odette Young Unavailable [phone] Allergies No Known Allergies Results Component Value Reference Range Notes P-Microalbumin/Creatinine, R andom Urine Sample Reviewed date:11/13/2024 12:56:45 PM Interpretation:Normal Performing Lab: Notes/Report: Test performed by [facility] [address] [place], [place] [address] [place] , [address], [place] [address] Agapito Veras MD, Field Hand CLIA: [id number] Albumin/Creatinine Ratio, Urine 4 0-30 ug/m g Microalbumin, Urine, Random 0.3 Creatinine, Urine 69.8 Glycohemoglobin A1c (in hous e) Reviewed date:03/20/2024 08:55:38 AM Interpretation:5.9% Performing Lab: Notes/Report: 5.9% glycohemoglobin 5.9% 5 - 6.5 % Glycohemoglobin A1c (in hous e) Reviewed date:08/13/2024 04:38:48 PM Interpretation:5.5% Performing Lab: Notes/Report: 5.5% glycohemoglobin 5.5% 5 - 6.5 % P-Comprehensive Metabolic Pa laura (CMP) Reviewed date:08/13/2024 04:38:48 PM Interpretation:Cr 1.05 Performing Lab: Notes/Report: Test performed by [facility] [address] [place], [place] [address] [address], [address], [place] [address] Agapito Veras MD, Field Hand CLIA: [id number] Sodium 138 135-145 mmol/L Potassium 4.9 3.5-5.3 [...] 0.4 <0.2-1.2 mg/dL A/G Ratio 1.3 1.1-2.5 Mammogram (Not yet reviewed by provider) Interpretation:another ordered Performing Lab: Notes/Report: another ordered Glycohemoglobin A1c (in hous e) Reviewed date:12/19/2023 09:14:52 AM Interpretation: Performing Lab: Notes/Report: glycohemoglobin 6.8% 5 - 6.5 % P-Comprehensive Metabolic Pa laura (CMP) Reviewed date:03/31/2024 11:48:27 AM Interpretation:Cr 1.13, gfr 58, alk phos 122 Performing Lab: Notes/Report: Test performed by [facility] [address] [place] [address] , [address], [place] [address] Agapito Veras MD, Field Hand CLIA: [id number] Sodium 138 135-145 mmol/L Potassium 4.5 3.5-5.3 [...] 0.6 <0.2-1.2 mg/dL A/G Ratio 1.2 1.1-2.5 P-Lipid Panel Reviewed date:08/13/2024 04:38:48 PM Interpretation:chol 201, trigs 189, hdl 33, chol/hdl 6.09, non-hdl 168, ldl 130, ldl/hdl 3.9 Performing Lab: Notes/Report: Test performed by [facility] [address] , [address], [place] [address] Agapito Veras MD, Field Hand CLIA: [id number] Cholesterol 201 <200 mg/dL Triglycerides 189 <150 [...] Interpretation:Normal Performing Lab: Notes/Report: Test performed by [facility], [address] , [address], [place] [address] Agapito Veras MD, Field Hand CLIA: [id number] TSH reflex to FT4 2.90 0.43-5.25 mU/L CBC Venipuncture (in house) Reviewed date:11/13/2024 12:56:45 [...] 5.2 glycohemoglobin 5.2% 5 - 6.5 % Annmarie Reviewed date:11/19/2024 10:37:01 AM Interpretation: Performing Lab: Notes/Report: P-Comprehensive Metabolic Pa laura (CMP) Reviewed date:11/13/2024 12:56:45 PM Interpretation:BUN 22 Performing Lab: Notes/Report: Test performed by [facility] [address] [place] [address] , [address], [place] [address] Agapito Veras MD, Field Hand CLIA: [id number] Sodium 138 135-145 mmol/L Potassium 4.2 3.5-5.3 [...] 142 Performing Lab: Notes/Report: Test performed by [facility] [address] [place] [address] , [address], [place] [address] Agapito Veras MD, Field Hand CLIA: [id number] Cholesterol 184 <200 mg/dL Triglycerides 160 <150 [...] Interpretation:Normal Performing Lab: Notes/Report: Test performed by [facility] [address] [facility] [address], [place] [address] Agapito Veras MD, Field Hand CLIA: [id number] TSH reflex to FT4 2.66 0.43-5.25 mU/L Reason For Referral No Information Medications Medication [...] once a day for 30 day(s) Active Mounjaro 12.5 MG/0.5ML 12.5 mg Subcutane ous once a week Active Valsartan 160 MG 1 tab(s) orally once a day for 90 days Active Carvedilol 3.125 MG 1 tab(s) orally 2 ti mes a day for 90 days Active Atorvastatin Calcium 40 MG 1 tablet Oral ly Once a day for 90 days 08/14/2024 Active Furosemide 40 MG TAKE 1 TABLET BY LAYTON TH DAILY Orally Once a day for 90 days Active Spironolactone 25 MG TAKE 1 TABLET BY MO UTH EVERY DAY Orally Once a day for 90 days Active Immunizations Vaccine Route Administration Date Status Comme nts COVID 19 Moderna Unknown 10/20/2020 Administered Tetanus Tdap-Adacel (over 7yrs) IM Intramuscular 06/14/2021 Administered Problems Problem Type SNOMED Code ICD Code Onset Dates Problem Status W/U Status Risk Notes Problem 99422712 Essential hypertension (I10) Active confirmed Problem 595591101 Morbid obesity (E66.01) Active confirmed Problem 340317590 BMI 50.0-59.9, adult (Z68.43) Active confirmed Problem Obesity (E66.9) Active confirmed Problem 419970868769743 History of sepsi s (Z86.19) Active confirmed Problem 577293586 Mixed hyperlipidemia (E78.2) Active confirmed Problem Hyperlipidemia due to type 2 diabetes mellitus (disorder) (769817674237097) Hyperlipidemia associated with type 2 diabetes mellitus (E11.69) Active confirmed Problem 9995606 Lichen planus (L43.9) Active confirmed Problem 323161575 Type 2 diabetes mellitus without complication, without long-term current use of insulin (E11.9) Active confirmed Problem 61447857 Aortic valve sclerosis (I35.8) Active confirmed Problem 875470270 History of encephalopathy (Z86.69) Active confirmed Vital Signs Heart Rate 85 /min 11/11/2024 Blood pressure diastolic 80 mm Hg 11/11/2024 Height 65 in 11/11/2024 Blood pressure systolic 120 mm Hg 11/11/2024 Weight 292.4 lbs 11/11/2024 BMI 48.65 kg/m2 11/11/2024 Encounters Encounter [facility] Date Provider [facility] [address] [place] [id number] 12/18/2023 Odette Young BMI 50.0-59.9, adult Z68.43 and Type 2 diabetes mellitus without complication, without long-term current use of insulin [facility]11.9 [facility] [address] [place] [id number] 03/19/2024 Odette Young Type 2 diabetes gareth itus without complication, without long-term current use of insulin [facility] [address], [place] [id number] 08/07/2024 Odette Young Type 2 diabetes gareth itus without complication, without long-term current use of insulin E11.9 ; Colon cancer screening Z12.11 ; Screening mammogram, encounter for Z12.31 ; Morbid obesity E66.01 and Mixed hyperlipidemia E78.2 [facility] [address] [place] [id number] 11/11/2024 Odette Young Type 2 diabetes gareth itus without complication, without long-term current use of insulin E11.9 ; Essential hypertension I10 ; Morbid obesity E66.01 ; Mixed hyperlipidemia E78.2 ; Screening mammogram, encounter for Z12.31 and Colon cancer screening Z12.[facility] [address] [place], [place] [id number] 11/22/[address] [facility] [address] [place], [place] [id number] 11/22/[address] [facility] [address] [place], [place] [id number] 12/19/2023 Lisha Galloway [facility] [address] [place], [place] [id number] 01/14/2024 J Erasmo Galloway Type 2 diabetes gareth itus without complication, without long-term current use of insulin E11.9 [facility] [address] [place], [place] [id number] 02/10/2024 Odette Young Type 2 diabetes gareth itus without complication, without long-term current use of insulin E11.9 [facility] [address] [place], [place] [id number] 03/11/2024 J Erasmo Galloway [facility] [address] [place], [place] [id number] 03/20/2024 Odette Arambulady [facility] [address] [place], [place] [id number] 04/08/2024 Odette Crowdy [facility] [address] [place], [place] [id number] 06/04/2024 Lisha Galloway [facility] [address] [place] [id number] 07/01/2024 Odetteradha Young [facility] [address] [place] [id number] 07/24/2024 Lisha Galloway [facility] [address] [place] [id number] 07/30/2024 J Erasmo Galloway [facility] [address] [place], [place] [id number] 08/13/2024 Odette Ralfsissy [facility] [address] [place], [place] [id number] 09/21/2024 Lisha Galloway Type 2 diabetes gareth itus without complication, without long-term current use of insulin E11.9 [facility] [address] [place], [place] [id number] 10/20/2024 Lisha Galloway Type 2 diabetes gareth itus without complication, without long-term current use of insulin E11.9 [facility] [address] [facility] [address] [place] [id number] 11/13/2024 Odette Young Assessments Encounter Date Diagnosis (ICD Code) Assessment Notes Treatment Notes Treatment Clinical Notes Section Notes 12/18/2023 BMI 50.0-59.9, adult (ICD-10 - Z68.43) Patient is doing well on the zepbound. Her previous labs showed an elevated glucose. Her A1C confirms she is diabetic. Will need to switch to mounjaro at 5mg. 12/18/2023 Type 2 diabetes mellitus without complication, without long-term current use of insulin (ICD-10 - E11.9) 01/14/2024 Type 2 diabetes mellitus without complication, without long-term current use of insulin (ICD-10 - E11.9) 02/10/2024 Type 2 diabetes mellitus without complication, without long-term current use of insulin (ICD-10 - E11.9) 03/19/2024 Type 2 diabetes mellitus without complication, without long-term current use of insulin (ICD-10 - E11.9) Will check labs and urine. She has a cologuard at home she has just not done it yet. 09/21/2024 Type 2 diabetes mellitus without complication, without long-term current use of insulin (ICD-10 - E11.9) 10/20/2024 Type 2 diabetes mellitus without complication, without long-term current use of insulin (ICD-10 - E11.9) 11/11/2024 Essential hypertension (ICD-10 - I10) 08/07/2024 Colon cancer screening (ICD-10 - Z12.11) 08/07/2024 Type 2 diabetes mellitus without complication, without long-term current use of insulin (ICD-10 - E11.9) 11/11/2024 Type 2 diabetes mellitus without complication, without long-term current use of insulin (ICD-10 - E11.9) 08/07/2024 Screening mammogram, encounter for (ICD-10 - Z12.31) 11/11/2024 Morbid obesity (ICD-10 - E66.01) 08/07/2024 Morbid obesity (ICD-10 - E66.01) 11/11/2024 Mixed hyperlipidemia (ICD-10 - E78.2) 11/11/2024 Screening mammogram, encounter for (ICD-10 - Z12.31) 08/07/2024 Mixed hyperlipidemia (ICD-10 - E78.2) 11/11/2024 Colon cancer screening (ICD-10 - Z12.11) Plan Of Treatment Pending Test Test Name Order Date CXR 02/21/2022 Mammogram 08/07/2024 Mammogram 11/11/2024 Cologuard 08/07/2024 Cologuard 08/02/2023 H-TSH 06/14/2021 H-Lipid Panel 06/14/2021 H-CMP 06/14/2021 P-Microalbumin/Creatinine, Random Urine Sample 03/19/2024 Next Appt Details Provider Name:Odette davis, 02/11/2025 03:30:00 PM, [address], [address], [place], [place], [id number], Insurance Providers Payer Name Payer Address Payer Phone Subscriber Number Group Number Insured Name Patient Relationship to Insured Coverage Start Date Coverage End Date [employer] [address] [place] [address] [id number] 2000 [id number] BLACK [id number] Self - patient is the insured Medications Administered Medication Instructions Date of Administration Dosage Notes Dexamethasone 12/18/2022 1 mL rocephin one gram IM 05/11/2019 1 g rocephin one gram IM 01/15/2020 1 g Medical (General) History Medical History History ICD Code Allergies Pre-Diabetic Kidney Issues Hypertension Hypothyroid Hyperlipidemia Sepsis Bacteremia Bilateral Leg Stasis Dermatitia Cellulitis of LLE Morbid Obesity Surgical History Surgery Date(Month/Year) Tubal Ligation Tonsilectomy Hospitalization History Reason Date(Month/Year) Rehabilitation for Stay- [facility] 01/14- Acute Congestive Heart Failure, Cellulit is Hypertension, PRES- 01/06- Cellulitis LLE, Lymphedemia, Strep Infection in blood, Hypotension; Sepsis- [facility] 12/2018
--- NOTE | 2024-11-20 15:21 | MM_ITS ---
PROCEDURE INFORMATION: Exam: MG Bilateral Screening 3D Mammography Exam date and time: 11/20/2024 3:31 PM Age: 54 years old Clinical indication: Screening examination. A paternal aunt had breast cancer. TECHNIQUE: Imaging protocol: Bilateral Screening tomosynthesis and 2D mammography including computer-aided detection (CAD) when performed. COMPARISON: 1. MG MM DIG SCREENING MAMM BI W/CAD 08/14/2023 3:50 PM 2. MG MM DIG SCREENING MAMM BI W/CAD 06/28/2021 3:25 PM FINDINGS: MAMMOGRAPHY: Breast composition: There are scattered areas of fibroglandular density. Mass: None. Architectural distortion: None. Calcifications: No suspicious calcifications. Asymmetric density: None. Skin thickening: None. Axillary adenopathy: None. IMPRESSION: No mammographic evidence of malignancy. Annual screening is recommended unless otherwise clinically indicated. ASSESSMENT: BI-RADS Category 1: Negative.
== END 2024-11-20 23:59 | disposition home or self-care (01) ==
LOC: RAD 15:18
PROVIDERS: PCP Family Medicine; Visit Provider Physician Assistant
DX: Z12.31 Encounter for screening mammogram for malignant neoplasm of breast (principal); R92.323 Mammographic fibroglandular density, bilateral breasts; Z80.3 Family history of malignant neoplasm of breast
CPT/HCPCS: 77063; 77067

== ENCOUNTER 2025-02-22 14:52 | Outpatient (CLI) | payer BC, SELFPAY ==
--- OUTSIDE RECORDS SUMMARY | 2024-02-14 05:00 | XMS_ITS ---
Author Organization [facility] Address [address] [place], [place] [id number] Care Team Providers [facility] Room Attendant Name Role Phone Lisha Galloway Primary Care Provider Odette Young Unavailable [phone] REASON FOR VISIT 3 months Encounters Encounter Location Date Provider Diagnosis [facility] [address] [place], [place] [id number] 02/14/2024 Oedtte Young Plan Of Treatment Next Appt Details Provider Name:Odette Stephen y, 08/11/2025 04:00:00 PM, [address], [place], [place], [id number], Progress Notes * MTZAMANDEEP AlcarazADOB:1970 ( 54 yo F)Acc No.[id number]:02/14/2024 Progress Notes Patient: BLACK COHEN Provider: TORI Wiley :1970 A ge:53 Y S ex:Female Date:02/14/2024 Address:[address] [id number] Pcp:Lisha Galloway Subjective: * Chief Complaints: * 1 . 3 months. * Medical History: Objective: * Vitals: Assessment: Plan: * Treatment: * Images: Billing Information: * Visit Code: * Procedure Codes: * Electronic signature of TORI Galdamez on 02/22/2025 at 02:55 PM EDT Sign off status: Pending * Provider: TORI Wiley Date: 0 02/14/2024 Generated for Violetta mcdowell/Shine/Danni on: 0 02/22/2025 02:55 PM EDT
--- OUTSIDE RECORDS SUMMARY | 2024-03-19 11:30 | XMS_ITS ---
Author Organization [facility] Address [address] [facility] [address] [place], [place] [id number] Care Team Providers Care Platform Man Name Role Phone Lisha Galloway Primary Care Provider Odette Young Unavailable [phone] Allergies No Known Allergies Results Component Value Reference Range Notes Glycohemoglobin A1c (in hous e) Reviewed date:03/20/2024 08:55:38 AM Interpretation:5.9% Performing Lab: Notes/Report: 5.9% glycohemoglobin 5.9% 5 - 6.5 % P-Comprehensive Metabolic Pa laura (CMP) Reviewed date:03/31/2024 11:48:27 AM Interpretation:Cr 1.13, gfr 58, alk phos 122 Performing Lab: Notes/Report: Test performed by [facility] [address] [place] [address] , [address], [place] [address] Agapito Veras MD, Windows Server Architect CLIA: [id number] Sodium 138 135-145 mmol/L Potassium 4.5 3.5-5.3 mmol/L Chloride 97 97-108 mmol/L CO2 29 22-32 mmol/L Glucose 93 65-99 mg/dL BUN 15 6-20 mg/dL Creatinine 1.13 0.50-1.00 mg/dL Calcium 10.3 8.6-10.4 mg/dL eGFR by Creatinine 58 >59 mL/min/1.73m2 Protein 7.8 6.0-8.3 g/dL Albumin 4.2 3.5-5.3 g/dL Alkaline Phosphatase 122 35-121 IU/L ALT (SGPT) 25 <5-47 IU/L AST (SGOT) 19 <5-40 IU/L Bilirubin, Total 0.6 <0.2-1.2 mg/dL A/G Ratio 1.2 1.1-2.5 P-Microalbumin/Creatinine, R andom Urine Sample Reviewed date:01/18/2025 09:40:47 AM Interpretation:see 11/11/2024 Performing Lab: Notes/Report: see 11/11/2024 REASON FOR VISIT 3 month f/u, Needs labs, colon cancer screening, & shingles vaccine Medications Medication SIG (Take, Route, Frequency, Duration) Notes Start Date End Date Status Furosemide 40 MG 1 tab(s) orally once a day; Duration: 90 days Active Carvedilol 3.125 MG 1 tab(s) orally 2 ti mes a day; Duration: 90 days Active Atorvastatin Calcium 20 MG TAKE 1 TABLET BY MOUTH EVERY DAY; Duration: 30 Active Spironolactone 25 MG TAKE 1 TABLET BY MO UTH DAILY; Duration: 30 Active Mounjaro 7.5 MG/0.5ML 7.5 mg Subcutaneou s once a week 02/12/2024 Active Valsartan 160 MG 1 tab(s) orally once a day; Duration: 90 days Active Vitamin D3 125 MCG (5000 UT) 1 cap(s) orally once a day; Duration: 30 day(s) Active Aspirin Adult Low Dose 81 MG 1 tab(s) orally once a day; Duration: 30 day(s) Active Xyzal Allergy 24HR 5 MG 1 tab(s) orally once a day (in the evening); Duration: 30 day(s) Active Problems Problem Type SNOMED Code ICD Code Onset Dates Problem Status W/U Status Risk Notes Problem Hyperlipidemia due to type 2 diabetes mellitus (disorder) (031980391398780) Hyperlipidemia associated with type 2 diabetes mellitus (E11.69) Active confirmed Vital Signs Blood pressure systolic 136 mm Hg 03/19/20 24 Blood pressure diastolic 80 mm Hg 024 Heart Rate 102 /min 03/19/2024 Height 65 in 03/19/2024 Weight 314.6 lbs 03/19/2024 BMI 52.35 kg/m2 03/19/2024 Encounters Encounter Location Date Provider Diagnosis [facility] [address] [place], [place] [id number] 03/19/2024 Odette Young Type 2 diabetes mellitus without complication, without long-term current use of insulin E11.9 Assessments Encounter Date Diagnosis (ICD Code) Assessment Notes Treatment Notes Treatment Clinical Notes Section Notes 03/19/2024 Type 2 diabetes mellitus without complication, without long-term current use of insulin (ICD-10 - E11.9) Will check labs and urine. She has a cologuard at home she has just not done it yet. Plan Of Treatment Treatment Notes Assessment Notes Type 2 diabetes mellitus wit hout complication, without long-term current use of insulin Will check labs and urine. She has a cologuard at home she has just not done it yet. Next Appt Details Follow Up: via phone to repo rt test results, Reason: Provider Name:Odetteradha davis, 08/11/2025 04:00:00 PM, [address] [facility], [address], [place], [place], [id number], Progress Notes * MTZRODERICKB:1970 ( 54 yo F)Acc No.[id number]:03/19/2024 Progress Notes Patient: BLACK COHEN Provider: TORI Wiley :1970 A ge:53 Y S ex:Female Date:03/19/2024 Address:[address] [place] [id number] Pcp:Lisha Galloway Subjective: * Chief Complaints: * 1 . 3 month f/u. 2. Needs labs, colon cancer screening, & shingles vaccine. * HPI: H PI: 53 year old female presents with c/o Here for follow up on:?Pt is here for a 3 month f/u. Pt sts she is doing well and has lost weight. She feels much better.. * ROS: D ERMATOLOGY: no R wale. n o H alessandra. G ASTROENTEROLOGY: no N ausea. n o V omiting. n o D iarrhea.? U ROLOGY: no D ifficulty urinating. n o B lood in urine. * Medical History: A llergies, Pre-Diabetic, Kidney Issues, Hypertension, Hypothyroid, Hyperlipidemia, Sepsis, Bacteremia, Bilateral Leg Stasis Dermatitia , Cellulitis of LLE, Morbid Obesity. * Surgical History: T ubal Ligation , Tonsilectomy . * Hospitalization/Major Diagno stic Procedure: C dennyulitis LLE, Lymphedemia, Strep Infection in blood, Hypotension; Sepsis- [facility] 12/2018, Acute Congestive Heart Failure, Cellulitis Hypertension, PRES- 01/06-, Rehabilitation for Stay- [facility] 01/14-. * Family History: F ather: 68 yrs, heart attack. M other: alive 73 yrs, asthma, COPD, Emph, osteoarthritis, osteoporosis, DM, heart issues, gallbladder removed, both hips relaced, DDD. 2 brother(s) . 2 son(s) . . * Social History: C URRENT TOBACCO USE: No . C affeine: yes, frequency:. Home smoke detector use: yes. Alcohol: yes, on occasion. * Medications: T aking Xyzal Allergy 24HR 5 MG Tablet 1 tab(s) orally once a day (in the evening) , Taking Aspirin Adult Low Dose 81 MG Tablet Delayed Release 1 tab(s) orally once a day , Taking Vitamin D3 125 MCG (5000 UT) Capsule 1 cap(s) orally once a day , Taking Valsartan 160 MG Tablet 1 tab(s) orally once a day , Taking Furosemide 40 MG Tablet 1 tab(s) orally once a day , Taking Carvedilol 3.125 MG Tablet 1 tab(s) orally 2 times a day , Taking Spironolactone 25 MG Tablet TAKE 1 TABLET BY MOUTH DAILY , Taking Atorvastatin Calcium 20 MG Tablet TAKE 1 TABLET BY MOUTH EVERY DAY , Taking Mounjaro 7.5 MG/0.5ML Solution Pen-injector 7.5 mg Subcutaneous once a week , Medication List reviewed and reconciled with the patient * Allergies: N .K.D.A. Objective: * Vitals: W t:314.6, Temp:98.2, BP:136/80, HR:102, O2 Sat:96% on RA, Nurse:JARRETT, Ht: 65, BMI:52.35. * Examination: G eneral Examination: General Appearance: N AD. C hest: n ormal shape and expansion. H eart: R SR. L ungs: c lear to auscultation. A bdomen: bowel sounds present, soft and nontender, no organomegaly or masses. E xtremities: trace leg edema. Assessment: * Assessment: 1. T ype 2 diabetes mellitus without complication, without long-term current use of insulin - E11.9 (Primary) Plan: * Treatment: Value Reference Range A /G Ratio 1.2 1.1-2.5 - * A lbumin 4.2 3.5-5.3 - g/dL * A lkaline Phosphatase 122 H 35-121 - IU/L * A LT (SGPT) 25 <5-47 - IU/L * A ST (SGOT) 19 <5-40 - IU/L * B ilirubin, Total 0.6 <0.2-1.2 - mg/dL * B UN 15 6-20 - mg/dL * C alcium 10.3 8.6-10.4 - mg/dL * C hloride 97 97-108 - mmol/L * C O2 29 22-32 - mmol/L * C reatinine 1.13 H 0.50-1.00 - mg/dL * G lucose 93 65-99 - mg/dL * P otassium 4.5 3.5-5.3 - mmol/L * S odium 138 135-145 - mmol/L * P rotein 7.8 6.0-8.3 - g/dL * e GFR by Creatinine 58 L >59 - mL/min/1.73m2 * Odette Young 03/30/2024 1 1:07:11 PM > Please let patient know her renal function was slightly elevated, increase water intake and recheck a BMP [facility] 03/31/2024 11:11:06 AM > Left message for return Stefany Rucker 03/31/2024 11:48:17 AM > Pt informed ?LAB: Glycohemoglobin A1c (in house) (Collection Date & Time - 03/19/2024)? 5.9%* Value Reference Range g lycohemoglobin 5.9% 5 - 6.5 % * Carole Sanches 03/19/2024 5:2 0:34 PM >Odette Young 03/20/2024 8:55:35 AM > see TE ?LAB: P-Microalbumin/Creatinine, Random Urine Sample (Collection Date & Time - 01/18/2025)?see 11/11/2024* Carole Sanches 03/19/2024 5:2 1:24 PM > urine specimen not leftGoCarole montelongo 06/26/2024 10:18:19 AM > pt will be due for check up on 07/20/24ChristopherCarole montelongo 07/21/2024 2:23:20 PM > left message for pt to call and schedule 3 month check up w/ labsGojaydaCarole 01/05/2025 01:23:27 PM EDT > see 11/11/24 Notes: Will check labs and urine. She has a cologuard at home she has just not done it yet.? * Procedure Codes: [address] [place], [address] CAPILLARY BLOOD DRAW, [address] GLYCATED HEMOGLOBIN TEST, Modifiers: QW * Follow Up: v ia phone to report test results * Images: Billing Information: * Visit Code: 06627 Office Visit, Est Pt., Level 3. * Procedure Codes: [address] [place]. [address] CAPILLARY BLOOD DRAW. 003[address] GLYCATED HEMOGLOBIN TEST. Modifiers: QW * Electronic signature of TORI Galdamez on 02/22/2025 at 02:55 PM EDT Sign off status: Pending * Provider: TORI Wiley Date: 1 Generated for Katerynai ng/Faakirag/eTransmitting on: 0 02/22/2025 02:55 PM EDT History and Physical Notes * HPI (History of Present Illness) Category Sub-Category Detail Notes Category Not es HPI Here for follow up on: Pt is her e for a 3 month f/u. Pt sts she is doing well and has lost weight. She feels much better. Examination Category Sub-Category Detail Notes Category Not es General Examination Heart: RSR Lungs: clear to auscultatio n Abdomen: bowel sounds present , soft and nontender, no organomegaly or masses Extremities: trace leg edema General Appearance: NAD Chest: normal shape and exp ansion
--- OUTSIDE RECORDS SUMMARY | 2024-08-07 09:15 | XMS_ITS ---
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 Name Role Phone Lisha Galloway Primary Care Provider RalfOdette sheehan Unavailable [phone] Allergies No Known Allergies Results Component Value Reference Range Notes Glycohemoglobin A1c (in hous e) Reviewed date:08/13/2024 04:38:48 PM Interpretation:5.5% Performing Lab: Notes/Report: 5.5% glycohemoglobin 5.5% 5 - 6.5 % P-Comprehensive Metabolic Pa laura (CMP) Reviewed date:08/13/2024 04:38:48 PM Interpretation:Cr 1.05 Performing Lab: Notes/Report: CLIA: [id number] Agapito Veras MD, Build Automation Engineer [facility] , [address], [place] [address] Test performed by [facility] Sodium 138 135-145 mmol/L Potassium 4.9 3.5-5.3 mmol/L Chloride 100 97-108 mmol/L CO2 29 22-32 mmol/L Glucose 68 65-99 mg/dL BUN 12 6-20 mg/dL Creatinine 1.05 0.50-1.00 mg/dL Calcium 9.4 8.6-10.4 mg/dL eGFR by Creatinine 63 >59 mL/min/1.73m2 Protein 6.9 6.0-8.3 g/dL Albumin 3.9 3.5-5.3 g/dL Alkaline Phosphatase 106 35-121 IU/L ALT (SGPT) 14 <5-47 IU/L AST (SGOT) 13 <5-40 IU/L Bilirubin, Total 0.4 <0.2-1.2 mg/dL A/G Ratio 1.3 1.1-2.5 P-Lipid Panel Reviewed date:08/13/2024 04:38:48 PM Interpretation:chol 201, trigs 189, hdl 33, chol/hdl 6.09, non-hdl 168, ldl 130, ldl/hdl 3.9 Performing Lab: Notes/Report: Test performed by [employer] [address] , [place] [address] Agapito Veras MD, Build Automation Engineer CLIA: [id number] Cholesterol 201 <200 mg/dL Triglycerides 189 <150 mg/dL HDL Cholesterol 33 >39 mg/dL Cholesterol / HDL Ratio 6.09 0.00-4.44 Ratio Non-HDL Cholesterol 168 <130 mg/dL LDL Cholesterol (Calculation) 130 <130 mg/dL LDL Cholesterol Levels* Less than 100 mg/dL Optimal 100 to 129 mg/dL Near Optimal/ Above Optimal 130 to 159 mg/dL Borderline High 160 to 189 mg/dL High 190 mg/dL and above Very High * Categories as recommended by the 2004 ATPIII guidelines LDL/HDL Ratio 3.9 <3.3 Ratio LDL Cholesterol Patient History Test Date: 08/02/2023 LDL Results: 229 Units: mg/dL % Change: - Test Date: 11/15/2023 LDL Results: 120 Units: mg/dL % Change: -47% Test Date: 08/07/2024 LDL Results: 130 Units: mg/dL % Change: +8% P-TSH reflex to FT4 Reviewed date:08/13/2024 04:38:48 PM Interpretation:Normal Performing Lab: Notes/Report: Test performed by [facility] [address] [place] [address] , [address] , [place] [address] Agapito Veras MD, Build Automation Engineer CLIA: [id number] TSH reflex to FT4 2.90 0.43-5.25 mU/L Mammogram Reviewed date:11/27/2024 04:12:33 PM Interpretation:another ordered Performing Lab: Notes/Report: another ordered REASON FOR VISIT 3 month check, Needs labs, mammogram, colon cancer screening, & shingles vaccine Medications Medication SIG (Take, Route, Frequency, Duration) Notes Start Date End Date Status Spironolactone 25 MG 1 tablet Orally Onc e a day; Duration: 90 days Active Carvedilol 3.125 MG 1 tab(s) orally 2 ti mes a day; Duration: 90 days Active Mounjaro 12.5 MG/0.5ML 12.5 mg Subcutane ous once a week 07/01/2024 Active Furosemide 40 MG 1 tab(s) orally once a day; Duration: 90 days Active Atorvastatin Calcium 20 MG 1 tablet Oral ly Once a day; Duration: 90 days Active Vitamin D3 125 MCG (5000 UT) 1 cap(s) orally once a day; Duration: 30 day(s) Active Aspirin Adult Low Dose 81 MG 1 tab(s) orally once a day; Duration: 30 day(s) Active Xyzal Allergy 24HR 5 MG 1 tab(s) orally once a day (in the evening); Duration: 30 day(s) Active Valsartan 160 MG 1 tab(s) orally once a day; Duration: 90 days Active Vital Signs Blood pressure systolic 140 mm Hg 08/08/19 25 Blood pressure diastolic 70 mm Hg 025 Heart Rate 82 /min 08/07/2024 Height 65 in 08/07/2024 Weight 313.4 lbs 08/07/2024 BMI 52.15 kg/m2 08/07/2024 Encounters Encounter Location Date Provider Diagnosis [place] [address] [facility] [address] [place] [id number] 08/07/2024 Odette Young Type 2 diabetes gareth itus without complication, without long-term current use of insulin E11.9 ; Colon cancer screening Z12.11 ; Screening mammogram, encounter for Z12.31 ; Morbid obesity E66.01 and Mixed hyperlipidemia E78.2 Assessments Encounter Date Diagnosis (ICD Code) Assessment Notes Treatment Notes Treatment Clinical Notes Section Notes 08/07/2024 Type 2 diabetes mellitus without complication, without long-term current use of insulin (ICD-10 - E11.9) 08/07/2024 Colon cancer screening (ICD-10 - Z12.11) 08/07/2024 Screening mammogram, encounter for (ICD-10 - Z12.31) 08/07/2024 Morbid obesity (ICD-10 - E66.01) 08/07/2024 Mixed hyperlipidemia (ICD-10 - E78.2) Plan Of Treatment Medication Medication Name Sig Start Date Stop Date Notes Mounjaro 12.5 MG/0.5ML 12.5 mg Subcutaneous once a week Pending Test Test Name Order Date Cologuard 08/07/2024 Next Appt Details Follow Up: via phone to repo rt test results, Reason: Provider Name:Odette davis, 08/11/2025 04:00:00 PM, [address], [address], [place], [id number], Progress Notes * AMANDEEP MTZADOB:1970 ( 54 yo F)Acc No.[id number]:08/07/2024 Progress Notes Patient: BLACK COHEN Provider: TORI Wiley :1970 A ge:54 Y S ex:Female Date:08/07/2024 Address:[address] [place] [address] [place], [id number] Pcp:Lisha Galloway Subjective: * Chief Complaints: * 1 . 3 month check. 2. Needs labs, mammogram, colon cancer screening, & shingles vaccine. * HPI: H PI: 54 year old female presents with c/o Patient is here today for?Pt is here today for a 3 month check up. Pt sts she is doing well and has no concerns at this time. * ROS: D ERMATOLOGY: no R wale. [...] Lymphedemia, Strep Infection in blood, Hypotension; Sepsis- [facility] 12/2018, Acute Congestive Heart Failure, Cellulitis Hypertension, PRES- 01/06-, Rehabilitation for Stay- [facility] 01/14-. * Family History: F ather: 68 yrs, heart attack. M other: alive 74 yrs, asthma, COPD, Emph, osteoarthritis, osteoporosis, DM, [...] day , Taking Spironolactone 25 MG Tablet 1 tablet Orally Once a day , Taking Atorvastatin Calcium 20 MG Tablet 1 tablet Orally Once a day , Taking Mounjaro 12.5 MG/0.5ML Solution Auto-injector 12.5 mg Subcutaneous once a week , Medication List reviewed and reconciled with the patient * Allergies: N .K.D.A. Objective: * Vitals: W t:313.4, Temp:98.4, BP:140/70, HR:82, O2 Sat:96% on RA, Nurse:mojgan, Ht: 65, Repeat BP:120/68, BMI:52.15. * Examination: G eneral Examination: General Appearance: N AD. H EENT: u nremarkable.?Oral cavity: n o lesions, mucosa moist and WNL, no erythema. N vero: s upple, no lymphadenopathy. C hest: n ormal shape and expansion. H eart: R SR. L ungs: c lear to auscultation. A bdomen: bowel sounds present, soft and nontender. N eurologic Exam: I ntact, gait normal. S kin: n ormal, no rash. P eripheral pulses: n ormal (2+) bilaterally. E xtremities: 2+ leg edema. Assessment: * Assessment: 1. T ype 2 diabetes mellitus without complication, without long-term current use of insulin - E11.9 (Primary) 2 . C olon cancer screening - . 3 . S creening mammogram, encounter for - 4 . M orbid obesity - E66.01 5 . M ixed hyperlipidemia - E78.2 Plan: * Treatment: Value Reference Range A /G Ratio 1.3 1.1-2.5 - * A lbumin 3.9 3.5-5.3 - g/dL * A lkaline Phosphatase 106 35-121 - IU/L * A LT (SGPT) 14 <5-47 - IU/L * A ST (SGOT) 13 <5-40 - IU/L * B ilirubin, Total 0.4 <0.2-1.2 - mg/dL * B UN 12 6-20 - mg/dL * C alcium 9.4 8.6-10.4 - mg/dL * C hloride 100 97-108 - mmol/L * C O2 29 22-32 - mmol/L * C reatinine 1.05 H 0.50-1.00 - mg/dL * G lucose 68 65-99 - mg/dL * P otassium 4.9 3.5-5.3 - mmol/L * S odium 138 135-145 - mmol/L * P rotein 6.9 6.0-8.3 - g/dL * e GFR by Creatinine 63 >59 - mL/min/1.73m2 * Odette Young 08/13/2024 4: 38:40 PM > see TE ?LAB: Glycohemoglobin A1c (in house) (Collection Date & Time - 08/07/2024)? 5.5%* Value Reference Range g lycohemoglobin 5.5% 5 - 6.5 % * Laura Ferrara 08/07/2024 2:09:4 0 PM > Odette Young 08/13/2024 4:38:40 PM > see TE 2.?Colon cancer screening?LAB: Cologuard* Odette Young 08/07/2024 4:5 8:27 PM >Carole Sanches 08/10/2024 04:27:58 PM > faxed 3.?Screening mammogram, encounter for?Imaging: Mammogram (Performed Date - 11/16/2024)?another ordered* Odette Young 08/07/2024 4:5 9:11 PM >Kaia Puckett 08/10/2024 9:25:37 AM > faxed to [facility] Radha [place] 11/16/2024 10:32:49 AM EDT >no record, another one orderedOdette Young 11/27/2024 04:12:20 PM EDT >noted 4.?Morbid obesity?LAB: P-TSH reflex to FT4 (Collection Date & Time - 08/07/2024 12:45 PM)? Normal* Value Reference Range T SH reflex to FT4 2.90 0.43-5.25 - mU/L * HectorOdette Vargas 08/13/2024 4: 38:40 PM > see TE 5.?Mixed hyperlipidemia?LAB: P-Lipid Panel (Collection Date & Time - 08/07/2024 12:45 PM)?chol 201, trigs 189, hdl 33, chol/hdl 6.09, non-hdl 168, ldl 130, ldl/hdl 3.9* Value Reference Range C holesterol / HDL Ratio 6.09 H 0.00-4.44 - Ratio * C holesterol 201 H <200 - mg/dL * H DL Cholesterol 33 L >39 - mg/dL * L DL Cholesterol (Calculation) 130 H <130 - mg/d L * L DL/HDL Ratio 3.9 H <3.3 - Ratio * N on-HDL Cholesterol 168 H <130 - mg/dL * T riglycerides 189 H <150 - mg/dL * HectorOdette Vargas 08/13/2024 4: 38:40 PM > see TE * Procedure Codes: 8 3036 GLYCATED HEMOGLOBIN TEST, Modifiers: QW , 3044F HG A1C LEVEL LT 7.0%, 3074F SYST BP LT 130 MM HG, 3078F DIAST BP < 80 MM HG * Follow Up: v ia phone to report test results * Images: Billing Information: * Visit Code: 84996 Office Visit, Est Pt., Level 4. * Procedure Codes: 51768 GLYCATED HEMOGLOBIN TEST. Modifiers: QW 3044F HG A1C LEVEL LT 7.0%. 3074F SYST BP LT 130 MM HG. 3078F DIAST BP < 80 MM HG. * Electronic signature of TORI Galdamez on 02/22/2025 at 02:54 PM EDT Sign off status: Pending * Provider: TORI Wiley Date: 0 08/07/2024 Generated for Violetta mcdowell/Shine/Wesitting on: 0 02/22/2025 02:54 PM EDT History and Physical Notes * HPI (History of Present Illness) Category Sub-Category Detail Notes Category Not es HPI Patient is here today for Pt is here today for a 3 month check up. Pt sts she is doing well and has no concerns at this time Examination Category Sub-Category Detail Notes Category Not es General Examination HEENT: unremarkable Heart: RSR Lungs: clear to auscultatio n Abdomen: bowel sounds present , soft and nontender Extremities: 2+ leg edema General Appearance: NAD Skin: normal, no rash Neurologic Exam: Intact, gait normal Neck: supple, no lymphaden opathy Oral cavity: no lesions, mucosa m oist and WNL, no erythema Peripheral pulses: normal (2+) bilatera lly Chest: normal shape and exp ansion
--- OUTSIDE RECORDS SUMMARY | 2024-11-11 11:30 | XMS_ITS ---
Author Organization [facility] Address [address] [facility] [address] [place], [place] [id number] Care Team Providers Care Trading Manager Name Role Phone Lisha Galloway Primary Care Provider RalfOdette sheehan Unavailable [phone] Allergies No Known Allergies Results Component Value [...] 22 Performing Lab: Notes/Report: Test performed by [facility] [address] [place] [address] , [address], [place] [address] Agapito Veras MD, Dietetic Assistant CLIA: [id number] Sodium 138 135-145 mmol/L Potassium 4.2 3.5-5.3 [...] 142 Performing Lab: Notes/Report: Test performed by [facility], [address] , [address], [place] [address] Agapito Veras MD, Dietetic Assistant CLIA: [id number] Cholesterol 184 <200 mg/dL Triglycerides 160 <150 [...] Interpretation:Normal Performing Lab: Notes/Report: Test performed by [facility] [address] [place], [place] [address] [place] , [place] [address] Agapito Veras MD, Dietetic Assistant CLIA: [id number] TSH reflex to FT4 2.66 0.43-5.25 mU/L P-Microalbumin/Creatinine, R andom Urine Sample Reviewed date:11/13/2024 12:56:45 PM Interpretation:Normal Performing Lab: Notes/Report: Test performed by [facility] [address] [place] [address] , [place] [address] Agapito Veras MD, Dietetic Assistant CLIA: [id number] Albumin/Creatinine Ratio, Urine 4 0-30 ug/m g Microalbumin, Urine, Random 0.3 Creatinine, Urine 69.8 Mammogram Reviewed date:11/27/2024 04:19:11 PM Interpretation: Performing Lab: Notes/Report: REASON FOR VISIT 3 Month Check Up w/ Labs, Needs labs, mammogram, colon cancer screening, & shingles vaccine Medications Medication SIG (Take, Route, Frequency, Duration) Notes Start Date End Date Status Xyzal Allergy 24HR 5 MG 1 tab(s) orally once a day (in the evening); Duration: 30 day(s) Active Aspirin Adult Low Dose 81 MG 1 tab(s) orally once a day; Duration: 30 day(s) Active Vitamin D3 125 MCG (5000 UT) 1 cap(s) orally once a day; Duration: 30 day(s) Active Furosemide 40 MG TAKE 1 TABLET BY LAYTON TH DAILY Orally Once a day; Duration: 90 days Active Spironolactone 25 MG TAKE 1 TABLET BY MO UTH EVERY DAY Orally Once a day; Duration: 90 days Active Mounjaro 12.5 MG/0.5ML 12.5 mg Subcutane ous once a week Active Valsartan 160 MG 1 tab(s) orally once a day; Duration: 90 days Active Carvedilol 3.125 MG 1 tab(s) orally 2 ti mes a day; Duration: 90 days Active Atorvastatin Calcium 40 MG 1 tablet Oral ly Once a day; Duration: 90 days 08/14/2024 Active Vital Signs Blood pressure systolic 120 mm Hg 11/12/19 25 Blood pressure diastolic 80 mm Hg 025 Heart Rate 85 /min 11/11/2024 Height 65 in 11/11/2024 Weight 292.4 lbs 11/11/2024 BMI 48.65 kg/m2 11/11/2024 Encounters Encounter Location Date Provider Diagnosis [facility] [address], [place] [id number] 11/11/2024 Odette Young Type 2 diabetes gareth [...] BY LAYTON TH DAILY Orally Once a day; Duration: 90 days Spironolactone 25 MG TAKE 1 TABLET BY MO UTH EVERY DAY Orally Once a day; Duration: 90 days Mounjaro 12.5 MG/0.5ML 12.5 mg Subcutane ous once a week Valsartan 160 MG 1 tab(s) orally once a day; Duration: 90 days Carvedilol 3.125 MG 1 tab(s) orally 2 ti mes a day; Duration: 90 days Atorvastatin Calcium 40 MG 1 tablet Oral ly Once a day; Duration: 90 days 08/14/2024 Next Appt Details Follow Up: via phone to repo rt test results, Reason: Provider Name:Odette davis, 08/11/2025 04:00:00 PM, [address] [facility] [address] [facility], [address] [place] [address], [id number], Progress Notes * RODERICK MTZB:1970 ( 54 yo F)Acc No.[id number]:11/11/2024 Progress Notes Patient: BLACK COHEN Provider: TORI Wiley :1970 A ge:54 Y S ex:Female Date:11/11/2024 Address:[address] [place], [place] [id number] Pcp:Lisha Galloway Subjective: * Chief Complaints: * 1 . 3 Month Check Up w/ Labs. 2. Needs labs, mammogram, colon cancer screening, & shingles vaccine. * HPI: C ardiology: The patient is here for a check up on Hypertension and Diabetes. Pt states she doing good and denies any new concerns. Pt states she is needing refills sent to [facility] in [place]. Pt is not fasting. Denies : Chest [...] Lymphedemia, Strep Infection in blood, Hypotension; Sepsis- [facility] 12/2018, Acute Congestive Heart Failure, Cellulitis Hypertension, PRES- 01/06-, Rehabilitation for Stay- [facility] 01/14-. * Family History: F ather: [...] ungs: c lear to auscultation. A bdomen: b owel sounds present, soft and nontender, no organomegaly or masses, no guarding or rigidity. N eurologic Exam: I ntact, gait normal. S kin: n ormal, no rash. P eripheral pulses: n ormal (2+) bilaterally. E xtremities: n o leg edema. Assessment: * Assessment: 1. T ype 2 diabetes mellitus without complication, without long-term current use of insulin - E11.9 (Primary) 2 . E ssential hypertension - I10 3 . M orbid obesity - E66.01 4 . M ixed hyperlipidemia - E78.2 5 . S creening mammogram, encounter for - Z06.02 6 . C olon cancer screening - [...] by Creatinine 68 >59 - mL/min/1.73m2 * Odette Young 11/11/2024 0 3:55:39 PM EDT >room 5, Carole Jacques 11/13/2024 12:56:35 PM EDT > See phone encounter ?LAB: P-Microalbumin/Creatinine, Random Urine Sample (Collection Date & Time - 11/11/2024 02:57 PM)?Normal* Value Reference Range A lbumin/Creatinine Ratio, Urine 4 0-30 - ug /mg * C reatinine, Urine 69.8 - mg/dL * M icroalbumin, Urine, Random 0.3 - mg/dL * Odette Young 11/11/2024 0 [...] to FT4 2.66 0.43-5.25 - mU/L * RalfsissyOdette Sam 11/11/2024 0 3:55:39 PM EDT >room 5, [...] See phone encounter 4.?Screening mammogram, encounter for?Imaging: Mammogram (Performed Date - 11/20/2024)* Kaia Puckett 11/13/2024 01:4 3:15 PM EDT > faxed to [facility] SchedulingHector Odette Vargas 11/27/2024 04:19:08 PM EDT >see TE 5.?Colon cancer screening?LAB: Annmarie (Collection Date & Time - 11/19/2024)* Myron Carole 11/19/2024 10: 09:05 AM EDT > was previously ordered in August. Pt has a kit at home according to [employer] website. sent to Savita Otero 11/19/2024 10:36:48 AM EDT >noted * Procedure Codes: 8 3036 GLYCATED HEMOGLOBIN TEST, Modifiers: QW , 41273 CBC WITH AUTO DIFF, 3044F HG A1C LEVEL LT 7.0%, 1036F TOBACCO NON-USER, G8950 PREHTN/HTN BP DOC INDCD F/U DOC, G8752 MOST RECENT SYSTOLIC BP < 140MM HG, G8754 MOST RECENT DIASTOLIC BP < 90MM HG * Follow Up: v ia phone to report test results * Images: Billing Information: * Visit Code: 66050 Office Visit, Est Pt., Level 4. * Procedure Codes: 78379 GLYCATED HEMOGLOBIN TEST. Modifiers: QW 05376 CBC WITH AUTO DIFF. 3044F HG A1C LEVEL LT 7.0%. 1036F TOBACCO NON-USER. G8950 PREHTN/HTN BP DOC INDCD F/U DOC. G8752 MOST RECENT SYSTOLIC BP < 140MM HG. G8754 MOST RECENT DIASTOLIC BP < 90MM HG. * Electronic signature of TORI Galdamez on 02/22/2025 at 02:54 PM EDT Sign off status: Pending * Provider: TORI Wiley Date: 0 11/11/2024 Generated for Violetta mcdowell/Shine/[place]es[place] on: 0 02/22/2025 [...]
--- OUTSIDE RECORDS SUMMARY | 2025-02-11 05:15 | XMS_ITS ---
Author Organization [facility] Address [address] [facility] [address] [place], [place] [id number] Care Team Providers Care Cargo Service Agent Name Role Phone Lisha Galloway Primary Care Provider [phone] RalfOdette sheehan Unavailable [phone] Allergies No Known Allergies Results Component Value Reference Range Notes CBC Venipuncture (in house) Reviewed date:02/12/2025 12:17:09 AM Interpretation: Performing Lab: Notes/Report: wbc 7.1 3.5 - 10 lymph 16.9 15 - 50 mid 5.1 2 - 15 gran 78.0 35 - 80 rbc 5.21 3.5 - 5.5 hgb 15.1 11.5 - 16.5 hct 45.9 35 - 55 mcv 88.1 75 - 100 mch 29.1 25 - 35 mchc 33.0 31 - 38 platlet 345 100 - 400 Glycohemoglobin A1c (in hous e) Reviewed date:02/12/2025 01:24:11 PM Interpretation:5.2% Normal Performing Lab: Notes/Report: 5.2% Normal glycohemoglobin 5.2% 5 - 6.5 % P-Comprehensive Metabolic Pa laura (CMP) Reviewed date:02/12/2025 01:24:28 PM Interpretation:Normal Performing Lab: Notes/Report: Test performed by [facility] [address] [place] [address] , [address], [place] [address] Agapito Veras MD, Gear Lapping Machine Operator CLIA: [id number] Sodium 141 135-145 mmol/L Potassium 4.7 3.5-5.3 mmol/L Chloride 100 97-108 mmol/L CO2 28 20-32 mmol/L Glucose 91 65-99 mg/dL BUN 15 6-20 mg/dL Creatinine 0.97 0.50-1.00 mg/dL Calcium 10.3 8.6-10.4 mg/dL eGFR by Creatinine 69 >59 mL/min/1.73m2 Protein 7.5 6.0-8.3 g/dL Albumin 4.3 3.5-5.3 g/dL Alkaline Phosphatase 113 35-121 IU/L ALT (SGPT) 22 <5-47 IU/L AST (SGOT) 16 <5-40 IU/L Bilirubin, Total 0.6 <0.2-1.2 mg/dL A/G Ratio 1.3 1.1-2.5 P-Lipid Panel Reviewed date:02/12/2025 01:24:19 PM Interpretation:Normal Performing Lab: Notes/Report: Test performed by [facility], [address] , [address], [place] [address] Agapito Veras MD, Gear Lapping Machine Operator CLIA: [id number] Cholesterol 169 <200 mg/dL Triglycerides 89 <150 mg/dL HDL Cholesterol 41 >39 mg/dL Cholesterol / HDL Ratio 4.12 0.00-4.44 Ratio Non-HDL Cholesterol 128 <130 mg/dL LDL Cholesterol (Calculation) 110 <130 mg/dL LDL Cholesterol Levels* Less than 100 mg/dL Optimal 100 to 129 mg/dL Near Optimal/ Above Optimal 130 to 159 mg/dL Borderline High 160 to 189 mg/dL High 190 mg/dL and above Very High * Categories as recommended by the 2004 ATPIII guidelines LDL/HDL Ratio 2.7 <3.3 Ratio LDL Cholesterol Patient History Test Date: 08/07/2024 LDL Results: 130 Units: mg/dL % Change: +8% Test Date: 11/11/2024 LDL Results: 110 Units: mg/dL % Change: -15% Test Date: 02/11/2025 LDL Results: 110 Units: mg/dL % Change: 0% REASON FOR VISIT 3 months Medications Medication SIG (Take, Route, Frequency, Duration) Notes Start Date End Date Status Spironolactone 25 MG TAKE 1 TABLET BY MO UTH EVERY DAY Orally Once a day; Duration: 90 days Active Furosemide 40 MG TAKE 1 TABLET BY LAYOTN TH DAILY Orally Once a day; Duration: 90 days Active Atorvastatin Calcium 40 MG 1 tablet Oral ly Once a day; Duration: 90 days 08/14/2024 Active Carvedilol 3.125 MG 1 tab(s) orally [...] (in the evening); Duration: 30 day(s) Active Vital Signs Blood pressure systolic 118 mm Hg 02/12/20 25 Blood pressure diastolic 70 mm Hg 025 Heart Rate 86 /min 02/11/2025 Height 65 in 02/11/2025 Weight 269.8 lbs 02/11/2025 BMI 44.89 kg/m2 02/11/2025 Encounters Encounter Location Date Provider Diagnosis [facility] 36 [facility] [address] [place], [place] [id number] 02/11/2025 Odette Young Type 2 diabetes gareth itus without complication, without long-term current use of insulin E11.9 ; Essential hypertension I10 ; Morbid obesity E66.01 and Mixed hyperlipidemia E78.2 Assessments Encounter Date Diagnosis (ICD Code) Assessment Notes Treatment Notes Treatment Clinical Notes Section Notes 02/11/2025 Type 2 diabetes mellitus without complication, without long-term current use of insulin (ICD-10 - E11.9) 02/11/2025 Essential hypertension (ICD-10 - I10) 02/11/2025 Morbid obesity (ICD-10 - E66.01) 02/11/2025 Mixed hyperlipidemia (ICD-10 - E78.2) Plan Of Treatment Medication Medication Name Sig Start Date Stop Date Notes Mounjaro 12.5 MG/0.5ML 12.5 mg Subcutaneous once a week Next Appt Details Follow Up: 6 Months, Reason: Provider Name:Odette Stephen y, 08/11/2025 04:00:00 PM, [address] [facility] 36 [facility], [address], [place], [id number], Progress Notes * RODERICK MTZB:1970 ( 54 yo F)Acc No.[id number]:02/11/2025 Progress Notes Patient: BLACK COHEN Provider: TORI Wiley :1970 A ge:54 Y S ex:Female Date:02/11/2025 Address:[address] [place] [address] [id number] Pcp:Lisha Galloway Subjective: * Chief Complaints: * 1 . 3 months. * HPI: H PI: 54 year old [...] Lymphedemia, Strep Infection in blood, Hypotension; Sepsis- [facility] 12/2018, Acute Congestive Heart Failure, Cellulitis Hypertension, PRES- 01/06-, Rehabilitation for Stay- [facility] 01/14-. * Family History: F ather: [...] Tablet TAKE 1 TABLET BY MOUTH DAILY Orally Once a day , Taking Spironolactone 25 MG Tablet TAKE 1 TABLET BY MOUTH EVERY DAY Orally Once a day , Taking Mounjaro 12.5 MG/0.5ML Solution Auto- injector 12.5 mg Subcutaneous once a week , Medication List reviewed and reconciled with the patient * Allergies: N .K.D.A. Objective: * Vitals: W t: 269.8, Temp: 98.6, BP: 118/70, HR: 86, O2 Sat: 98% on RA, Nurse: elva, Ht: 65, BMI:44.89. * Examination: G eneral Examination: General Appearance: N AD. H EENT: u nremarkable.?Oral cavity: n o lesions, mucosa moist and WNL, no erythema. N vero: s upple, no lymphadenopathy. C hest: n ormal shape and expansion. H eart: R SR. L ungs: c lear to auscultation. A bdomen: b owel sounds present, soft and nontender. N eurologic [...] 4 . M ixed hyperlipidemia - E78.2 Plan: * Treatment: Value Reference Range A /G Ratio 1.3 1.1-2.5 - * A lbumin 4.3 3.5-5.3 - g/dL * A lkaline Phosphatase 113 35-121 - IU/L * A LT (SGPT) 22 <5-47 - IU/L * A ST (SGOT) 16 <5-40 - IU/L * B ilirubin, Total 0.6 <0.2-1.2 - mg/dL * B UN 15 6-20 - mg/dL * C alcium 10.3 8.6-10.4 - mg/dL * C hloride 100 97-108 - mmol/L * C O2 28 20-32 - mmol/L * C reatinine 0.97 0.50-1.00 - mg/dL * G lucose 91 65-99 - mg/dL * P otassium 4.7 3.5-5.3 - mmol/L * S odium 141 135-145 - mmol/L * P rotein 7.5 6.0-8.3 - g/dL * e GFR by Creatinine 69 >59 - mL/min/1.73m2 * Odette Young 02/11/2025 0 9:44:51 AM EDT >room 4, A[place] 02/12/2025 01:24:24 PM EDT >pt informed ?LAB: Glycohemoglobin A1c (in house) (Collection Date & Time - 02/11/2025)? 5.2% Normal* Value Reference Range g lycohemoglobin 5.2% 5 - 6.5 % * Josias Laura 02/11/2025 10:2 0:21 AM EDT >Josias Laura 02/12/2025 01:24:01 PM EDT >pt informed 2.?Essential hypertension?LAB: CBC Venipuncture (in house) (Collection Date & Time - 02/11/2025)* Value Reference Range w bc 7.1 3.5 - 10 * l ymph 16.9 15 - 50 * m id 5.1 2 - 15 * g ran 78.0 35 - 80 * r bc 5.21 3.5 - 5.5 * h gb 15.1 11.5 - 16.5 * h ct 45.9 35 - 55 * m cv 88.1 75 - 100 * m ch 29.1 25 - 35 * m chc 33.0 31 - 38 * p latlet 345 100 - 400 * Laura Ferrara 02/11/2025 10:1 9:38 AM EDT >Odette Young 02/12/2025 12:17:02 AM EDT > 3.?Mixed hyperlipidemia?LAB: P-Lipid Panel (Collection Date & Time - 02/11/2025 08:46 AM)?Normal* Value Reference Range C holesterol / HDL Ratio 4.12 0.00-4.44 - Ratio * C holesterol 169 <200 - mg/dL * H DL Cholesterol 41 >39 - mg/dL * L DL Cholesterol (Calculation) 110 <130 - mg/d L * L DL/HDL Ratio 2.7 <3.3 - Ratio * N on-HDL Cholesterol 128 <130 - mg/dL * T riglycerides 89 <150 - mg/dL * Odette Young 02/11/2025 0 9:44:51 AM EDT >room 4, Laura Rollins 02/12/2025 01:24:15 PM EDT >pt informed * Procedure Codes: 8 3036 GLYCATED HEMOGLOBIN TEST, Modifiers: QW , 54005 CBC WITH AUTO DIFF, 3044F HG A1C LEVEL LT 7.0%, 1036F TOBACCO NON-USER, 3074F SYST BP LT 130 MM HG, 3078F DIAST BP < 80 MM HG * Follow Up: 6 Months * Images: Billing Information: * Visit Code: 19950 Office Visit, Est Pt., Level 4. * Procedure Codes: 56764 GLYCATED HEMOGLOBIN TEST. Modifiers: QW 79215 CBC WITH AUTO DIFF. 3044F HG A1C LEVEL LT 7.0%. 1036F TOBACCO NON-USER. 3074F SYST BP LT 130 MM HG. 3078F DIAST BP < 80 MM HG. * Electronic signature of TORI Galdamez on 02/22/2025 at 02:55 PM EDT Sign off status: Pending * Provider: TORI Wiley Date: 0 02/11/2025 Generated for Violetta mcdowell/Shine/Danni on: 0 02/22/2025 02:55 PM EDT History [...] sounds present , soft and nontender Extremities: no leg edema General Appearance: NAD Skin: normal, no rash Neurologic Exam: Intact, gait normal Neck: supple, no lymphaden opathy Oral cavity: no lesions, mucosa m oist and WNL, no erythema Peripheral pulses: normal (2+) bilatera lly Chest: normal shape and exp ansion
--- OUTSIDE RECORDS SUMMARY | 2025-02-22 14:56 | XMS_ITS | Patient Health Record ---
Author Organization [facility] Address [address] [id number] Care Team Providers Care Proof Carrier Name Role Phone Lisha Galloway Primary Care Provider RalfOdette sheehan Unavailable [phone] Allergies No Known Allergies Results Component Value Reference Range Notes Glycohemoglobin A1c (in hous e) Reviewed date:08/13/2024 04:38:48 PM Interpretation:5.5% Performing Lab: Notes/Report: 5.5% glycohemoglobin 5.5% 5 - 6.5 % P-Comprehensive Metabolic Pa laura (CMP) Reviewed date:08/13/2024 04:38:48 PM Interpretation:Cr 1.05 Performing Lab: Notes/Report: Test performed by [employer], [email or web address] [facility] , [address], [place] [address] Agapito Veras MD, [employer] CLIA: [id number] Sodium 138 135-145 mmol/L Potassium 4.9 3.5-5.3 [...] 3.9 Performing Lab: Notes/Report: Test performed by [email or web address] [address] , [place] [address] Agapito Veras MD, [employer] CLIA: [id number] Cholesterol 201 <200 mg/dL Triglycerides 189 <150 [...] Interpretation:Normal Performing Lab: Notes/Report: Test performed by [email or web address] [address] , [place] [address] Agapito Veras MD, [employer] CLIA: [id number] TSH reflex to FT4 2.90 0.43-5.25 mU/L Mammogram Reviewed date:11/27/2024 04:12:33 PM Interpretation:another ordered Performing Lab: Notes/Report: another ordered CBC Venipuncture (in house) Reviewed date:11/13/2024 12:56:45 [...] 22 Performing Lab: Notes/Report: Test performed by [employer] [employer] [address] [place] [address] , [address], [place] [address] Agapito Veras MD, [employer] CLIA: [id number] Sodium 138 135-145 mmol/L Potassium 4.2 3.5-5.3 [...] 142 Performing Lab: Notes/Report: Test performed by [employer] [address] [place] [address] , [address], [place] [address] Agapito Veras MD, [employer] CLIA: [id number] Cholesterol 184 <200 mg/dL Triglycerides 160 <150 [...] Interpretation:Normal Performing Lab: Notes/Report: Test performed by [facility], [address] , [place] [address] Agapito Veras MD, [employer] CLIA: [id number] TSH reflex to FT4 2.66 0.43-5.25 mU/L P-Microalbumin/Creatinine, R andom Urine Sample Reviewed date:11/13/2024 12:56:45 PM Interpretation:Normal Performing Lab: Notes/Report: Test performed by [email or web address] [address] , [place] [address] Agapito Veras MD, [employer] CLIA: [id number] Albumin/Creatinine Ratio, Urine 4 0-30 ug/m g Microalbumin, Urine, Random 0.3 Creatinine, Urine 69.8 Mammogram Reviewed date:11/27/2024 04:19:11 PM Interpretation: Performing Lab: Notes/Report: P-Lipid Panel Reviewed date:02/12/2025 01:24:19 PM Interpretation:Normal Performing Lab: Notes/Report: Test performed by [email or web address] [address] , [address], [place] [address] Agapito Veras MD, [employer] CLIA: [id number] Cholesterol 169 <200 mg/dL Triglycerides 89 <150 [...] Results: 110 Units: mg/dL % Change: 0% P-Comprehensive Metabolic Pa laura (CMP) Reviewed date:02/12/2025 01:24:28 PM Interpretation:Normal Performing Lab: Notes/Report: Test performed by [employer] [address] [facility] , [address], [place] [address] Agapito Veras MD, [employer] CLIA: [id number] Sodium 141 135-145 mmol/L Potassium 4.7 3.5-5.3 [...] 0.6 <0.2-1.2 mg/dL A/G Ratio 1.3 1.1-2.5 Glycohemoglobin A1c (in hous e) Reviewed date:02/12/2025 01:24:11 PM Interpretation:5.2% Normal Performing Lab: Notes/Report: 5.2% Normal glycohemoglobin 5.2% 5 - 6.5 % CBC Venipuncture (in house) Reviewed date:02/12/2025 12:17:09 [...] - 38 platlet 345 100 - 400 P-Comprehensive Metabolic Pa laura (CMP) Reviewed date:03/31/2024 11:48:27 AM Interpretation:Cr 1.13, gfr 58, alk phos 122 Performing Lab: Notes/Report: Test performed by [employer], [email or web address] [address] [place] [address] , [address], [place] [address] Agapito Veras MD, [employer] CLIA: [id number] Sodium 138 135-145 mmol/L Potassium 4.5 3.5-5.3 [...] Interpretation:see 11/11/2024 Performing Lab: Notes/Report: see 11/11/2024 Glycohemoglobin A1c (in hous e) Reviewed date:03/20/2024 08:55:38 AM Interpretation:5.9% Performing Lab: Notes/Report: 5.9% glycohemoglobin 5.9% 5 - 6.5 % Reason For Referral No Information Medications Medication [...] mes a day; Duration: 90 days Active Valsartan 160 MG 1 tab(s) orally [...] (in the evening); Duration: 30 day(s) Active Mounjaro 12.5 MG/0.5ML 12.5 mg Subcutane ous once a week Active Immunizations Vaccine Route Administration Date Status Comme nts COVID 19 Moderna Unknown 10/20/2020 Administered Tetanus Tdap-Adacel (over 7yrs) IM Intramuscular 06/14/2021 Administered Problems Problem Type SNOMED Code ICD Code Onset Dates Problem Status W/U Status Risk Notes Problem Essential hypertension (32967392) Essential hypertension (I10) Active confirmed Problem Morbid obesity (969170626) Morbid obesity (E66.01) Active confirmed Problem Body mass index 40+ - severely obese (413834364) BMI 50.0-59.9, adult (Z68.43) Active confirmed Problem Obesity (798349041) Obesity (E66.9) Active confirmed Problem History of sepsis (203317395146342) History of sepsis (Z86.19) Active confirmed Problem Mixed hyperlipidemia (170725190) Mixed hyperlipidemia (E78.2) Active confirmed Problem Hyperlipidemia due to type 2 diabetes mellitus (disorder) (957327772450212) Hyperlipidemia associated with type 2 diabetes mellitus (E11.69) Active confirmed Problem Lichen planus (7163568) Lichen planus (L43.9) Active confirmed Problem Type II diabetes mellitus without complication (437302119) Type 2 diabetes mellitus without complication, without long-term current use of insulin (E11.9) Active confirmed Problem Aortic valve sclerosis (77882350) Aortic valve sclerosis (I35.8) Active confirmed Problem History of encephalopathy (Z86.69) Active confirmed Vital Signs Heart Rate 86 /min 02/11/2025 Blood pressure diastolic 70 mm Hg 02/11/2025 Height 65 in 02/11/2025 Blood pressure systolic 118 mm Hg 02/11/2025 Weight 269.8 lbs 02/11/2025 BMI 44.89 kg/m2 02/11/2025 Encounters Encounter Location Date Provider Diagnosis [facility] [address] [id number] 03/19/2024 Odette Hector Type 2 diabetes gareth itus without complication, without long-term current use of insulin E11.9 [facility] [address] [id number] 08/07/2024 Odette Hector Type 2 diabetes gareth itus without complication, without long-term current use of insulin E11.9 ; Colon cancer screening Z12.11 ; Screening mammogram, encounter for Z12.31 ; Morbid obesity E66.01 and Mixed hyperlipidemia E78.2 [facility] [address] [place] [id number] 11/11/2024 Odette Young Type 2 diabetes gareth itus without complication, without long-term current use of insulin E11.9 ; Essential hypertension I10 ; Morbid obesity E66.01 ; Mixed hyperlipidemia E78.2 ; Screening mammogram, encounter for Z12.31 and Colon cancer screening Z12.11 [facility] [address] [place], [place] [id number] 02/11/2025 Odette Young Type 2 diabetes gareth itus without complication, without long-term current use of insulin E11.9 ; Essential hypertension I10 ; Morbid obesity E66.01 and Mixed hyperlipidemia E78.2 [facility] [address] [place] [id number] 03/11/2024 Lisha Galloway [facility] [address] [place], [place] [id number] 03/20/2024 Odette Crowsissy [facility] [address] [place], [place] [id number] 04/08/2024 Odette Crowsissy [facility] [address] [place] [id number] 06/04/2024 Lisha Galloway [facility] [address] [place] [id number] 07/01/2024 Odetteradha Young [facility] [address] [place] [id number] 07/24/2024 Lisha Galloway [facility] [address] [place] [id number] 07/30/2024 Lisha Galloway [facility] [address] [place] [id number] 08/13/2024 Odette Crowsissy [facility] [address] [place] [id number] 09/21/2024 Lisha Galloway Type 2 diabetes gareth itus without complication, without long-term current use of insulin E11.9 [facility] [address] [place] [id number] 10/20/2024 Lisha Galloway Type 2 diabetes gareth itus without complication, without long-term current use of insulin E11.9 [facility] [address] [place], [place] [id number] 11/13/2024 Odette Young [facility] [address] [facility] [address] [place], [place] [id number] 11/27/2024 Odette Young [facility] [address] [facility] [address] [place], [place] [id number] 12/15/2024 Lisha Galloway Type 2 diabetes gareth itus without complication, without long-term current use of insulin E11.9 [facility] [facility] [address] [place], [place] [id number] 01/12/2025 Lisha Galloway Type 2 diabetes gareth itus [...] current use of insulin (ICD-10 - E11.9) 12/15/2024 Type 2 diabetes mellitus without complication, without long-term current use of insulin (ICD-10 - E11.9) 01/12/2025 Type 2 diabetes mellitus without complication, without long-term current use of insulin (ICD-10 - E11.9) 02/11/2025 Essential hypertension (ICD-10 - I10) 02/11/2025 Type 2 diabetes mellitus without complication, without long-term current use of insulin (ICD-10 - E11.9) 02/11/2025 Morbid obesity (ICD-10 - E66.01) 08/07/2024 Screening mammogram, encounter for (ICD-10 - Z12.31) 11/11/2024 Morbid obesity (ICD-10 - E66.01) 08/07/2024 Morbid obesity (ICD-10 - E66.01) 11/11/2024 Mixed hyperlipidemia (ICD-10 - E78.2) 02/11/2025 Mixed hyperlipidemia (ICD-10 - E78.2) 11/11/2024 Screening mammogram, encounter for (ICD-10 - Z12.31) 08/07/2024 Mixed hyperlipidemia (ICD-10 - E78.2) 11/11/2024 Colon cancer screening (ICD-10 - Z12.11) Plan Of Treatment Pending Test Test Name Order Date Cologuard 08/02/2023 Cologuard 08/07/2024 H-TSH 06/14/2021 H-Lipid Panel 06/14/2021 H-CMP 06/14/2021 Next Appt Details Provider Name:Odette davis, 08/11/2025 04:00:00 PM, [address], [address], [place], [place], [id number], Insurance Providers Payer Name Payer Address Payer Phone Subscriber Number Group Number Insured Name Patient Relationship to Insured Coverage Start Date Coverage End Date [facility] [address] [place] [address] [id number] 2000 [id number] [id number] Self - patient is the [...] Tonsilectomy Hospitalization History Reason Date(Month/Year) Rehabilitation for [facility] 01/14- Acute Congestive Heart Failure, Cellulit is Hypertension, PRES- 01/06- Cellulitis LLE, Lymphedemia, Strep Infection in blood, Hypotension; Sepsis- [facility] 12/2018
--- OUTSIDE RECORDS SUMMARY | 2025-02-22 14:56 | XMS_ITS | Patient Health Record ---
Author Organization [facility] Address [address] [place] [address] [place] [address] Care Team Providers Care Print Shop Assistant Name Role Phone MICA KOLB Unavailable [phone] Reason For Referral No Information Medications Medication SIG (Take, Route, Frequency, Duration) Notes Start Date End Date Status Bumex 1 MG 1 tablet Orally twic e a day; Duration: 30 day(s) 04/24/2017 Active Atorvastatin Calcium 40 MG 1 tablet Oral ly Once a day; Duration: 30 day(s) Active Levothyroxine Sodium 100 MCG 1 tablet on an empty stomach in the morning Orally Once a day; Duration: 30 day(s) Active Xyzal 5 MG 1 tablet in the even ing Orally Once a day; Duration: 30 day(s) Active Claritin 10 MG 1 tablet Orally Once a day; Duration: 30 day(s) Active Problems Problem Type SNOMED Code ICD Code Onset Dates Problem Status W/U Status Risk Notes Problem Benign hypertension (31597345) Benign hypertension (I10) Active confirmed Problem Type II diabetes mellitus without complication (607106236) Controlled type 2 diabetes mellitus without complication, unspecified ocean 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 [address] [place] [address] [id number] 2000 [id number] [id number] Self - patient is the insured Medical (General) History Surgical History Surgery Date(Month/Year) Hypertension High Cholesterol
--- OUTSIDE RECORDS SUMMARY | 2025-02-22 14:56 | XMS_ITS | Clinical Summary ---
Author Organization [facility] Address [address] [place] [address] Care Team Providers Care Seamless Hosiery Knitter Name Role Phone Guanako Galloway MD Primary Care Provider [phone] Family History Medical History Relation Name Comments [...] Not on file Insurance ANTHEM Care Teams Seamless Hosiery Knitter Relationship Specialty Start Date End Date Guanako Galloway MD [address] [place] [address] PCP - General 10/14/20
--- OUTSIDE RECORDS SUMMARY | 2025-02-22 14:56 | XMS_ITS | Clinical Summary ---
Author Organization [facility] Address [address] [place] [address] Care Team Providers Care Placer Miner Name Role Phone Provider, No Known Primary Care Provider [phone] Social History Tobacco Use Types Packs/Day Years Used Date Smoking Tobacco: Never Assessed Abuse Screen Answer Date Recorded Unsafe at Home or Work/School Not on file Feels Threatened by Someone? Not on file 04/2023 Does Anyone Keep You from Co ntacting Others or Doint Things Outside the Home? Not on file 03/13/2023 Physical Sign of Abuse Present Not on file 1 Housing Stability Answer Date Recorded Current Living Arrangements Not on file 03/03 Potentially Unsafe Housing Conditions Not on javier e 03/13/2023 Family and Community Support Answer Geovany e Recorded Help with Day-to-Day Activities Not on file 03/13/2023 Lonely or Isolated Not on file 03/13/2023 Employment Answer Date Recorded Do you want help finding or keeping work or a richie b? Not on file 03/13/2023 Disabilities Answer Date Recorded Concentrating, Remembering, or Making Decisions Difficulty Not on file 03/13/2023 Doing Errands Independently Difficulty Not on fi le 03/13/2023 Education Answer Date Recorded Help with school or training? Not on file Preferred Language Not on file 03/13/2023 Comments Unknown Sex and Gender Information Value Date Recorded Sex Assigned at Not on file Legal Sex Female 10:21 AM EDT Gender Identity Not on file Sexual Orientation Not on file Plan of Treatment Health Maintenance Due Date Last Done Comments ANNUAL PHYSICAL 1970 Annual Gynecologic Pelvic and Breast Exam 1970 HEPATITIS C SCREENING 1970 TDAP/TD VACCINES (1 - Tdap) 1989 MAMMOGRAM 2010 COLOGUARD 2015 COLON CANCER SCREENING 5 YEAR SIGMOIDOSCOPY 2015 COLONOSCOPY 2015 [address] CANCER SCREENING 2015 CT COLONOGRAPHY 2015 FECAL OCCULT BLOOD TEST 2015 FIT Testing (1 year) 2015 Pneumococcal Vaccine 50+ (1 of 1 - PCV) 2020 ZOSTER VACCINE (1 of 2) 2020 INFLUENZA VACCINE 01/01/2025 Care Teams Placer Miner Relationship Specialty Start Date End Date Provider, [place] [address] PCP - General 09/06/15
--- NOTE | 2025-02-22 15:15 | CA_ITS ---
APPROVED REPORT EXAM: Comprehensive 2D, Doppler, and color-flow Echocardiogram Edger Machine Operator: Nilda Fair RVT Ht: 5 ft 6 in Wt: 270lbs BSA: 2.27 BP: 161/89 mmHg Indications: MITRAL AND AORTIC VALVE DISEASE,SHORTNESS OF BREATH TDS 2D Dimensions IVSd 1.25 cm F: 0.6-1.0 LVEF (Visual) 65.50 % PWd 1.15 cm F: 0.6 - 1.0 LA Volume 85.90 mL LVDd 3.87 cm F: 3.9 - 5.3 LA Volume Index 37.84 mL/m2 (M/F) 16-34 LVDs 0.75 cm F: 2.2 - 3.5 M-Mode Dimensions LA Diam 4.22 cm (1.9-4.0) TAPSE 2.02 (<1.7) LV Diastology E Decel Time 310 (160-240 msec) E/A Ratio 0.9 Aortic Valve JAYLEN Index 0.93 cm2/m2 AoV Peak Brian. 337.0 (50-130 cm/s) AO Peak GR. 45.50 mmHg AO Mean GR. 27.10 (<5 mmHg) AO VTI 59.5 (18-25 cm) JAYLEN (VTI) 2.17 (2.5-4.5 cm2) Mitral Valve MV E Max Brian. 124.0 (40-130 cm/s) MV A Velocity 138.0 (40-130 cm/s) E/A Ratio 0.90 MV Mean Gr. 4.00 (<2mmHg) MV PHT 91.0 ms Pulmonary Valve PV Peak Velocity 205.0 (50-150 cm/s) Left Ventricle The left ventricle is normal size. Left ventricular systolic function is normal. The left ventricular ejection fraction is within the normal range. There is increased left ventricular wall thickness. There is normal LV segmental wall motion. The left ventricular diastolic function is indeterminate. LVEF is 55% Right Ventricle The right ventricle is mildly dilated. The right ventricular systolic function is normal. Atria The left atrium is moderately dilated. The right atrium size is mildly dilated. There is no color Doppler evidence of interatrial shunt. Aortic Valve The aortic valve is moderately thickened, cannot rule out bicuspid aortic valve. Mild to moderate aortic stenosis is present. JAYLEN by continuity equation is 1.5 cm2. Peak velocity 3.1 m/s. Mean AV gradient 22 mmHg. Max AV gradient 40 mmHg. Trace aortic regurgitation is present. Mitral Valve Moderate mitral annular calcification is present. The mitral valve leaflets are thickened. Mild mitral stenosis is present. MVA by PHT method is 2.4 cm2. Mean MV gradient is 5 mmHg (HR 78 bpm). Mild mitral regurgitation is present. Tricuspid Valve The tricuspid valve leaflets are thin and pliable. Trace tricuspid regurgitation. There is insufficient TR jet to estimate RVSP. Pulmonic Valve The pulmonary valve is mildly thickened. Trace pulmonic valve regurgitation is present. Great Vessels The aortic root is normal in size. IVC is normal in size and collapses >50% with inspiration. Pericardium There is no pericardial effusion. Other Information Study Quality: Fair Conclusion Normal biventricular systolic function. Mild RV dilation. Biatrial dilation. Thickened AV leaflets, cannot rule out bicuspid AV Mild to moderate (JAYLEN by continuity equation is 1.5 cm2. Peak velocity 3.1 m/s. Mean AV gradient 22 mmHg. Max AV gradient 40 mmHg). Moderate MAC, thickened MV leaflets Mild MS (MVA by PHT method is 2.4 cm2. Mean MV gradient is 5 mmHg [HR 78 bpm]) Mild TR. Electronically signed by : Jennifer Petty MD 02/23/2025 00:50:30
== END 2025-02-22 23:59 | disposition home or self-care (01) ==
LOC: RT 14:52
PROVIDERS: PCP Family Medicine; Visit Provider Physician Assistant
DX: I08.3 Combined rheumatic disorders of mitral, aortic and tricuspid valves (principal)
CPT/HCPCS: 93306